=== PATIENT | female | born 1955 | race American Indian/Alaskan Native ===

== ENCOUNTER 2017-11-01 11:23 | Inpatient (IN) | payer MEDICAID ==
[2017-11-01 11:55] VITALS: BMI 22.6
[2017-11-01] MEDS ORDERED: Sodium Chloride 0.9% 1,000 ML IV STA (12:33)
--- NOTE | 2017-11-01 12:46 | ED PDOC ---
Arrival/HPI - General Chief Complaint: Altered Mental Status Time Seen by Provider: 11/01/17 11:35 Historian: Patient - History of Present Illness Narrative History of Present Illness (Text): 11/01/17 12:46 CC: Altered Mental Status HPI: Ms. Santizo is a 62 year old female with a PMHx of HIV on Truvada, emphysema and pulmonary fibrosis who presents with a 2 day history of altered mental status. Patient is accompanied by daughter and granddaughter, and they help fill in history provided by patient. They state that reports that patient has been slurring her words and her sentences have not made sense since yesterday. Daughter reports that patient lives alone and is independent. Reports patient usually responds appropriately and this is new for her. Patient reports subjective fevers, weakness, shortness of breath and productive cough with yellow sputum. Denies chills, chest pain, changes in vision, changes to bowel and bladder habits, rashes. PMHx: HIV on Truvada, emphysema and pulmonary fibrosis, HTN PSHx:denies All: NKDA Social: 1/2 pack a day >30 years, denies ETOH and substance abuse Fam hx: ? thyroid disease Meds: Truvada, Isentress, Clonidine, Advair, Ventolin, Buproprion, Elavil, Ensure, Megace as reported by [facility] PMD: Dr. Cook at [facility] Time/Duration: < week (2 days) Symptom Onset: Gradual Symptom Course: Worsening Activities at Onset: Rest Context: Standing Past Medical History - Provider Review Nursing Documentation Reviewed: Yes - Travel History Have you recently traveled outside [place] w/in the past 3 mons?: No - Infectious Disease Hx of Infectious Diseases: None - Reproductive Menopause: Yes Family/Social History - Physician Review Nursing Documentation Reviewed: Yes Family/Social History: Other (Thyroid) Smoking Status: Light Smoker < 10 Cigarettes Daily Allergies/Home Meds Allergies/Adverse Reactions: Allergies No Known Allergies Allergy (Verified 11/01/17 12:29) Home Medications: Home Meds Medication Instructions Recorded Confirmed Raltegravir Potassium [Isentress] 0 mg PO DAILY 11/01/17 11/01/17 Review of Systems - Review of Systems Constitutional: Fatigue, Weight Change (25 lb loss in 3 months) Eyes: Normal. absent: Vision Changes ENT: Normal. absent: Hearing Changes, Sore Throat Respiratory: SOB, Cough, Sputum, Wheezing Cardiovascular: Normal. absent: Chest Pain, Palpitations Gastrointestinal: Normal. absent: Abdominal Pain Musculoskeletal: Normal. absent: Arthralgias Skin: Normal. absent: Rash, Skin Lesions Neurological: Dizziness. absent: Headache, Speech Changes Endocrine: Normal. absent: Diaphoresis Hemo/Lymphatic: Normal Psychiatric: Normal Physical Exam Vital Signs Reviewed: Yes Vital Signs Temp Pulse Resp BP Pulse Ox 11/01/17 18:30 82 20 130/81 100 11/01/17 17:00 82 18 118/71 99 11/01/17 16:45 88 18 114/73 100 11/01/17 16:23 98 H 18 123/73 100 11/01/17 15:41 84 20 123/77 95 11/01/17 14:20 102 H 19 134/99 H 96 11/01/17 11:53 102.9 F H 110 H 20 147/104 H 100 Temperature: Febrile Blood Pressure: Hypertensive Pulse: Tachycardic Respiratory Rate: Normal Appearance: Positive for: Ill-Appearing, Uncomfortable, Cachectic Pain Distress: Moderate Mental Status: Positive for: Confused (AAOx2) - Systems Exam Head: Present: Atraumatic, Normocephalic Pupils: Present: PERRL Extroacular Muscles: Present: EOMI Conjunctiva: Present: Normal Neck: Present: Normal Range of Motion. No: Meningeal Signs, JVD Respiratory/Chest: Present: Wheezes, Rhonchi (LUQ>RLQ). No: Good Air Exchange Cardiovascular: Present: Regular Rate and Rhythm, Normal S1, S2, Tachycardic. No: Murmurs Abdomen: Present: Normal Bowel Sounds. No: Tenderness, Distention, Peritoneal Signs, Rebound, Guarding Back: Present: Normal Inspection. No: CVA Tenderness Upper Extremity: Present: Normal Inspection. No: Cyanosis, Edema, Swelling Lower Extremity: Present: NORMAL PULSES. No: CALF TENDERNESS, Tenderness Neurological: Present: CN II-XII Intact, Speech Normal (currently not slurred. ) Skin: Present: Warm, Dry, Normal Color. No: Rashes Psychiatric: Present: Alert, Oriented x 3 (x2). No: Normal Insight, Normal Concentration Medical Decision Making ED Course and Treatment: 11/01/17 12:42 Impression: 62 F with past medical history of HIV on Truvada, emphysema, pulmonary fibrosis and hypertension who presents with altered mental status, shortness of breath and SIRS with unknown source of infection. Last T cell count 355 in 06/13, awaiting viral load and further records. Plan: Awaiting [facility] records CBC CMP CXR CT head without contrast UA, urine cx blood cx NS bolus 11/01/17 14:37 CT head: no acute finding CXR: L upper lobe interstitial infiltrate, minimal in RLL. LP consent signed. Risks and benefits discussed with patient and family members , and patient agrees to plan. 11/01/17 15:27 Lumbar puncture performed with appropriate supervision with Dr. Frederick and under sterile conditions. 4 containers of clear cerebrospinal fluid collected, labeled, and sent to lab. Patient tolerated procedure well, sitting on side of bed flexing head and chest forward onto stool. Patient instructed to lie supine for 45 minutes. 11/01/17 18:15 Patient started on Levaquin 750 mg and Acyclovir IV for ? herpes cerebritis. ID consult placed. Unlikely PCP PNA due to lack of bilateral findings. Awaiting csf results as well as CSF count, LDH, herpes, cryptococcus, VDRL, pancultures, and procal. 11/01/17 18:58 Patient will be admitted to hospitalist service- call made to hospitalist Dr. Hewitt and medicine resident. - Lab Interpretations Lab Results: 11/01/17 13:20 11/01/17 12:45 Lab Results 11/01/17 16:54: Fluid Type Spinal fluid, CSF Volume 2 H, CSF Appearance Clear/ colorless, CSF WBC 18.0 H, CSF RBC 10.0 H, CSF Total Cell Counted 100 H, CSF Neutrophils 1 H, CSF Lymphocytes 98.0 H, CSF Monos/Macrophages 1 H, CSF Comment Straw 11/01/17 16:54: CSF Glucose 70, CSF Total Protein 37.0 11/01/17 13:20: pO2 22 L, VBG pH 7.36, VBG pCO2 58.0, VBG HCO3 32.8 H, VBG Total CO2 34.6 H, VBG O2 Sat (Calc) 42.0, VBG Base Excess 5.6 H, VBG Potassium 4.7, Glucose 87, Lactate 1.5, FiO2 21.0, Sodium 134.0, Chloride 98.0, Venous Blood Potassium 4.7 11/01/17 13:20: WBC 7.2, RBC 4.66, Hgb 14.3, Hct 45.3, MCV 97.2, MCH 30.7, MCHC 31.6, RDW 15.8 H, Plt Count 193, MPV 11.5 H, Gran % 86.7 H, Lymph % (Auto) 8.3 L , Johnston % (Auto) 4.8, Eos % (Auto) 0.1 L, Baso % (Auto) 0.1, Gran # 6.27, Lymph # (Auto) 0.6 L, Johnston # (Auto) 0.4, Eos # (Auto) 0.0, Baso # (Auto) 0.01 11/01/17 12:45: Sodium 139, Potassium 4.8, Chloride 98, Carbon Dioxide 32, Anion Gap 13, BUN 12, Creatinine 0.8, Est GFR ( Amer) > 60, Est GFR (Non- Af Amer) > 60, Random Glucose 68 L, Calcium 8.3 L, Total Bilirubin 0.6, AST 51 H , ALT 31, Alkaline Phosphatase 136 H, Total Protein 8.8 H, Albumin 3.4, Globulin 5.4, Albumin/Globulin Ratio 0.6 L 11/01/17 11:55: Urine Color Yellow, Urine Appearance Clear, Urine pH 7.0, Ur Specific [place] 1.025, Urine Protein 30 H, Urine Glucose (UA) Negative, Urine Ketones Negative, Urine Blood Negative, Urine Nitrate Negative, Urine Bilirubin Negative, Urine Urobilinogen >=8.0, Ur Leukocyte Esterase Trace H, Urine RBC 0 - 2, Urine WBC 2 - 5, Ur Epithelial Cells 6 - 8, Amorphous Sediment Few, Urine Bacteria Many, Hyaline Casts 0 - 2, Coarse Granular Casts Trace H, Urine Other Uyeast - RAD Interpretation Radiology Orders: 11/01/17 12:29 CHEST TWO VIEWS (PA/LAT) [RAD] Stat 11/01/17 12:31 HEAD W/O CONTRAST [CT] Stat - Medication Orders Current Medication Orders: Acyclovir 635 mg/ Sodium (Chloride) 100 mls @ 100 mls/hr IV Q8 KARYN PRN Reason: Protocol Discontinued Medications Sodium Chloride (Sodium Chloride 0.9%) 1,000 mls @ 999 mls/hr IV .Q1H1M STA Stop: 11/01/17 13:33 Last Admin: 11/01/17 12:30 Dose: 999 mls/hr eMAR Start Stop Document 11/01/17 12:30 SZA (Rec: 11/01/17 14:24 [facility] [id number]) Intravenous Solution Start Date 11/01/17 Start Time 12:30 End Date 11/01/17 End time 13:30 Total Infusion Time 60 Levofloxacin/Dextrose (Levaquin 750mg) 750 mg IVPB STAT STA PRN Reason: Protocol Stop: 11/01/17 18:24 Last Admin: 11/01/17 19:16 Dose: 750 mg eMAR Start Stop Document 11/01/17 19:16 SHAYLA (Rec: 11/01/17 19:16 [facility] [id number]) Intravenous Solution Start Date 11/01/17 Start Time 19:00 End Date 11/01/17 End time 20:30 Total Infusion Time 90 Disposition/Present on Arrival - Present on Arrival Any Indicators Present on Arrival: No History of DVT/PE: No History of Uncontrolled Diabetes: No Urinary Catheter: No History of Decub. Ulcer: No History Surgical Site Infection Following: None - Disposition Have Diagnosis and Disposition been Completed?: Yes Diagnosis: Pneumonia, Altered mental state Disposition: HOSPITALIZED Disposition Time: 18:00 Patient Plan: Admission Patient Problems: Current Active Problems Problem Status Onset Altered mental state Acute Pneumonia Acute Condition: FAIR
[2017-11-01 13:34] LABS: VENOUS BLOOD GAS BASE EXCESS 5.6 mmol/L (0.0-2.0); VENOUS BLOOD GAS PO2 22 mm/Hg (30-55); VENOUS BLOOD PH 7.36 (7.32-7.43)
[2017-11-01 13:38] LABS: HEMOGLOBIN 14.3 g/dL (12.0-16.0); MEAN CELL VOLUME 97.2 fl (80.0-105.0); MEAN CORPUSCULAR HEMOGLOBIN 30.7 pg (25.0-35.0); MEAN CORPUSCULAR HGB CONC 31.6 g/dl (31.0-37.0); RBC 4.66 10^6/uL (3.5-6.1); RED CELL DISTRIBUTION WIDTH 15.8 % (11.5-14.5); WHITE BLOOD COUNT 7.2 10^3/ul (4.5-11.0)
[2017-11-01 13:38] LABS: URINE BILIRUBIN NEGATIVE (NEGATIVE); URINE BLOOD NEGATIVE (NEGATIVE); URINE GLUCOSE (UA) NEGATIVE (NEGATIVE); URINE LEUKOCYTE ESTERASE TRACE Leu/uL (NEGATIVE); URINE PROTEIN 30 mg/dL (<30 mg/dL); URINE UROBILINOGEN >=8.0 E.U./dL (<1 E.U./dL)
[2017-11-01 13:39] LABS: BASO # 0.01 K/mm3 (0.0-2.0); BASO % 0.1 % (0.0-3.0); EOS % 0.1 % (1.5-5.0); GRAN # 6.27 (1.4-6.5); GRAN % 86.7 % (50.0-68.0); LYMPH # 0.6 (1.2-3.4); LYMPH % 8.3 % (22.0-35.0); MEAN PLATELET VOLUME 11.5 fl (7.0-11.0); MONO # 0.4 (0.1-0.6); MONO % 4.8 % (1.0-6.0)
--- NOTE | 2017-11-01 14:12 | CT ---
Date of service: 11/01/2017 PROCEDURE: CT HEAD WITHOUT CONTRAST. HISTORY: AMS COMPARISON: None available. TECHNIQUE: Axial computed tomography images were obtained through the head/brain without intravenous contrast. Radiation dose: Total exam DLP = 782 mGy-cm. This CT exam was performed using one or more of the following dose reduction techniques: Automated exposure control, adjustment of the mA and/or kV according to patient size, and/or use of iterative reconstruction technique. FINDINGS: HEMORRHAGE: No intracranial hemorrhage. BRAIN: No mass effect or edema. No atrophy or chronic microvascular ischemic changes. VENTRICLES: Unremarkable. No hydrocephalus. CALVARIUM: Unremarkable. PARANASAL SINUSES: Unremarkable as visualized. No significant inflammatory changes. MASTOID AIR CELLS: Unremarkable as visualized. No inflammatory changes. OTHER FINDINGS: None. IMPRESSION: No acute findings
--- NOTE | 2017-11-01 14:14 | RAD ---
Date of service: 11/01/2017 HISTORY: shortness of breath COMPARISON: No prior. TECHNIQUE: Chest PA and lateral FINDINGS: LUNGS: There is a left upper lobe interstitial infiltrate and a minimal interstitial infiltrate in the right lower lobe. PLEURA: No significant pleural effusion identified. No pneumothorax apparent. CARDIOVASCULAR: Normal. OSSEOUS STRUCTURES: No significant abnormalities. VISUALIZED UPPER ABDOMEN: Normal. OTHER FINDINGS: None. IMPRESSION: There is a left upper lobe interstitial infiltrate and a minimal interstitial infiltrate in the right lower lobe.
[2017-11-01 14:41] LABS: URINE APPEARANCE CLEAR (CLEAR); URINE COLOR YELLOW (YELLOW)
[2017-11-01 14:52] LABS: URINE BACTERIA MANY (NEG); URINE HYALINE CAST 0 - 2 /hpf; URINE RBC 0 - 2 /hpf (0-2)
[2017-11-01 14:53] LABS: URINE AMORPHOUS SEDIMENT FEW; URINE COARSE GRANULAR CAST TRACE /hpf (0-2)
--- NOTE | 2017-11-01 15:54 | CARD ---
APPROVED REPORT Date of service: 11/01/2017 EKG Measurement Heart [id number] <Conclusion> Sinus tachycardia Left anterior fascicular block Anteroseptal infarct, age undetermined Abnormal ECG
[2017-11-01] MEDS ORDERED: Lidocaine PF 2% (5 ml) Inj (For Cardiac Arrhy) ONE (16:27)
[2017-11-01 16:55] LABS: FLUID TYPE SPINAL FLUID
[2017-11-01 18:16] LABS: CSF VOLUME 2 mL (0-1)
[2017-11-01 18:17] LABS: CSF APPEARANCE CLEAR/COLORLESS (CLEAR)
[2017-11-01] MEDS ORDERED: levoFLOXacin 750 mg in D5W 150 ML BAG IVPB STA (18:23)
[2017-11-01 18:31] LABS: ALB/GLOB RATIO 0.6 (1.1-1.8); ALBUMIN 3.4 g/dL (3.0-4.8); ALT/SGPT 31 U/L (7-56); AST/SGOT 51 U/L (14-36); BLOOD UREA NITROGEN 12 mg/dL (7-21); CALCIUM 8.3 mg/dL (8.4-10.5); GFR NON-AFRICAN AMERICAN > 60
[2017-11-01 18:59] LABS: CSF MONO/MACROPHAGE 1 % (0-0)
[2017-11-01] MEDS ORDERED: Vancomycin 1gm in NS 250ml 1 GM/250 ML BAG IVPB STA (20:22)
[2017-11-01] MEDS ORDERED: Fluconazole IV 200mg/100 ml NS 100 ML IVPB ONE (20:40)
--- NOTE | 2017-11-01 21:19 | CP.PCM.HP ---
<Levon Chamberlain - Last Filed: 11/01/17 21:07> History of Present Illness - History of Present Illness History of Present Illness: Levon Chamberlain DO PGY-1, [employer] Medicine History and Physical for Dr. Hewitt 62 y o female PMhx HIV on Truvada, emphysema, and pulmonary fibrosis, who presented to the ED with a 2 day hx of AMS. Pt was accompanied at bedside by daughter and her fiance, unable to obtain hx or 12-point ROS from pt due to current mental status. Pt's family at bedside states that pt's reported that pt was confabulating her words, clear speech, but states words out of order that did not make sense; this has been occurring since yesterday. Pt's daughter reported that pt lives alone and is independent with ADLs, but recently over the past several months has been doing activities more slowly and has been more fatigued. Reports pt has had a 15 y hx since being diagnosed with HIV. Last viral load < 20, T-cell count 355 in May 2017. Pt at time of presentation to ED reported subjective fevers, weakness, shortness of breath, and productive cough with yellow sputum. Denied chills, chest pain, vision changes, changes in bowel/bladder habits, or new rashes. Medical records being obtained by ED from [facility]. PMhx: HIV on Truvada, emphysema, pulmonary fibrosis, HTN PSurgHx: denies Allergies: NKDA Social: 1/2 ppd since age 16, denies EtOH and substance abuse Fam hx: ?thyroid disease Home meds: Truvada, Isentress, Clonidine, Advair, Ventolin, Buproprion, Elavil, Ensure, Megace as reported by [facility] PMD: Dr. Cook at [facility]; pt's family unsure if pt follows with ID specialist Present on Admission - Present on Admission Any Indicators Present on Admission: No Review of Systems - Review of Systems Systems not reviewed;Unavailable: Altered Mental Status - Constitutional Constitutional: As Per HPI - Cardiovascular Cardiovascular: As Per HPI - Respiratory Respiratory: As Per HPI Past Patient History - Infectious Disease Hx of Infectious Diseases: None - Past Social History Smoking Status: Light Smoker < 10 Cigarettes Daily - CARDIAC Hx Cardiac Disorders: No - PULMONARY Other/Comment: pulmonary fibrosis - NEUROLOGICAL Hx Neurological Disorder: No - HEMATOLOGICAL/ONCOLOGICAL Hx Human Immunodeficiency Virus (HIV): Yes - PSYCHIATRIC Hx Substance Use: No - SURGICAL HISTORY Hx Surgeries: No - ANESTHESIA Hx Anesthesia: No Meds Allergies/Adverse Reactions: Allergies Allergy/AdvReac Type Severity Reaction Status Date / Time No Known Allergies Allergy Verified 11/01/17 12:29 Physical Exam - Constitutional Appears: No Acute Distress, Chronically Ill Additional comments: Difficult to arouse at bedside - Head Exam Head Exam: ATRAUMATIC, NORMAL INSPECTION - Eye Exam Eye Exam: EOMI, Normal appearance, PERRL - ENT Exam ENT Exam: Mucous Membranes Moist - Respiratory Exam Respiratory Exam: Clear to Auscultation Bilateral, Rales, NORMAL BREATHING PATTERN. absent: Wheezes - Cardiovascular Exam Cardiovascular Exam: REGULAR RHYTHM, +S1, +S2 - GI/Abdominal Exam GI & Abdominal Exam: Normal Bowel Sounds, Soft. absent: Distended, Guarding, Organomegaly, Tenderness - Extremities Exam Extremities exam: Positive for: full ROM, normal capillary refill, pedal pulses present - Neurological Exam Neurological exam: Reflexes Normal Additional comments: AAOx1 - Skin Skin Exam: Dry, Intact, Warm Results - Vital Signs Recent Vital Signs: Last Vital Signs Temp 98.8 F 11/01/17 18:30 Pulse 82 11/01/17 18:30 Resp 20 11/01/17 18:30 BP 130/81 11/01/17 18:30 Pulse Ox 100 11/01/17 18:30 - Labs Result Diagrams: 11/01/17 13:20 11/01/17 12:45 Assessment & Plan - Assessment and Plan (Free Text) Assessment: 62 y o female PMhx HIV on Truvada, emphysema, and pulmonary fibrosis, who presented to the ED with a 2 day hx of AMS. Found on CXR to have L upper lobe interstitial infiltrate and minimal interstitial infiltrate in R lower lobe. Head CT neg for acute changes. Lumbar puncture done in ED, fluid studies pending. Plan: AMS -Head CT neg for acute changes -Likely 2/2 chronic HIV, r/o meningitis, encephalitis -Lumbar puncture done in ED, fluid studies pending -Neuro checks q 4 h Pneumonia -R/o atypical etiologies due to HIV status -CXR findings as described in assessment -Sputum, blood, urine cxs pending -1x vancomycin -2 g rocephin IVPB daily -Zithromax -Bactrim -Pending ESR, CRP, Cryptococcal Ag, HSV -ID consulted, recs appreciated -Keep pt NPO due to aspiration risk Candidiasis -1x diflucan IV, observed on exam Hx HIV -C/w truvada -Verify home meds with records being sent from [facility] DVT/GI ppx: SCDs/Protonix Pt seen, examined with, and plan discussed with Dr. Hewitt, attending. <Rashida Hewitt - Last Filed: 11/02/17 04:59> Results - Vital Signs Recent Vital Signs: Last Vital Signs Temp 98.5 F 11/01/17 22:30 Pulse 107 H 11/01/17 22:30 Resp 18 11/01/17 22:30 BP 112/80 11/01/17 22:30 Pulse Ox 100 11/01/17 20:25 - Labs Result Diagrams: 11/01/17 13:20 11/01/17 12:45 Labs: Laboratory Results - last 24 hr 11/01/17 21:05 Troponin I 0.09 Attending/Attestation - Attestation I have personally seen and examined this patient.: Yes I have fully participated in the care of the patient.: Yes I have reviewed all pertinent clinical information: Yes
[2017-11-01] MEDS: SODIUM CHLORIDE 0.9% IV SCH (22:26)
[2017-11-01] MEDS: ACYCLOVIR IV SCH (22:26)
[2017-11-01] MEDS: SULFAMETHOXAZOLE IVPB SCH (23:29)
[2017-11-01] MEDS: TRIMETHOPRIM IVPB SCH (23:29)
[2017-11-01] MEDS: DEXTROSE 5% IVPB SCH (23:29)
[2017-11-01] MEDS: WATER IVPB SCH (23:29)
[2017-11-02] MEDS: Dextrose 5%/0.9% NS 1,000 ML IV SCH ×2 (05:17→21:25)
[2017-11-02] MEDS: SODIUM CHLORIDE 0.9% IV SCH ×3 (05:53→22:31)
[2017-11-02] MEDS: ACYCLOVIR IV SCH ×3 (05:53→22:31)
[2017-11-02 07:05] LABS: ALB/GLOB RATIO 0.6 (1.1-1.8); ALBUMIN 2.8 g/dL (3.0-4.8); ALT/SGPT 31 U/L (7-56); AST/SGOT 30 U/L (14-36); BLOOD UREA NITROGEN 11 mg/dL (7-21); CALCIUM 7.6 mg/dL (8.4-10.5); GFR NON-AFRICAN AMERICAN > 60
[2017-11-02 07:11] LABS: BASO # 0.01 K/mm3 (0.0-2.0); BASO % 0.1 % (0.0-3.0); EOS % 0.2 % (1.5-5.0); GRAN # 6.77 (1.4-6.5); GRAN % 84.3 % (50.0-68.0); HEMOGLOBIN 12.8 g/dL (12.0-16.0); LYMPH # 0.8 (1.2-3.4); LYMPH % 10.5 % (22.0-35.0); MEAN CELL VOLUME 98.1 fl (80.0-105.0); MEAN CORPUSCULAR HEMOGLOBIN 29.8 pg (25.0-35.0); MEAN CORPUSCULAR HGB CONC 30.3 g/dl (31.0-37.0); MEAN PLATELET VOLUME 10.4 fl (7.0-11.0); MONO # 0.4 (0.1-0.6); MONO % 4.9 % (1.0-6.0); RBC 4.3 10^6/uL (3.5-6.1); RED CELL DISTRIBUTION WIDTH 15.5 % (11.5-14.5)
--- NOTE | 2017-11-02 08:03 | CP.PCM.CON ---
<Trang Stacy - Last Filed: 11/02/17 19:21> History of Present Illness - History of Present Illness History of Present Illness: Pgy3 ID Consult note for Dr. Brumfield Please note patient was a poor historian who could not recall events that brought her to the ER and there was no family at bedside so history as per EMR 62yo female PMHx HIV on HAART, pulmonary fibrosis, and emphysema presents to the ER with 2 days of AMS. As per EMR patient's boyfriend reported she was speaking incoherently; the patient recalled that she was becoming aggravated and her boyfriend called EMS. As per EMR patient at baseline lives alone and completes ADLs independently however over the past several months she has been doing things slowly and has become more fatigued. Patient was diagnosed with HIV 15 years ago and has been compliant with medications. She follows up with Dr. Urbina and her last viral load was <20 and T-cell count was 355 in May 2017. Patient stated she had an appointment on November 10, 2017. This AM patient was ao x 3 and resting comfortably. She denied acute complaints of fever, chills, headache, dizziness, chest pain, palpitations, abdominal pain , nausea, vomiting, bowel/bladder complaints, pain/swelling in her legs bilaterally. She admitted to a cough which was productive with phlegm but no hemoptysis and some dyspnea on exertion which is chronic. PMHx: HIV on Truvada and Isentress, emphysema, pulmonary fibrosis, HTN PSurgHx: denies Meds: pls see chart ALL: NKDA SocHx: 1/2 ppd since age 16, denies EtOH and substance abuse FamHx: ?thyroid disease PMD: Dr. Cook at [facility] HIV specialist: Dr. Urbina Review of Systems - Review of Systems All systems: reviewed and no additional remarkable complaints except Review of Systems: pls see chart Past Patient History - Infectious Disease Hx of Infectious Diseases: None - Past Social History Smoking Status: Light Smoker < 10 Cigarettes Daily - CARDIAC Hx Cardiac Disorders: No - PULMONARY Other/Comment: pulmonary fibrosis - NEUROLOGICAL Hx Neurological Disorder: No - HEMATOLOGICAL/ONCOLOGICAL Hx Human Immunodeficiency Virus (HIV): Yes - MUSCULOSKELETAL/RHEUMATOLOGICAL Hx Falls: Yes - PSYCHIATRIC Hx Substance Use: No - SURGICAL HISTORY Hx Surgeries: No - ANESTHESIA Hx Anesthesia: No Meds Allergies/Adverse Reactions: Allergies Allergy/AdvReac Type Severity Reaction Status Date / Time No Known Allergies Allergy Verified 11/01/17 12:29 - Medications Medications: Current Medications Acyclovir 635 mg/ Sodium (Chloride) 100 mls @ 100 mls/hr IV Q8 [facility] PRN Reason: Protocol Last Admin: 11/02/17 05:53 Dose: 100 mls/hr Ceftriaxone Sodium (Rocephin 2 Gm Ivpb) 2 gm in 100 mls @ 100 mls/hr IVPB DAILY [facility] PRN Reason: Protocol Azithromycin (Zithromax 500mg In Ns) 500 mg in 250 mls @ 167 mls/hr IVPB DAILY [facility] PRN Reason: Protocol Trimethoprim/Sulfamethoxazole (254 mg/ Dextrose) 500 mls @ 250 mls/hr IVPB Q12 [facility] Last Admin: 11/01/17 23:29 Dose: 250 mls/hr Dextrose/Sodium Chloride (Dextrose 5%/0.9% Ns 1000 Ml) 1,000 mls @ 70 mls/hr IV .[id number] [facility] Last Admin: 11/02/17 05:17 Dose: 70 mls/hr Pantoprazole Sodium (Protonix Inj) 40 mg IVP DAILY [facility] Physical Exam - Constitutional Appears: No Acute Distress - Head Exam Head Exam: ATRAUMATIC, NORMAL INSPECTION, NORMOCEPHALIC - Eye Exam Eye Exam: EOMI, Normal appearance, PERRL. absent: Conjunctival injection, Scleral icterus - ENT Exam ENT Exam: Mucous Membranes Dry - Respiratory Exam Respiratory Exam: Prolonged Expiratory Phase, Rhonchi, Wheezes. absent: Accessory Muscle Use, Clear to Auscultation Bilateral, NORMAL BREATHING PATTERN - Cardiovascular Exam Cardiovascular Exam: Tachycardia, +S1, +S2 - GI/Abdominal Exam GI & Abdominal Exam: Normal Bowel Sounds, Soft. absent: Tenderness - Rectal Exam Rectal Exam: Deferred - Extremities Exam Extremities exam: Positive for: normal capillary refill, normal inspection, pedal pulses present. Negative for: pedal edema - Neurological Exam Neurological exam: Alert, CN II-XII Intact, Oriented x3 - Psychiatric Exam Psychiatric exam: Normal Affect, Normal Mood - Skin Skin Exam: Dry, Intact, Normal Color, Warm Results - Vital Signs Recent Vital Signs: Last Vital Signs Temp 98 F 11/02/17 06:00 Pulse 92 H 11/02/17 06:00 Resp 20 11/02/17 06:00 BP 116/77 11/02/17 06:00 Pulse Ox 97 11/02/17 06:00 - Labs Result Diagrams: 11/02/17 06:18 11/02/17 06:18 Labs: Laboratory Results - last 24 hr 11/01/17 11/02/17 11/02/17 21:05 06:18 06:18 WBC 8.0 RBC 4.30 Hgb 12.8 Hct 42.2 MCV 98.1 MCH 29.8 MCHC 30.3 L RDW 15.5 H Plt Count 188 MPV 10.4 Gran % 84.3 H Lymph % (Auto) 10.5 L [place] % (Auto) 4.9 Eos % (Auto) 0.2 L Baso % (Auto) 0.1 Gran # 6.77 H Lymph # (Auto) 0.8 L [place] # (Auto) 0.4 Eos # (Auto) 0.0 Baso # (Auto) 0.01 Sodium 135 Potassium 4.5 Chloride 99 Carbon Dioxide 31 Anion Gap 9 L BUN 11 Creatinine 0.7 Est GFR ( Amer) > 60 Est GFR (Non-Af Amer) > 60 POC Glucose (mg/dL) Random Glucose 87 Calcium 7.6 L Total Bilirubin 0.5 AST 30 ALT 31 Alkaline Phosphatase 110 Troponin I 0.09 Total Protein 7.5 Albumin 2.8 L Globulin 4.7 Albumin/Globulin Ratio 0.6 L 11/02/17 06:43 WBC RBC Hgb Hct MCV MCH MCHC RDW Plt Count MPV Gran % Lymph % (Auto) [place] % (Auto) Eos % (Auto) Baso % (Auto) Gran # Lymph # (Auto) [place] # (Auto) Eos # (Auto) Baso # (Auto) Sodium Potassium Chloride Carbon Dioxide Anion Gap BUN Creatinine Est GFR ( Amer) Est GFR (Non-Af Amer) POC Glucose (mg/dL) 80 Random Glucose Calcium Total Bilirubin AST ALT Alkaline Phosphatase Troponin I Total Protein Albumin Globulin Albumin/Globulin Ratio Assessment & Plan - Assessment and Plan (Free Text) Assessment: 62yo female PMHx HIV on HAART, pulmonary fibrosis, and emphysema presents to the ER with 2 days of AMS. ID consulted for questionable PCP pneumonia Plan: -patient placed on droplet isolation in light of suspected meningitis -CT head: unremarkable -Spinal tap: Volume: 2 Appearance: clear/colorless WBC: 18 RBC: 10 Total Cell Count: 100 Neutrophils: 1 Lymphocytes: 98 Monocytes/Macrophages: 1 Glucose: 70 Total Protein: 37 f/u pending studies and CSF cultures -CT Chest: diffuse IS infiltrate/pulmonary fibrosis in the left upper lobe. There is more focal area of consolidation/scarrying and volume loss in the superior segment of the left lower lobe. There are also some bulla contiguous with the consolidation. There is also evidence of emphysema in both upper lobes. -CXR: There is left upper lobe IS infiltrate adn a minimal IS infiltrate in the R lower lobe -blood culture prelim x 1 : no growth -urine culture: consider repeat -f/u Quantiferon, [id number]-G-Nkxzst, CD4/CD8, Viral Load, HSV, LDH, VDRL, Sputum cx , AFB cx -f/u Brain w/o contrast -f/u Echo -continue home HIV meds: Truvada and Isentress -patient on Acyclovir, Azithromycin, Rocpehin, Bactrim, and Vancomycin -continue management as per primary ID will continue to follow Discussed with Dr. Octaviano Stacy Pgy3 <Alireza Brumfield - Last Filed: 11/02/17 19:58> Meds - Medications Medications: Current Medications Albuterol/Ipratropium (Duoneb 3 Mg/0.5 Mg (3 Ml) Ud) 3 ml I[facility] [id number] PRN PRN Reason: Wheezing Amitriptyline HCl (Elavil) 100 mg PO DAILY [facility] Last Admin: 11/02/17 09:33 Dose: Not Given Arformoterol Tartrate (Brovana) 15 mcg IH [id number] [facility] Budesonide (Pulmicort Respules) 0.5 mg IH [id number] [facility] Bupropion HCl (Wellbutrin Sr 150 Mg) 150 mg PO DAILY [facility] Last Admin: 11/02/17 11:31 Dose: 150 mg Clonidine HCl (Catapres) 0.3 mg PO TID [facility] Last Admin: 11/02/17 18:27 Dose: Not Given Emtricitabine/Tenofovir (Truvada 200 Mg-300 Mg) 1 tab PO DAILY [facility] PRN Reason: Protocol Last Admin: 11/02/17 11:32 Dose: 1 tab Heparin Sodium (Porcine) (Heparin) 5,000 units SC Q8 [facility] PRN Reason: Protocol Last Admin: 11/02/17 14:00 Dose: Not Given Acyclovir 635 mg/ Sodium (Chloride) 100 mls @ 100 mls/hr IV Q8 [facility] PRN Reason: Protocol Last Admin: 11/02/17 18:23 Dose: 100 mls/hr Azithromycin (Zithromax 500mg In Ns) 500 mg in 250 mls @ 167 mls/hr IVPB DAILY [facility] PRN Reason: Protocol Last Admin: 11/02/17 09:37 Dose: 167 mls/hr Trimethoprim/Sulfamethoxazole (254 mg/ Dextrose) 500 mls @ 250 mls/hr IVPB Q12 [facility] Last Admin: 11/02/17 09:34 Dose: 250 mls/hr Dextrose/Sodium Chloride (Dextrose 5%/0.9% Ns 1000 Ml) 1,000 mls @ 70 mls/hr IV .[id number] [facility] Last Admin: 11/02/17 05:17 Dose: 70 mls/hr Ceftriaxone Sodium (Rocephin 2 Gm Ivpb) 2 gm in 100 mls @ 100 mls/hr IVPB Q12 [facility] PRN Reason: Protocol Vancomycin HCl (Vancomycin 1gm) 1 gm in 250 mls @ 167 mls/hr IVPB Q12H [facility] PRN Reason: Protocol Last Admin: 11/02/17 14:00 Dose: Not Given Ibuprofen (Motrin Tab) 800 mg PO TID PRN PRN Reason: Pain, moderate (4-7) Megestrol Acetate (Megace) 400 mg PO DAILY [facility] Last Admin: 11/02/17 09:34 Dose: Not Given Methylprednisolone (Solu-Medrol) 40 mg IVP Q8H [facility] Last Admin: 11/02/17 14:00 Dose: Not Given Pantoprazole Sodium (Protonix Inj) 40 mg IVP DAILY [facility] Last Admin: 11/02/17 11:31 Dose: 40 mg Raltegravir (Isentress) 400 mg PO BID [facility] PRN Reason: Protocol Last Admin: 11/02/17 18:27 Dose: 400 mg Results - Vital Signs Recent Vital Signs: Last Vital Signs Temp 98.9 F 11/02/17 14:00 Pulse 20 L 11/02/17 14:00 Resp 96 H 11/02/17 14:00 BP 92/60 L 09/07/18 18:27 Pulse Ox 101 H 11/02/17 14:00 - Labs Result Diagrams: 11/02/17 06:18 11/02/17 06:18 Labs: Laboratory Results - last 24 hr 11/01/17 11/02/17 11/02/17 21:05 06:18 06:18 WBC 8.0 RBC 4.30 Hgb 12.8 Hct 42.2 MCV 98.1 MCH 29.8 MCHC 30.3 L RDW 15.5 H Plt Count 188 MPV 10.4 Gran % 84.3 H Lymph % (Auto) 10.5 L [place] % (Auto) 4.9 Eos % (Auto) 0.2 L Baso % (Auto) 0.1 Gran # 6.77 H Lymph # (Auto) 0.8 L [place] # (Auto) 0.4 Eos # (Auto) 0.0 Baso # (Auto) 0.01 Sodium 135 Potassium 4.5 Chloride 99 Carbon Dioxide 31 Anion Gap 9 L BUN 11 Creatinine 0.7 Est GFR ( Amer) > 60 Est GFR (Non-Af Amer) > 60 POC Glucose (mg/dL) Random Glucose 87 Calcium 7.6 L Total Bilirubin 0.5 AST 30 ALT 31 Alkaline Phosphatase 110 Lactate Dehydrogenase Troponin I 0.09 NT-Pro-B Natriuret Pep Total Protein 7.5 Albumin 2.8 L Globulin 4.7 Albumin/Globulin Ratio 0.6 L 11/02/17 11/02/17 11/02/17 06:43 10:44 12:01 WBC RBC Hgb Hct MCV MCH MCHC RDW Plt Count MPV Gran % Lymph % (Auto) [place] % (Auto) Eos % (Auto) Baso % (Auto) Gran # Lymph # (Auto) [place] # (Auto) Eos # (Auto) Baso # (Auto) Sodium Potassium Chloride Carbon Dioxide Anion Gap BUN Creatinine Est GFR ( Amer) Est GFR (Non-Af Amer) POC Glucose (mg/dL) 80 75 Random Glucose Calcium Total Bilirubin AST ALT Alkaline Phosphatase Lactate Dehydrogenase 799 H Troponin I NT-Pro-B Natriuret Pep Total Protein Albumin Globulin Albumin/Globulin Ratio 11/02/17 11/02/17 12:01 16:05 WBC RBC Hgb Hct MCV MCH MCHC RDW Plt Count MPV Gran % Lymph % (Auto) [place] % (Auto) Eos % (Auto) Baso % (Auto) Gran # Lymph # (Auto) [place] # (Auto) Eos # (Auto) Baso # (Auto) Sodium Potassium Chloride Carbon Dioxide Anion Gap BUN Creatinine Est GFR ( Amer) Est GFR (Non-Af Amer) POC Glucose (mg/dL) 108 Random Glucose Calcium Total Bilirubin AST ALT Alkaline Phosphatase Lactate Dehydrogenase Troponin I NT-Pro-B Natriuret Pep 2150 H Total Protein Albumin Globulin Albumin/Globulin Ratio Assessment & Plan - Assessment and Plan (Free Text) Plan: Infectious Diseases Attending Physician Addendum Patient seen and examined, discussed with medical services assistant. I have reviewed the pertinent clinical information for the patient, including history of present illness, medical, personal and social histories, lab results and imaging findings. I agree with the above findings, assessment and plan. In addition, will continue the patient on Vancomycin, Rocephin for possible sepsis from meningitis. Also will continue patient on IV Acyclovir pending HSV PCR in CSF. Will follow up blood cx and CSF cx, CSF Crypt Ag and CSF VDRL. Will get serum beta glucan and LDH, and continue IV Bactrim, concerned about pneumocystis pneumonia in this patient with chronic HIV infection. Continue ART. Discussed with Dr. Castillo - will get Sputum AFB x 3, put on isolation, will monitor clinically.
[2017-11-02] MEDS ORDERED: Albuterol-Ipratrop 3 mg / 0.5 (3 ml) UD IH PRN (08:21)
[2017-11-02] MEDS ORDERED: Albuterol HFA 90 mcg/actuation (8 g) IH PRN (08:29)
[2017-11-02] MEDS ORDERED: Levalbuterol 1.25 MG/3 ML Inhal Soln UD IH ONE (09:29)
[2017-11-02] MEDS: Megestrol Acetate 40 mg/ml Cup PO SCH (09:34)
[2017-11-02] MEDS: SULFAMETHOXAZOLE IVPB SCH ×2 (09:34→22:32)
[2017-11-02] MEDS: WATER IVPB SCH ×2 (09:34→22:32)
[2017-11-02] MEDS: TRIMETHOPRIM IVPB SCH ×2 (09:34→22:32)
[2017-11-02] MEDS: DEXTROSE 5% IVPB SCH ×2 (09:34→22:32)
[2017-11-02] MEDS: Azithromycin 500MG/NS 250ml 500 MG/250 ML BAG IVPB SCH (09:37)
[2017-11-02] MEDS ORDERED: Fluticasone-Salmeterol 250-50mcg Diskus IH SCH (10:00)
[2017-11-02] MEDS ORDERED: cefTRIAXone 2 GM IN NS 2 GM/100 ML BAG IVPB SCH ×2 (10:00→22:00)
--- NOTE | 2017-11-02 10:03 | CT ---
Date of service: 11/02/2017 PROCEDURE: CT Chest without contrast HISTORY: rule out infiltrates COMPARISON: None available. TECHNIQUE: Contiguous axial images were obtained through the chest without intravenous contrast enhancement. Sagittal and coronal reconstructions were performed. Radiation dose (DLP): 177 mGy-cm. This CT exam was performed using one or more of the following dose reduction techniques: Automated exposure control, adjustment of the mA and/or kV according to patient size, and/or use of iterative reconstruction technique. FINDINGS: LUNGS: There is a diffuse interstitial infiltrate or pulmonary fibrosis in the left upper lobe. There is a more focal area of consolidation or scarring and volume loss in the superior segment of the left lower lobe. There are also some bulla contiguous with the consolidation. There is also evidence of emphysema in both upper lobes MEDIASTINUM: Unremarkable thoracic aorta. No aneurysm. Normal sized heart. Main pulmonary artery unremarkable. No vascular congestion. No lymphadenopathy. Mild coronary artery calcification PLEURA: No pleural fluid. No pneumothorax. BONES: No fracture. No destructive lesion. UPPER ABDOMEN: Grossly unremarkable. OTHER FINDINGS: None. IMPRESSION: There is a diffuse interstitial infiltrate or pulmonary fibrosis in the left upper lobe. There is a more focal area of consolidation or scarring and volume loss in the superior segment of the left lower lobe. There are also some bulla contiguous with the consolidation. There is also evidence of emphysema in both upper lobes
[2017-11-02] MEDS: buPROPion SR 150 MG TABLET PO SCH (11:31)
[2017-11-02] MEDS: Emtricitabine-Tenofovir 200 mg-300 mg Tab PO SCH (11:32)
[2017-11-02] MEDS: Vancomycin 1gm in NS 250ml 1 GM/250 ML BAG IVPB SCH (14:00)
[2017-11-02] MEDS: MethylPREDNISolone 40 mg Vial IVP SCH ×2 (14:00→21:21)
--- NOTE | 2017-11-02 15:16 | CON ---
DATE: 11/02/2017 HISTORY OF PRESENT ILLNESS: This is a 62-year-old lady with history of HIV, emphysema/COPD (CD4 count 355 in 05/2017, last viral load less than 20), on HAART medication, who presented this time with history of altered mental status for 2 days. It was reported that she was confabulating her words, had unclear and gibberish speech. Mental status somewhat improved since her staying in the hospital. She also had one episode of fever and provided combination of elevated temperature and altered mental status, spinal tap was done to rule out bacterial meningitis. It showed normal glucose and fairly normal protein level; however, slightly elevated cell count with a lymphocyte predominance. The patient also complained of some cough with greenish/yellowish sputum production, some shortness of breath, tiredness and fatigue. No nausea, no vomiting, no diarrhea, no constipation. PAST MEDICAL HISTORY: Emphysema; COPD; HIV, on Truvada. PAST SURGICAL HISTORY: None. ALLERGIES: NKDA. SOCIAL HISTORY: The patient is active smoker. She smokes about half pack a day since age 16. No alcohol or illicit drug abuse. FAMILY HISTORY: Noncontributory. HOME MEDICATIONS: Truvada, Isentress, clonidine, Advair, Ventolin, bupropion, Elavil, Ensure, Megace. MEDICATIONS IN THE HOSPITAL: Acyclovir, DuoNeb p.r.n., Elavil, Brovana, Pulmicort, bupropion, clonidine, D5 normal saline at 70 mL/hour, Truvada, heparin 5000 subcu every 8, ibuprofen p.r.n., Megace, Solu-Medrol 40 mg IV every 8 (just has been started by me), Protonix 40 mg IV daily, Isentress, ceftriaxone, Bactrim, azithromycin, vancomycin. REVIEW OF SYSTEMS: Review of 12-organ systems other than mentioned in the history of present illness is negative. PHYSICAL EXAMINATION: VITAL SIGNS: Blood pressure 116/77, heart rate 92, temperature 98, respiratory rate 20, oxygen saturation 97% on 2 L nasal cannula. HEENT: Head and neck atraumatic. LUNGS: There are some squeaks and inspiratory crackles on the left side and some wheezes on the right side of her lungs. HEART: Regular rate and rhythm. S1 and S2 normal. ABDOMEN: Soft, nontender and nondistended. MUSCULOSKELETAL: No C/C/E. NEURO: The patient moves all extremities spontaneously. SKIN: Moist. PSYCH: The patient comfortable and appears to be lucid. LABORATORY DATA: CSF showed clear spinal fluid with lymphocyte predominant slightly elevated cell count, wbc 18, rbc is 10, glucose 17, total protein 37, cryptococcal antigen not detected. Her HSV PCR from the spinal fluid was pending. Sodium 135, potassium 4.5, chloride 99, carbon dioxide 31, BUN 11, creatinine 0.7, glucose 75, AST 30, ALT 31, total bilirubin 0.5, LDH 799. Troponin 0.09. Procalcitonin less than 0.05. WBC 8, hemoglobin 12.8, platelet count 188, eosinophil count 0.2, lymphocyte 10.5, granulocyte percentage 84.3. CT chest revealed diffuse interstitial infiltrate with some emphysema in the both lobes; however, left more than right. Some questionable honeycombing or increased emphysema in the left lower lobe with some consolidative changes in the left lower lobe with some air bronchograms. Head CT: No active intracranial pathology. EKG showed sinus tachycardia without signs of ischemic changes. ASSESSMENT AND PLAN: This is a 62-year-old lady who presented with what appears to be community-acquired pneumonia in the setting of chronic obstructive pulmonary disease exacerbation with underline human immunodeficiency virus diagnosis. As she had altered mental status and fever, spinal tap was done, which however did not reveal any signs suggestive of bacterial central nervous system infection. Due to substantial architectural distortion in the both lungs (left more than right) and substantial emphysema, detailed assessment of radiographic findings on the CAT scan of the chest may not be accurate, nevertheless there are some interstitial infiltrates and some consolidative changes, left more than right on the CAT scan superimposed on underlying bilateral emphysema and questionable honeycombing appearance in the left lower lobe. Possibility of noninfectious etiology of her clinical presentation and radiologic findings cannot be discarded as well as the patient's procalcitonin is less than 0.05. I will proceed with rheumatologic screen and low-dose steroids at present time as well as echo. CRP is pending. I have low suspicion for pulmonary tuberculosis as procalcitonin is low and there is no lymphadenopathy reported on the CAT scan even though it was done without IV contrast and may not be very sensitive; however, we will put the patient on airborne isolation and obtain AFB x 3 smear of her sputum. That was discussed with Dr. Berman. I will proceed with bronchodilators/steroid taper/abx for her COPD flare/CAP. She does have some signs of bronchospasm. She will be on vanco/ceftriaxone/zithro. Based on presentation, PCP or pulmonary invasive aspergillosis is unlikely (no hypoxemia , no GGO, no severe respiratory insufficiency). Cryptococcal antigen in the cerebrospinal fluid is negative. Herpes simplex virus PCR is pending. The patient was started on empiric acyclovir by primary team. We will send sputum for culture as well. I will also order echocardiogram. We will continue with conservative fluid and oxygen management. The patient will be on low-dose steroids. That was discussed with Dr. Brumfield as well who agreed. Echocardiogram will be ordered. ccm time 40 min Rip Castillo MD [facility]
[2017-11-02] MEDS: Arformoterol 15 mcg/2 ml Inh Sol IH SCH (19:58)
[2017-11-02] MEDS: Budesonide 0.5 mg/2 ml Inhal Susp UD IH SCH (19:59)
--- NOTE | 2017-11-02 20:01 | CP.PCM.PN ---
<Levon Chamberlain - Last Filed: 11/02/17 19:55> Subjective - Date & Time of Evaluation Date of Evaluation: 11/02/17 Time of Evaluation: 10:15 - Subjective Subjective: Levon Chamberlain DO PGY-1, General Manager [employer] [facility] Progress Note Pt seen and examined at bedside this am. AAOx3, aware of what had brought her to the ED yesterday, mental status improving. Pt c/o cough w/ greenish/ yellowish sputum, some shortness of breath, and feeling tired/fatigued. 12- point ROS obtained, otherwise neg as per pt. Objective - Vital Signs/Intake and Output Vital Signs (last 24 hours): Temp Pulse Resp BP Pulse Ox 98.9 F 20 L 96 H 92/60 L 101 H 11/02/17 14:00 11/02/17 14:00 11/02/17 14:00 11/02/17 18:27 11/02/17 14:00 - Medications Medications: Current Medications Albuterol/Ipratropium (Duoneb 3 Mg/0.5 Mg (3 Ml) Ud) 3 ml IH [id number] PRN PRN Reason: Wheezing Amitriptyline HCl (Elavil) 100 mg PO DAILY [facility] Last Admin: 11/02/17 09:33 Dose: Not Given Arformoterol Tartrate (Brovana) 15 mcg IH [id number] KARYN Budesonide (Pulmicort Respules) 0.5 mg IH [id number] KARYN Bupropion HCl (Wellbutrin Sr 150 Mg) 150 mg PO DAILY KARYN Last Admin: 11/02/17 11:31 Dose: 150 mg Clonidine HCl (Catapres) 0.3 mg PO TID KARYN Last Admin: 11/02/17 18:27 Dose: Not Given Emtricitabine/Tenofovir (Truvada 200 Mg-300 Mg) 1 tab PO DAILY KARYN PRN Reason: Protocol Last Admin: 11/02/17 11:32 Dose: 1 tab Heparin Sodium (Porcine) (Heparin) 5,000 units SC Q8 KARYN PRN Reason: Protocol Last Admin: 11/02/17 14:00 Dose: Not Given Acyclovir 635 mg/ Sodium (Chloride) 100 mls @ 100 mls/hr IV Q8 KARYN PRN Reason: Protocol Last Admin: 11/02/17 18:23 Dose: 100 mls/hr Azithromycin (Zithromax 500mg In Ns) 500 mg in 250 mls @ 167 mls/hr IVPB DAILY [facility] PRN Reason: Protocol Last Admin: 11/02/17 09:37 Dose: 167 mls/hr Trimethoprim/Sulfamethoxazole (254 mg/ Dextrose) 500 mls @ 250 mls/hr IVPB Q12 [facility] Last Admin: 11/02/17 09:34 Dose: 250 mls/hr Dextrose/Sodium Chloride (Dextrose 5%/0.9% Ns 1000 Ml) 1,000 mls @ 70 mls/hr IV .[id number] [facility] Last Admin: 11/02/17 05:17 Dose: 70 mls/hr Ceftriaxone Sodium (Rocephin 2 Gm Ivpb) 2 gm in 100 mls @ 100 mls/hr IVPB Q12 [facility] PRN Reason: Protocol Vancomycin HCl (Vancomycin 1gm) 1 gm in 250 mls @ 167 mls/hr IVPB Q12H [facility] PRN Reason: Protocol Last Admin: 11/02/17 14:00 Dose: Not Given Ibuprofen (Motrin Tab) 800 mg PO TID PRN PRN Reason: Pain, moderate (4-7) Megestrol Acetate (Megace) 400 mg PO DAILY [facility] Last Admin: 11/02/17 09:34 Dose: Not Given Methylprednisolone (Solu-Medrol) 40 mg IVP Q8H [facility] Last Admin: 11/02/17 14:00 Dose: Not Given Pantoprazole Sodium (Protonix Inj) 40 mg IVP DAILY [facility] Last Admin: 11/02/17 11:31 Dose: 40 mg Raltegravir (Isentress) 400 mg PO BID [facility] PRN Reason: Protocol Last Admin: 11/02/17 18:27 Dose: 400 mg - Labs Labs: 11/02/17 06:18 11/02/17 06:18 - Constitutional Appears: Non-toxic, No Acute Distress, Chronically Ill - Head Exam Head Exam: ATRAUMATIC, NORMAL INSPECTION - Eye Exam Eye Exam: EOMI, Normal appearance, PERRL - ENT Exam ENT Exam: Mucous Membranes Moist - Respiratory Exam Additional comments: Crackles in L upper lobe, Wheezes auscultated b/l in all lung acevedo - Cardiovascular Exam Cardiovascular Exam: REGULAR RHYTHM, +S1, +S2 - GI/Abdominal Exam GI & Abdominal Exam: Soft, Normal Bowel Sounds. absent: Tenderness - Extremities Exam Extremities Exam: Full ROM, Normal Capillary Refill, Normal Inspection - Neurological Exam Neurological Exam: Alert, Awake, CN II-XII Intact, Oriented x3 - Skin Skin Exam: Dry, Intact, Warm Assessment and Plan - Assessment and Plan (Free Text) Assessment: 62 y o female PMhx HIV on Truvada, emphysema, and pulmonary fibrosis, who presented to the ED with a 2 day hx of AMS. Found on CXR to have L upper lobe interstitial infiltrate and minimal interstitial infiltrate in R lower lobe. Head CT neg for acute changes. Lumbar puncture done in ED, fluid studies pending. ID (Octaviano), Pulm (Jonathan) consulted. Plan: AMS -Head CT neg for acute changes -Likely 2/2 chronic HIV, r/o meningitis, encephalitis -Lumbar puncture done in ED, fluid studies pending -Neuro checks q 4 h -Pending MRI w/o contrast Pneumonia -R/o atypical etiologies due to HIV status -CXR findings as described in assessment -CT chest: diffuse IS infiltrate/pulmonary fibrosis in the left upper lobe. There is more focal area of consolidation/scarrying and volume loss in the superior segment of the left lower lobe. There are also some bulla contiguous with the consolidation. There is also evidence of emphysema in both upper lobes. -Sputum, blood, urine cxs pending -S/p 1x vancomycin -2 g rocephin IVPB bid -Zithromax -Bactrim -Pending ESR, CRP, Cryptococcal Ag neg, HSV -ID consulted, recs appreciated -Passed swallow eval, resumed diet -f/u Quantiferon, Trol-H-Vuxlol, CD4/CD8, Viral Load, LDH, VDRL, AFB cx -F/u echo -Pt placed on medical isolation Hx pulm fibrosis/emphysema -Pulm consulted, recs appreciated -Bronchodilators as per pulm, low-dose steroids Hx HIV -C/w truvada, isentress DVT/GI ppx: SCDs/Protonix Pt seen, examined with, and plan d/w Dr. Sawyer, attending. <Giorgi Sawyer - Last Filed: 11/04/17 15:29> Objective - Vital Signs/Intake and Output Vital Signs (last 24 hours): Temp Pulse Resp BP Pulse Ox 98.1 F 93 H 16 123/70 94 L 11/04/17 06:00 11/04/17 09:27 11/04/17 06:00 11/04/17 09:27 11/04/17 06:00 Intake and Output: 11/04/17 11/04/17 06:59 18:59 Output Total 1000 Balance -1000 - Medications Medications: Current Medications Albuterol/Ipratropium (Duoneb 3 Mg/0.5 Mg (3 Ml) Ud) 3 ml IH [id number] PRN PRN Reason: Wheezing Amitriptyline HCl (Elavil) 100 mg PO DAILY [facility] Last Admin: 11/04/17 09:30 Dose: 100 mg Arformoterol Tartrate (Brovana) 15 mcg IH [id number] [facility] Last Admin: 11/04/17 07:35 Dose: 15 mcg Aspirin (Aspirin Chewable) 81 mg PO DAILY [facility] Atorvastatin Calcium (Lipitor) 40 mg PO DIN [facility] Budesonide (Pulmicort Respules) 0.5 mg IH [id number] [facility] Last Admin: 11/04/17 07:35 Dose: 0.5 mg Bupropion HCl (Wellbutrin Sr 150 Mg) 150 mg PO DAILY [facility] Last Admin: 11/04/17 09:33 Dose: 150 mg Clonidine HCl (Catapres) 0.3 mg PO TID [facility] Last Admin: 11/04/17 09:27 Dose: 0.3 mg Emtricitabine/Tenofovir (Truvada 200 Mg-300 Mg) 1 tab PO DAILY KARYN PRN Reason: Protocol Last Admin: 11/04/17 09:29 Dose: 1 tab Heparin Sodium (Porcine) (Heparin) 5,000 units SC Q8 KARYN PRN Reason: Protocol Last Admin: 11/04/17 13:40 Dose: 5,000 units Acyclovir 635 mg/ Sodium (Chloride) 100 mls @ 100 mls/hr IV Q8 KARYN PRN Reason: Protocol Last Admin: 11/04/17 14:00 Dose: 100 mls/hr Ceftriaxone Sodium (Rocephin 2 Gm Ivpb) 2 gm in 100 mls @ 100 mls/hr IVPB 0000, 1200 KARYN PRN Reason: Protocol Last Admin: 11/04/17 11:35 Dose: 100 mls/hr Azithromycin (Zithromax 500mg In Ns) 500 mg in 250 mls @ 167 mls/hr IVPB DAILY KARYN PRN Reason: Protocol Last Admin: 11/04/17 09:32 Dose: 167 mls/hr Trimethoprim/Sulfamethoxazole (300 mg/ Dextrose) 500 mls @ 250 mls/hr IVPB Q8 KARYN PRN Reason: Protocol Ibuprofen (Motrin Tab) 800 mg PO TID PRN PRN Reason: Pain, moderate (4-7) Megestrol Acetate (Megace) 400 mg PO DAILY [facility]ARYN Last Admin: 11/04/17 09:30 Dose: 400 mg Methylprednisolone (Solu-Medrol) 40 mg IVP Q8H [facility]ARYN Last Admin: 11/04/17 13:40 Dose: 40 mg Pantoprazole Sodium (Protonix Inj) 40 mg IVP DAILY [facility]ARYN Last Admin: 11/04/17 09:30 Dose: 40 mg Raltegravir (Isentress) 400 mg PO BID KARYN PRN Reason: Protocol Last Admin: 11/04/17 09:30 Dose: 400 mg - Labs Labs: 11/04/17 07:00 11/04/17 07:00 Attending/Attestation - Attestation I have personally seen and examined this patient.: Yes I have fully participated in the care of the patient.: Yes I have reviewed all pertinent clinical information, including history, physical exam and plan: Yes Notes (Text): 11/04/17 15:29 Medical record note made by the resident after discussion with my direction and input after the patient was personally seen and examined by me. I have reviewed the chart and agree that the record accurately reflects by personal performance of the history, physical exam, data review, and medical decision-making, in the course for the patient. I have also personally directed the plan of care.
[2017-11-03] MEDS: Vancomycin 1gm in NS 250ml 1 GM/250 ML BAG IVPB SCH ×2 (02:59→15:05)
[2017-11-03] MEDS: ACYCLOVIR IV SCH ×3 (05:55→21:17)
[2017-11-03] MEDS: SODIUM CHLORIDE 0.9% IV SCH ×3 (05:55→21:17)
[2017-11-03] MEDS: MethylPREDNISolone 40 mg Vial IVP SCH ×3 (05:55→21:18)
[2017-11-03] MEDS: Arformoterol 15 mcg/2 ml Inh Sol IH SCH ×2 (07:52→20:07)
[2017-11-03] MEDS: Budesonide 0.5 mg/2 ml Inhal Susp UD IH SCH ×2 (07:53→20:07)
[2017-11-03 08:33] LABS: GRAN # 5.66 (1.4-6.5); GRAN % 90.6 % (50.0-68.0); HEMOGLOBIN 12.8 g/dL (12.0-16.0); LYMPH # 0.5 (1.2-3.4); LYMPH % 7.5 % (22.0-35.0); MEAN CELL VOLUME 95.5 fl (80.0-105.0); MEAN CORPUSCULAR HEMOGLOBIN 30.3 pg (25.0-35.0); MEAN CORPUSCULAR HGB CONC 31.8 g/dl (31.0-37.0); MEAN PLATELET VOLUME 9.5 fl (7.0-11.0); MONO # 0.1 (0.1-0.6); MONO % 1.9 % (1.0-6.0); PLATELET COUNT 162 10^3/uL (120.0-450.0); RBC 4.22 10^6/uL (3.5-6.1); RED CELL DISTRIBUTION WIDTH 14.9 % (11.5-14.5); WHITE BLOOD COUNT 6.3 10^3/ul (4.5-11.0)
[2017-11-03 08:38] LABS: ALB/GLOB RATIO 0.6 (1.1-1.8); ALBUMIN 2.7 g/dL (3.0-4.8); ALT/SGPT 25 U/L (7-56); AST/SGOT 26 U/L (14-36); BLOOD UREA NITROGEN 10 mg/dL (7-21); CALCIUM 7.7 mg/dL (8.4-10.5); GFR NON-AFRICAN AMERICAN > 60
[2017-11-03 09:02] LABS: ANISOCYTOSIS SLIGHT; LYMPHOCYTE 4 % (22.0-35.0); MONOCYTE 1 % (1.0-6.0); NEUTROPHIL 95 % (50.0-70.0)
[2017-11-03] MEDS: Megestrol Acetate 40 mg/ml Cup PO SCH (10:19)
[2017-11-03] MEDS: Emtricitabine-Tenofovir 200 mg-300 mg Tab PO SCH (10:21)
[2017-11-03] MEDS: buPROPion SR 150 MG TABLET PO SCH (10:22)
[2017-11-03] MEDS: SULFAMETHOXAZOLE IVPB SCH (10:56)
[2017-11-03] MEDS: WATER IVPB SCH (10:56)
[2017-11-03] MEDS: DEXTROSE 5% IVPB SCH (10:56)
[2017-11-03] MEDS: TRIMETHOPRIM IVPB SCH (10:56)
--- NOTE | 2017-11-03 12:50 | CARD ---
APPROVED REPORT Date of service: 11/03/2017 EXAM: Two-dimensional and M-mode echocardiogram with Doppler and color Doppler. INDICATION CHF 2D DIMENSIONS Left Atrium (2D)3.3 (1.6-4.0cm)IVSd0.9 (0.7-1.1cm) LVDd4.8 (3.9-5.9cm)PWd1.0 (0.7-1.1cm) LVDs3.1 (2.5-4.0cm)FS (%) 35.8 % LVEF (%)65.4 (>50%) M-Mode DIMENSIONS Aortic Root2.60 (2.2-3.7cm)Aortic Cusp Exc.2.00 (1.5-2.0cm) Aortic Valve AoV Peak Ptgergfv437.0cm/Curly Peak GR.12mmHg Mitral Valve MV E Onhgfosj99.6cm/sMV A Kvlclhzp35.7cm/sE/A ratio0.7 TDI Lateral E' Peak V14.80cm/sMedial E' Peak V7.99cm/sE/Lateral E'4.4 E/Medial E'8.2 Tricuspid Valve TR Peak [id number]/sRAP [id number] Peak Gr.66mmHg [id number] LEFT VENTRICLE The left ventricle is normal size. There is normal left ventricular wall thickness. The left ventricular function is normal. The left ventricular ejection fraction is within the normal range. There is normal LV segmental wall motion. Transmitral Doppler flow pattern is Grade I-abnormal relaxation pattern. RIGHT VENTRICLE The right ventricle is mildly dilated. There is normal right ventricular wall thickness. RV Systolic function is moderately reduced. ATRIA The left atrium size is normal. The right atrium is moderately dilated. AORTIC VALVE The aortic valve is normal in structure. No aortic regurgitation is present. There is no aortic valvular stenosis. MITRAL VALVE The mitral valve is normal in structure. Mitral regurgitation is trace to mild. There is no mitral valve stenosis. TRICUSPID VALVE The tricuspid valve is normal in structure. There is severe tricuspid regurgitation. There is severe pulmonary hypertension. GREAT VESSELS The aortic root is normal in size. The IVC is normal in size and collapses >50% with inspiration. PERICARDIAL EFFUSION There is a trace circumferential pericardial effusion. <Conclusion> The left ventricle is normal size. There is normal left ventricular wall thickness. The left ventricular function is normal. The left ventricular ejection fraction is within the normal range. There is normal LV segmental wall motion. Transmitral Doppler flow pattern is Grade I-abnormal relaxation pattern. The right ventricle is mildly dilated. RV Systolic function is moderately reduced. Mitral regurgitation is trace to mild. There is severe tricuspid regurgitation. There is severe pulmonary hypertension. There is a trace circumferential pericardial effusion.
[2017-11-03] MEDS: cefTRIAXone 2 GM IN NS 2 GM/100 ML BAG IVPB SCH ×2 (13:08→23:55)
--- NOTE | 2017-11-03 13:36 | PN ---
DATE: 11/03/2017 PULMONARY NOTE SUBJECTIVE: The patient is resting in bed on room air with occasional cough and phlegm. She states that she feels a little better when she had the oxygen on, but right now she is comfortable without it. She states that the bronchodilator nebulizer treatment does not help that much. No nauseousness or vomiting, and no chest pain at this time. She does say when she gets up and moves around, she does get significantly short of breath. PHYSICAL EXAMINATION: VITAL SIGNS: Her temperature is 98.1, her pulse is 100, respirations of 16, and BP is 106/71. SKIN: Warm and dry. HEENT: Head atraumatic, normocephalic. Eyes reactive to light. Ears, nose, and throat seem to be within normal limits. NECK: Supple. No JVD. No thyroid enlargement or lymph nodes. HEART: Regular rate and rhythm. Normal S1, S2 with tachycardic. LUNGS: Reveal bilateral rhonchi. ABDOMEN: Soft, nontender. Normal bowel sounds. GENITALIA: Deferred. RECTAL: Deferred. MUSCULOSKELETAL: No joint deformities. EXTREMITIES: Reveal no significant edema. NEUROLOGIC: She seems to be grossly intact. LABORATORY DATA: As far as her laboratories are concerned, her white count is 6.3, hemoglobin is 12.8, hematocrit 40.3 with platelets of 162,000. Her sodium is 135, potassium 4.9, chloride 102, CO2 of 31. BUN of 10, creatinine of 0.7. Glucose of 123. IMPRESSION: This patient has community-acquired pneumonia, but at this point, she is in isolation to rule out tuberculosis. The patient has chronic obstructive pulmonary disease as well as history of human immunodeficiency virus. PLAN: We will continue with the Aaron for bronchodilator. The patient is getting Protonix as well as Pulmicort, Rocephin, Solu-Medrol, vancomycin, and acyclovir. We will continue to treat aggressively along with the other consultants and the primary care doctor. Raman Gonzales MD
[2017-11-03] MEDS ORDERED: Azithromycin 500MG/NS 250ml 500 MG/250 ML BAG IVPB SCH (14:00)
[2017-11-03] MEDS: Azithromycin 500MG/NS 250ml 500 MG/250 ML BAG IVPB SCH ×2 (14:14→18:09)
--- NOTE | 2017-11-03 15:28 | CP.PCM.PN ---
Subjective - Date & Time of Evaluation Date of Evaluation: 11/03/17 Time of Evaluation: 14:40 - Subjective Subjective: Comfortable in bed, no fevers, no cough currently. Objective - Vital Signs/Intake and Output Vital Signs (last 24 hours): Temp Pulse Resp BP Pulse Ox 98.1 F 93 H 16 127/81 94 L 11/03/17 08:09 11/03/17 08:09 11/03/17 08:09 11/03/17 08:09 11/03/17 08:09 Intake and Output: 11/03/17 11/03/17 06:59 18:59 Intake Total 1790 Balance 1790 - Medications Medications: Current Medications Albuterol/Ipratropium (Duoneb 3 Mg/0.5 Mg (3 Ml) Ud) 3 ml IH [id number] PRN PRN Reason: Wheezing Amitriptyline HCl (Elavil) 100 mg PO DAILY [facility] Last Admin: 11/02/17 09:33 Dose: Not Given Arformoterol Tartrate (Brovana) 15 mcg IH [id number] [facility] Last Admin: 11/03/17 07:52 Dose: 15 mcg Budesonide (Pulmicort Respules) 0.5 mg IH [id number] [facility] Last Admin: 11/03/17 07:53 Dose: 0.5 mg Bupropion HCl (Wellbutrin Sr 150 Mg) 150 mg PO DAILY KARYN Last Admin: 11/02/17 11:31 Dose: 150 mg Clonidine HCl (Catapres) 0.3 mg PO TID KARYN Last Admin: 11/02/17 18:27 Dose: Not Given Emtricitabine/Tenofovir (Truvada 200 Mg-300 Mg) 1 tab PO DAILY [facility]ARYN PRN Reason: Protocol Last Admin: 11/02/17 11:32 Dose: 1 tab Heparin Sodium (Porcine) (Heparin) 5,000 units SC Q8 KARYN PRN Reason: Protocol Last Admin: 11/02/17 21:33 Dose: Not Given Acyclovir 635 mg/ Sodium (Chloride) 100 mls @ 100 mls/hr IV Q8 AKRYN PRN Reason: Protocol Last Admin: 11/03/17 05:55 Dose: 100 mls/hr Azithromycin (Zithromax 500mg In Ns) 500 mg in 250 mls @ 167 mls/hr IVPB DAILY KARYN PRN Reason: Protocol Last Admin: 11/02/17 09:37 Dose: 167 mls/hr Trimethoprim/Sulfamethoxazole (254 mg/ Dextrose) 500 mls @ 250 mls/hr IVPB Q12 [facility] Last Admin: 11/02/17 22:32 Dose: 250 mls/hr Dextrose/Sodium Chloride (Dextrose 5%/0.9% Ns 1000 Ml) 1,000 mls @ 70 mls/hr IV [id number] [facility] Last Admin: 11/02/17 21:25 Dose: 70 mls/hr Vancomycin HCl (Vancomycin 1gm) 1 gm in 250 mls @ 167 mls/hr IVPB Q12H KARYN PRN Reason: Protocol Last Admin: 11/03/17 02:59 Dose: 167 mls/hr Ceftriaxone Sodium (Rocephin 2 Gm Ivpb) 2 gm in 100 mls @ 100 mls/hr IVPB 0000, 1200 KARYN PRN Reason: Protocol Ibuprofen (Motrin Tab) 800 mg PO TID PRN PRN Reason: Pain, moderate (4-7) Megestrol Acetate (Megace) 400 mg PO DAILY [facility] Last Admin: 11/02/17 09:34 Dose: Not Given Methylprednisolone (Solu-Medrol) 40 mg IVP Q8H [facility] Last Admin: 11/03/17 05:55 Dose: 40 mg Pantoprazole Sodium (Protonix Inj) 40 mg IVP DAILY [facility] Last Admin: 11/02/17 11:31 Dose: 40 mg Raltegravir (Isentress) 400 mg PO BID [facility] PRN Reason: Protocol Last Admin: 11/02/17 18:27 Dose: 400 mg - Labs Labs: 11/02/17 06:18 11/02/17 06:18 - Constitutional Appears: Chronically Ill - Head Exam Head Exam: NORMAL INSPECTION - Neck Exam Neck Exam: absent: Meningismus - Respiratory Exam Respiratory Exam: Decreased Breath Sounds - Cardiovascular Exam Cardiovascular Exam: +S1, +S2 - GI/Abdominal Exam GI & Abdominal Exam: Soft. absent: Tenderness Assessment and Plan - Assessment and Plan (Free Text) Plan: Assessment sepsis from acute bacterial pneumonia, R/O PJP in this patient with chronic HIV infection, R/O TB acute meningitis R/O viral emphysema and pulmonary fibrosis Plan follow up final culture results follow up sputum AFB x 3 and Quantiferon TB test continue Rocephin, Zithromax and IV Bactrim will monitor clinically continue ART follow up final CSF work up results
--- NOTE | 2017-11-03 18:24 | CP.PCM.PN ---
<Carrington Churchill - Last Filed: 11/03/17 21:35> Subjective - Date & Time of Evaluation Date of Evaluation: 11/03/17 Time of Evaluation: 08:00 - Subjective Subjective: Pt seen and examined this morning. No new complaints at this time. Pt currently on TB contact precautions. Objective - Vital Signs/Intake and Output Vital Signs (last 24 hours): Temp Pulse Resp BP Pulse Ox 98.1 F 100 H 16 106/71 94 L 11/03/17 08:09 11/03/17 10:19 11/03/17 08:09 11/03/17 10:19 11/03/17 08:09 Intake and Output: 11/03/17 11/03/17 06:59 18:59 Intake Total 1790 Balance 1790 - Medications Medications: Current Medications Albuterol/Ipratropium (Duoneb 3 Mg/0.5 Mg (3 Ml) Ud) 3 ml IH [id number] PRN PRN Reason: Wheezing Amitriptyline HCl (Elavil) 100 mg PO DAILY [facility] Last Admin: 11/03/17 10:21 Dose: 100 mg Arformoterol Tartrate (Brovana) 15 mcg IH [id number] [facility] Last Admin: 11/03/17 07:52 Dose: 15 mcg Budesonide (Pulmicort Respules) 0.5 mg IH [id number] [facility] Last Admin: 11/03/17 07:53 Dose: 0.5 mg Bupropion HCl (Wellbutrin Sr 150 Mg) 150 mg PO DAILY [facility] Last Admin: 11/03/17 10:22 Dose: 150 mg Clonidine HCl (Catapres) 0.3 mg PO TID [facility] Last Admin: 11/03/17 18:17 Dose: Not Given Emtricitabine/Tenofovir (Truvada 200 Mg-300 Mg) 1 tab PO DAILY [facility] PRN Reason: Protocol Last Admin: 11/03/17 10:21 Dose: 1 tab Heparin Sodium (Porcine) (Heparin) 5,000 units SC Q8 [facility] PRN Reason: Protocol Last Admin: 11/03/17 13:09 Dose: Not Given Acyclovir 635 mg/ Sodium (Chloride) 100 mls @ 100 mls/hr IV Q8 [facility] PRN Reason: Protocol Last Admin: 11/03/17 14:11 Dose: 100 mls/hr Ceftriaxone Sodium (Rocephin 2 Gm Ivpb) 2 gm in 100 mls @ 100 mls/hr IVPB 0000, 1200 [facility] PRN Reason: Protocol Last Admin: 11/03/17 13:08 Dose: 100 mls/hr Azithromycin (Zithromax 500mg In Ns) 500 mg in 250 mls @ 167 mls/hr IVPB DAILY [facility] PRN Reason: Protocol Last Admin: 11/03/17 18:09 Dose: 167 mls/hr Trimethoprim/Sulfamethoxazole (254 mg/ Dextrose) 500 mls @ 250 mls/hr IVPB Q12 [facility] Ibuprofen (Motrin Tab) 800 mg PO TID PRN PRN Reason: Pain, moderate (4-7) Megestrol Acetate (Megace) 400 mg PO DAILY [facility] Last Admin: 11/03/17 10:19 Dose: 400 mg Methylprednisolone (Solu-Medrol) 40 mg IVP Q8H [facility] Last Admin: 11/03/17 13:08 Dose: 40 mg Pantoprazole Sodium (Protonix Inj) 40 mg IVP DAILY [facility] Last Admin: 11/03/17 10:15 Dose: 40 mg Raltegravir (Isentress) 400 mg PO BID [facility] PRN Reason: Protocol Last Admin: 11/03/17 18:10 Dose: 400 mg - Labs Labs: 11/03/17 08:00 11/03/17 08:00 - Constitutional Appears: No Acute Distress - Head Exam Head Exam: ATRAUMATIC - Eye Exam Eye Exam: EOMI - ENT Exam ENT Exam: Mucous Membranes Moist - Neck Exam Neck Exam: Full ROM - Respiratory Exam Respiratory Exam: Wheezes, NORMAL BREATHING PATTERN - Cardiovascular Exam Cardiovascular Exam: RRR, +S1, +S2 - GI/Abdominal Exam GI & Abdominal Exam: Soft - Extremities Exam Extremities Exam: Full ROM - Neurological Exam Neurological Exam: Alert, Awake - Skin Skin Exam: Dry, Normal Color, Warm Assessment and Plan - Assessment and Plan (Free Text) Assessment: Pt is a 62 yo female with a PMH of HIV, emphysema, and pulmonary fibrosis, who presented to the ED with 2 days of AMS Plan: Pneumonia - ID: AFB x 3 and quantiferon TB test; continue Rocephin, Zithromax, and IV Bactrim - Cryptococcal Ag neg - CSF Cultures: no growth 24 hours - Blood cultures: no growth 48 hours - ECHO: 65% EF, Severe Tricuspid regurgitation, Severe Pulmonary Hypertension - HSV pending, if negative will discontinue Acyclovir - urine cultures: multiple species, needs repeat specimen - ESR, CRP, [id number], sputum cultures, CD4/CD8, Viral Load ordered - LDH pending - VDRL pending AMS - Head CT negative for acute changes - LP: shows no evidence of meningitis - MRI: waiting for official read - continue Neuro checks Pulm fibrosis -Pulm: continue Brovana and steroids HIV - continue truvada - continue isentress Pt seen, examined, assessment and plan discussed with Dr. Silverio Churchill PGY1, Internal Medicine Resident <Giorgi Sawyer - Last Filed: 11/04/17 14:16> Objective - Vital Signs/Intake and Output Vital Signs (last 24 hours): Temp Pulse Resp BP Pulse Ox 98.1 F 93 H 16 123/70 94 L 11/04/17 06:00 11/04/17 09:27 11/04/17 06:00 11/04/17 09:27 11/04/17 06:00 Intake and Output: 11/04/17 11/04/17 06:59 18:59 Output Total 1000 Balance -1000 - Medications Medications: Current Medications Albuterol/Ipratropium (Duoneb 3 Mg/0.5 Mg (3 Ml) Ud) 3 ml IH [id number] PRN PRN Reason: Wheezing Amitriptyline HCl (Elavil) 100 mg PO DAILY [facility] Last Admin: 11/04/17 09:30 Dose: 100 mg Arformoterol Tartrate (Brovana) 15 mcg IH [id number] [facility] Last Admin: 11/04/17 07:35 Dose: 15 mcg Aspirin (Aspirin Chewable) 81 mg PO DAILY [facility] Atorvastatin Calcium (Lipitor) 40 mg PO DIN [facility] Budesonide (Pulmicort Respules) 0.5 mg IH [id number] [facility] Last Admin: 11/04/17 07:35 Dose: 0.5 mg Bupropion HCl (Wellbutrin Sr 150 Mg) 150 mg PO DAILY [facility] Last Admin: 11/04/17 09:33 Dose: 150 mg Clonidine HCl (Catapres) 0.3 mg PO TID [facility] Last Admin: 11/04/17 09:27 Dose: 0.3 mg Emtricitabine/Tenofovir (Truvada 200 Mg-300 Mg) 1 tab PO DAILY [facility] PRN Reason: Protocol Last Admin: 11/04/17 09:29 Dose: 1 tab Heparin Sodium (Porcine) (Heparin) 5,000 units SC Q8 [facility] PRN Reason: Protocol Last Admin: 11/04/17 13:40 Dose: 5,000 units Acyclovir 635 mg/ Sodium (Chloride) 100 mls @ 100 mls/hr IV Q8 [facility] PRN Reason: Protocol Last Admin: 11/04/17 05:02 Dose: 100 mls/hr Ceftriaxone Sodium (Rocephin 2 Gm Ivpb) 2 gm in 100 mls @ 100 mls/hr IVPB 0000, 1200 [facility] PRN Reason: Protocol Last Admin: 11/04/17 11:35 Dose: 100 mls/hr Azithromycin (Zithromax 500mg In Ns) 500 mg in 250 mls @ 167 mls/hr IVPB DAILY [facility] PRN Reason: Protocol Last Admin: 11/04/17 09:32 Dose: 167 mls/hr Trimethoprim/Sulfamethoxazole (300 mg/ Dextrose) 500 mls @ 250 mls/hr IVPB Q8 [facility] PRN Reason: Protocol Ibuprofen (Motrin Tab) 800 mg PO TID PRN PRN Reason: Pain, moderate (4-7) Megestrol Acetate (Megace) 400 mg PO DAILY [facility] Last Admin: 11/04/17 09:30 Dose: 400 mg Methylprednisolone (Solu-Medrol) 40 mg IVP Q8H [facility] Last Admin: 11/04/17 13:40 Dose: 40 mg Pantoprazole Sodium (Protonix Inj) 40 mg IVP DAILY [facility] Last Admin: 11/04/17 09:30 Dose: 40 mg Raltegravir (Isentress) 400 mg PO BID [facility] PRN Reason: Protocol Last Admin: 11/04/17 09:30 Dose: 400 mg - Labs Labs: 11/04/17 07:00 11/04/17 07:00 Attending/Attestation - Attestation I have personally seen and examined this patient.: Yes I have fully participated in the care of the patient.: Yes I have reviewed all pertinent clinical information, including history, physical exam and plan: Yes Notes (Text): 11/04/17 14:10 Medical record note made by the resident after discussion with my direction and input after the patient was personally seen and examined by me. I have reviewed the chart and agree that the record accurately reflects by personal performance of the history, physical exam, data review, and medical decision-making, in the course for the patient. I have also personally directed the plan of care. 62 yrs old female with PMH of HIV on Truvada, emphysema, and pulmonary fibrosis , who presented to the ED with H/O change of mental status,CT heas was negative.She is . found on CXR to have L upper lobe interstitial infiltrate and minimal interstitial infiltrate in R lower lobe. Lumbar puncture done in ED, fluid studies Meningitis,CSF HSV results are pending.Patient is on Resp Isolation to rule out TB, currently on treatment for CAP and possible pending. She is also on IV steroid for PF and possible PJP. Patient mental status is back to normal. We will follow up MRI of Brain and Echo. Management plan was discussed in detail with patient. Education was provided.
[2017-11-03] MEDS ORDERED: WATER IVPB SCH (22:00)
[2017-11-03] MEDS ORDERED: TRIMETHOPRIM IVPB SCH (22:00)
[2017-11-03] MEDS ORDERED: DEXTROSE 5% IVPB SCH (22:00)
[2017-11-03] MEDS ORDERED: SULFAMETHOXAZOLE IVPB SCH (22:00)
[2017-11-04] MEDS: SODIUM CHLORIDE 0.9% IV SCH ×3 (05:02→21:04)
[2017-11-04] MEDS: ACYCLOVIR IV SCH ×3 (05:02→21:04)
[2017-11-04] MEDS: MethylPREDNISolone 40 mg Vial IVP SCH ×3 (05:02→21:05)
[2017-11-04] MEDS: Budesonide 0.5 mg/2 ml Inhal Susp UD IH SCH ×2 (07:35→19:42)
[2017-11-04] MEDS: Arformoterol 15 mcg/2 ml Inh Sol IH SCH ×2 (07:35→19:43)
[2017-11-04 07:53] LABS: BASO # 0.01 K/mm3 (0.0-2.0); BASO % 0.1 % (0.0-3.0); GRAN # 7.36 (1.4-6.5); GRAN % 88.4 % (50.0-68.0); LYMPH # 0.7 (1.2-3.4); LYMPH % 8.7 % (22.0-35.0); MEAN CELL VOLUME 94.7 fl (80.0-105.0); MEAN CORPUSCULAR HGB CONC 31.7 g/dl (31.0-37.0); MEAN PLATELET VOLUME 9.9 fl (7.0-11.0); MONO # 0.2 (0.1-0.6); MONO % 2.8 % (1.0-6.0); RBC 4.33 10^6/uL (3.5-6.1); WHITE BLOOD COUNT 8.3 10^3/ul (4.5-11.0)
[2017-11-04 08:10] LABS: ALB/GLOB RATIO 0.6 (1.1-1.8); ALBUMIN 2.6 g/dL (3.0-4.8); ALT/SGPT 23 U/L (7-56); AST/SGOT 21 U/L (14-36); BLOOD UREA NITROGEN 14 mg/dL (7-21); CALCIUM 7.8 mg/dL (8.4-10.5); GFR NON-AFRICAN AMERICAN > 60
[2017-11-04] MEDS: Emtricitabine-Tenofovir 200 mg-300 mg Tab PO SCH (09:29)
[2017-11-04] MEDS: Megestrol Acetate 40 mg/ml Cup PO SCH (09:30)
[2017-11-04] MEDS: Azithromycin 500MG/NS 250ml 500 MG/250 ML BAG IVPB SCH (09:32)
[2017-11-04] MEDS: buPROPion SR 150 MG TABLET PO SCH (09:33)
--- NOTE | 2017-11-04 09:35 | MRI ---
Date of service: 11/03/2017 PROCEDURE: MRI BRAIN WITHOUT CONTRAST HISTORY: AMS, hx HIV COMPARISON: None available. TECHNIQUE: Multiplanar, multisequence MR images of the brain were obtained without intravenous contrast enhancement. FINDINGS: HEMORRHAGE: None DWI: There is a tiny acute subacute infarct at the right occipital lobe bilaterally. No lobar brain infarction appreciated throughout. BRAIN PARENCHYMA: Good corticomedullary differentiation is seen. Proportional, diffuse expansion of the ventriculosulcal and cisternal spaces is appreciated with white matter lucency compatible with diffuse cerebral atrophy and chronic microangiopathy. No suspicious extra-axial fluid collection is identified and the midline brain anatomy appears grossly nonfocal as imaged. There is no mass effect throughout. VENTRICLES: Unremarkable. No hydrocephalus. CRANIUM: Unremarkable. ORBITS: Grossly unremarkable. PARANASAL SINUSES/MASTOIDS: Clear VASCULAR SYSTEM: Skull base flow voids intact. OTHER FINDINGS: None. IMPRESSION: Punctate infarct right temporal lobe on the order of 3 mm size based on diffusion-weighted imaging. No lobar brain infarction identified. Exam otherwise reflects age-appropriate age related neuro degenerative changes.
[2017-11-04] MEDS: cefTRIAXone 2 GM IN NS 2 GM/100 ML BAG IVPB SCH ×2 (11:35→23:07)
[2017-11-04 12:00] LABS: % CD4 (T HELPER CELL) 20 Percent (30-61); % CD8 (SUPPRESSOR T CELL) 55 Percent (12-42); ABSOLUTE CD4 CELLS 164 Cells/mcL (490-1740); ABSOLUTE CD8 CELLS 441 Cells/mcL (180-1170); ABSOLUTE LYMPHOCYTES 803 Cells/mcL (850-3900); HELPER/SUPPRESSOR RATIO 0.37 Ratio (0.86-5.00)
--- NOTE | 2017-11-04 12:12 | CP.PCM.PN ---
Subjective - Date & Time of Evaluation Date of Evaluation: 11/04/17 Time of Evaluation: 11:30 - Subjective Subjective: No fevers, with cough but having difficulty expectorating, no nausea, no headache, no dizziness. Objective - Vital Signs/Intake and Output Vital Signs (last 24 hours): Temp Pulse Resp BP Pulse Ox 98.1 F 100 H 16 106/71 94 L 11/03/17 08:09 11/03/17 10:19 11/03/17 08:09 11/03/17 10:19 11/03/17 08:09 Intake and Output: 11/03/17 11/03/17 06:59 18:59 Intake Total 1790 Balance 1790 - Medications Medications: Current Medications Albuterol/Ipratropium (Duoneb 3 Mg/0.5 Mg (3 Ml) Ud) 3 ml IH [id number] PRN PRN Reason: Wheezing Amitriptyline HCl (Elavil) 100 mg PO DAILY [facility] Last Admin: 11/03/17 10:21 Dose: 100 mg Arformoterol Tartrate (Brovana) 15 mcg IH [id number] [facility] Last Admin: 11/03/17 07:52 Dose: 15 mcg Budesonide (Pulmicort Respules) 0.5 mg IH [id number] [facility] Last Admin: 11/03/17 07:53 Dose: 0.5 mg Bupropion HCl (Wellbutrin Sr 150 Mg) 150 mg PO DAILY [facility] Last Admin: 11/03/17 10:22 Dose: 150 mg Clonidine HCl (Catapres) 0.3 mg PO TID [facility] Last Admin: 11/03/17 13:09 Dose: Not Given Emtricitabine/Tenofovir (Truvada 200 Mg-300 Mg) 1 tab PO DAILY [facility] PRN Reason: Protocol Last Admin: 11/03/17 10:21 Dose: 1 tab Heparin Sodium (Porcine) (Heparin) 5,000 units SC Q8 [facility] PRN Reason: Protocol Last Admin: 11/03/17 13:09 Dose: Not Given Acyclovir 635 mg/ Sodium (Chloride) 100 mls @ 100 mls/hr IV Q8 [facility] PRN Reason: Protocol Last Admin: 11/03/17 14:11 Dose: 100 mls/hr Ceftriaxone Sodium (Rocephin 2 Gm Ivpb) 2 gm in 100 mls @ 100 mls/hr IVPB 0000, 1200 [facility] PRN Reason: Protocol Last Admin: 11/03/17 13:08 Dose: 100 mls/hr Azithromycin (Zithromax 500mg In Ns) 500 mg in 250 mls @ 167 mls/hr IVPB DAILY [facility] PRN Reason: Protocol Ibuprofen (Motrin Tab) 800 mg PO TID PRN PRN Reason: Pain, moderate (4-7) Megestrol Acetate (Megace) 400 mg PO DAILY [facility] Last Admin: 11/03/17 10:19 Dose: 400 mg Methylprednisolone (Solu-Medrol) 40 mg IVP Q8H [facility] Last Admin: 11/03/17 13:08 Dose: 40 mg Pantoprazole Sodium (Protonix Inj) 40 mg IVP DAILY [facility] Last Admin: 11/03/17 10:15 Dose: 40 mg Raltegravir (Isentress) 400 mg PO BID [facility] PRN Reason: Protocol Last Admin: 11/03/17 10:21 Dose: 400 mg - Labs Labs: 11/03/17 08:00 11/03/17 08:00 - Constitutional Appears: Chronically Ill - Head Exam Head Exam: NORMAL INSPECTION - ENT Exam ENT Exam: Mucous Membranes Moist - Neck Exam Neck Exam: absent: Meningismus - Respiratory Exam Respiratory Exam: Decreased Breath Sounds - Cardiovascular Exam Cardiovascular Exam: +S1, +S2 - GI/Abdominal Exam GI & Abdominal Exam: Soft. absent: Tenderness Assessment and Plan - Assessment and Plan (Free Text) Plan: Assessment sepsis from acute bacterial pneumonia, R/O PJP in this patient with chronic HIV infection, R/O TB acute meningitis R/O viral emphysema and pulmonary fibrosis Plan follow up final culture results follow up sputum AFB x 3 and Quantiferon TB test continue Rocephin, Zithromax and IV Bactrim day 3 will continue to monitor clinically continue ART follow up final CSF work up results including HSV PCR; CSF crypt Ag is negative , pending CSF VDRL
[2017-11-04 12:25] LABS: HDL CHOLESTEROL 21 mg/dL (29-60)
[2017-11-04 12:35] LABS: LDL CHOLESTEROL 50 mg/dL (0-129)
[2017-11-04] MEDS: Sulfamethoxazole/Trimethoprim 300 MG in Dextrose 5% In Water 500 ML IVPB SCH ×2 (15:20→21:04)
--- NOTE | 2017-11-04 18:28 | CP.PCM.PN ---
<ZhaoCarringtoncourtney Calvo - Last Filed: 11/04/17 18:29> Subjective - Date & Time of Evaluation Date of Evaluation: 11/04/17 Time of Evaluation: 09:00 - Subjective Subjective: Pt seen and examined this morning. Pt reports having trouble producing a sputum sample. She continues to report cough. Objective - Vital Signs/Intake and Output Vital Signs (last 24 hours): Temp Pulse Resp BP Pulse Ox 98 F 90 16 113/76 94 L 11/04/17 16:26 11/04/17 16:26 11/04/17 16:26 11/04/17 16:26 11/04/17 16:26 Intake and Output: 11/04/17 11/04/17 06:59 18:59 Output Total 1000 Balance -1000 - Medications Medications: Current Medications Albuterol/Ipratropium (Duoneb 3 Mg/0.5 Mg (3 Ml) Ud) 3 ml IH [id number] PRN PRN Reason: Wheezing Amitriptyline HCl (Elavil) 100 mg PO DAILY [facility] Last Admin: 11/04/17 09:30 Dose: 100 mg Arformoterol Tartrate (Brovana) 15 mcg IH [id number] [facility] Last Admin: 11/04/17 07:35 Dose: 15 mcg Aspirin (Aspirin Chewable) 81 mg PO DAILY [facility] Atorvastatin Calcium (Lipitor) 40 mg PO DIN [facility] Last Admin: 11/04/17 18:05 Dose: 40 mg Budesonide (Pulmicort Respules) 0.5 mg IH [id number] [facility] Last Admin: 11/04/17 07:35 Dose: 0.5 mg Bupropion HCl (Wellbutrin Sr 150 Mg) 150 mg PO DAILY [facility] Last Admin: 11/04/17 09:33 Dose: 150 mg Clonidine HCl (Catapres) 0.3 mg PO TID [facility] Last Admin: 11/04/17 15:24 Dose: 0.3 mg Emtricitabine/Tenofovir (Truvada 200 Mg-300 Mg) 1 tab PO DAILY [facility] PRN Reason: Protocol Last Admin: 11/04/17 09:29 Dose: 1 tab Heparin Sodium (Porcine) (Heparin) 5,000 units SC Q8 [facility] PRN Reason: Protocol Last Admin: 11/04/17 13:40 Dose: 5,000 units Acyclovir 635 mg/ Sodium (Chloride) 100 mls @ 100 mls/hr IV Q8 [facility] PRN Reason: Protocol Last Admin: 11/04/17 14:00 Dose: 100 mls/hr Ceftriaxone Sodium (Rocephin 2 Gm Ivpb) 2 gm in 100 mls @ 100 mls/hr IVPB 0000, 1200 [facility] PRN Reason: Protocol Last Admin: 11/04/17 11:35 Dose: 100 mls/hr Azithromycin (Zithromax 500mg In Ns) 500 mg in 250 mls @ 167 mls/hr IVPB DAILY [facility] PRN Reason: Protocol Last Admin: 11/04/17 09:32 Dose: 167 mls/hr Trimethoprim/Sulfamethoxazole (300 mg/ Dextrose) 500 mls @ 250 mls/hr IVPB Q8 [facility] PRN Reason: Protocol Last Admin: 11/04/17 15:20 Dose: 250 mls/hr Ibuprofen (Motrin Tab) 800 mg PO TID PRN PRN Reason: Pain, moderate (4-7) Megestrol Acetate (Megace) 400 mg PO DAILY [facility] Last Admin: 11/04/17 09:30 Dose: 400 mg Methylprednisolone (Solu-Medrol) 40 mg IVP Q8H [facility] Last Admin: 11/04/17 13:40 Dose: 40 mg Pantoprazole Sodium (Protonix Inj) 40 mg IVP DAILY [facility] Last Admin: 11/04/17 09:30 Dose: 40 mg Raltegravir (Isentress) 400 mg PO BID [facility] PRN Reason: Protocol Last Admin: 11/04/17 18:05 Dose: 400 mg - Labs Labs: 11/04/17 07:00 11/04/17 07:00 - Constitutional Appears: No Acute Distress - Head Exam Head Exam: ATRAUMATIC, NORMOCEPHALIC - Respiratory Exam Respiratory Exam: Wheezes. absent: Accessory Muscle Use, Respiratory Distress, Stridor - Cardiovascular Exam Cardiovascular Exam: RRR, +S1, +S2 - GI/Abdominal Exam GI & Abdominal Exam: Soft, Normal Bowel Sounds. absent: Tenderness - Extremities Exam Extremities Exam: absent: Calf Tenderness, Pedal Edema - Neurological Exam Neurological Exam: Awake - Psychiatric Exam Psychiatric exam: Normal Affect, Normal Mood - Skin Skin Exam: Dry, Normal Color, Warm Assessment and Plan - Assessment and Plan (Free Text) Assessment: Pt is a 62 yo female with a PMH of HIV, emphysema, and pulmonary fibrosis, who presented to the ED with 2 days of AMS Plan: Pneumonia - Blood cultures: no growth 3 days - ID: continue Rocephin, Zithromax, and IV Bactrim day 3 - Pulm: pt has CAP, TB isolation due to HIV and COPD. - Cryptococcal Ag not detected - LDH, VDRL pending - AFB x 3 and quantiferon TB test pending - ESR, CRP, [id number], sputum cultures pending - CD4: 164 - CD8: 441 - Viral Load ordered AMS - MRI: punctate infarct right temporal lobe, 3mm in size - start pt on ASA, statin - Head CT negative for acute changes. LP: shows no evidence of meningitis - continue Neuro checks - ECHO: 65% EF, Severe Tricuspid regurgitation, Severe Pulmonary Hypertension - HSV pending, if negative will discontinue Acyclovir - urine cultures: multiple species, needs repeat specimen - CSF Cultures: no growth 2 days Pulm fibrosis -Pulm: Brovana and steroids HIV - continue truvada - continue reltegravir Pt seen, examined, assessment, plan discussed with Dr. Silverio Churchill PGY1 <Giorgi Sawyer - Last Filed: 11/12/17 16:58> Objective - Vital Signs/Intake and Output Vital Signs (last 24 hours): Temp Pulse Resp BP Pulse Ox 98.5 F 108 H 20 125/69 97 11/10/17 06:00 11/10/17 14:40 11/10/17 06:00 11/10/17 14:40 11/10/17 06:00 - Labs Labs: 11/10/17 07:00 11/10/17 07:00 Attending/Attestation - Attestation I have personally seen and examined this patient.: Yes I have fully participated in the care of the patient.: Yes I have reviewed all pertinent clinical information, including history, physical exam and plan: Yes Notes (Text): 11/12/17 16:56 62 y o female PMhx HIV on Truvada, emphysema, and pulmonary fibrosis, who presented to the ED with a 2 day hx of AMS. Found on CXR to have L upper lobe interstitial infiltrate and minimal interstitial infiltrate in R lower lobe. Head CT neg for acute changes. Lumbar puncture done in ED, fluid studies are negative for Meningitis, CSF HSV is pending,Patient is on Resp Isolation to rule out TB, currently on treatment for CAP and possible PJP. Brain MRI showed small infarct. Mental status is back to normal.
[2017-11-05] MEDS: Sulfamethoxazole/Trimethoprim 300 MG in Dextrose 5% In Water 500 ML IVPB SCH ×3 (05:21→21:48)
[2017-11-05] MEDS: Pantoprazole 40 mg EC Tab PO SCH (05:22)
[2017-11-05] MEDS: MethylPREDNISolone 40 mg Vial IVP SCH ×3 (05:22→22:01)
[2017-11-05 07:12] LABS: BASO # 0.01 K/mm3 (0.0-2.0); BASO % 0.1 % (0.0-3.0); GRAN # 6.91 (1.4-6.5); GRAN % 80.3 % (50.0-68.0); HEMOGLOBIN 13.9 g/dL (12.0-16.0); LYMPH # 1.3 (1.2-3.4); LYMPH % 14.8 % (22.0-35.0); MEAN CELL VOLUME 93.2 fl (80.0-105.0); MEAN CORPUSCULAR HEMOGLOBIN 30.3 pg (25.0-35.0); MEAN CORPUSCULAR HGB CONC 32.6 g/dl (31.0-37.0); MONO # 0.4 (0.1-0.6); MONO % 4.8 % (1.0-6.0); RBC 4.58 10^6/uL (3.5-6.1); RED CELL DISTRIBUTION WIDTH 14.8 % (11.5-14.5); WHITE BLOOD COUNT 8.6 10^3/ul (4.5-11.0)
[2017-11-05 07:36] LABS: ALB/GLOB RATIO 0.6 (1.1-1.8); ALBUMIN 2.7 g/dL (3.0-4.8); ALT/SGPT 19 U/L (7-56); AST/SGOT 18 U/L (14-36); BLOOD UREA NITROGEN 19 mg/dL (7-21); CALCIUM 8.2 mg/dL (8.4-10.5); GFR NON-AFRICAN AMERICAN > 60
[2017-11-05] MEDS: Arformoterol 15 mcg/2 ml Inh Sol IH SCH ×2 (07:41→20:35)
[2017-11-05] MEDS: Budesonide 0.5 mg/2 ml Inhal Susp UD IH SCH ×2 (07:42→20:35)
--- NOTE | 2017-11-05 07:42 | CP.PCM.PN ---
<Terry Stacyima - Last Filed: 11/05/17 12:34> Subjective - Date & Time of Evaluation Date of Evaluation: 11/05/17 Time of Evaluation: 07:42 - Subjective Subjective: [id number] ID Progress note for Dr. Brumfield Patient seen and examined at bedside. Nursing reported no acute events overnight. Patient was afebrile and in NAD this AM. Patient denied acute complaints of headache, dizziness, fever, chills, chest pain, palpitations, SOB , abd pain, nausea, vomiting, bowel/bladder complaints, pain/swelling in her legs b/l. Patient does admit to a nonproductive cough that she states is chronic. She is eager to go home and asking about discharge plan. Objective - Vital Signs/Intake and Output Vital Signs (last 24 hours): Temp Pulse Resp BP Pulse Ox 98.7 F 82 18 117/70 95 11/04/17 22:09 11/04/17 22:09 11/04/17 22:09 11/04/17 22:09 11/04/17 22:09 Intake and Output: 11/05/17 11/05/17 06:59 18:59 Output Total 480 Balance -480 - Medications Medications: Current Medications Albuterol/Ipratropium (Duoneb 3 Mg/0.5 Mg (3 Ml) Ud) 3 ml IH [id number] PRN PRN Reason: Wheezing Amitriptyline HCl (Elavil) 100 mg PO DAILY [facility] Last Admin: 11/04/17 09:30 Dose: 100 mg Arformoterol Tartrate (Brovana) 15 mcg IH [id number] [facility] Last Admin: 11/04/17 19:43 Dose: Not Given Aspirin (Aspirin Chewable) 81 mg PO DAILY [facility] Atorvastatin Calcium (Lipitor) 40 mg PO DIN [facility] Last Admin: 11/04/17 18:05 Dose: 40 mg Budesonide (Pulmicort Respules) 0.5 mg IH [id number] [facility] Last Admin: 11/04/17 19:42 Dose: Not Given Bupropion HCl (Wellbutrin Sr 150 Mg) 150 mg PO DAILY [facility] Last Admin: 11/04/17 09:33 Dose: 150 mg Clonidine HCl (Catapres) 0.3 mg PO TID [facility] Last Admin: 11/04/17 18:24 Dose: Not Given Emtricitabine/Tenofovir (Truvada 200 Mg-300 Mg) 1 tab PO DAILY [facility] PRN Reason: Protocol Last Admin: 11/04/17 09:29 Dose: 1 tab Heparin Sodium (Porcine) (Heparin) 5,000 units SC Q8 [facility] PRN Reason: Protocol Last Admin: 11/05/17 05:46 Dose: Not Given Ceftriaxone Sodium (Rocephin 2 Gm Ivpb) 2 gm in 100 mls @ 100 mls/hr IVPB 0000, 1200 [facility] PRN Reason: Protocol Last Admin: 11/04/17 23:07 Dose: 100 mls/hr Azithromycin (Zithromax 500mg In Ns) 500 mg in 250 mls @ 167 mls/hr IVPB DAILY [facility] PRN Reason: Protocol Last Admin: 11/04/17 09:32 Dose: 167 mls/hr Trimethoprim/Sulfamethoxazole (300 mg/ Dextrose) 500 mls @ 250 mls/hr IVPB Q8 [facility] PRN Reason: Protocol Last Admin: 11/05/17 05:21 Dose: 250 mls/hr Acyclovir 635 mg/ Sodium (Chloride) 100 mls @ 100 mls/hr IV Q8 [facility] PRN Reason: Protocol Ibuprofen (Motrin Tab) 800 mg PO TID PRN PRN Reason: Pain, moderate (4-7) Megestrol Acetate (Megace) 400 mg PO DAILY [facility] Last Admin: 11/04/17 09:30 Dose: 400 mg Methylprednisolone (Solu-Medrol) 40 mg IVP Q8H [facility] Last Admin: 11/05/17 05:22 Dose: 40 mg Pantoprazole Sodium (Protonix Ec Tab) 40 mg PO 0600 [facility] Last Admin: 11/05/17 05:22 Dose: 40 mg Raltegravir (Isentress) 400 mg PO BID [facility] PRN Reason: Protocol Last Admin: 11/04/17 18:05 Dose: 400 mg - Labs Labs: 11/05/17 06:30 11/05/17 06:30 - Constitutional Appears: No Acute Distress, Chronically Ill - Head Exam Head Exam: ATRAUMATIC, NORMAL INSPECTION, NORMOCEPHALIC - Eye Exam Eye Exam: EOMI, Normal appearance, PERRL. absent: Conjunctival injection, Scleral icterus Pupil Exam: NORMAL ACCOMODATION, PERRL - ENT Exam ENT Exam: Mucous Membranes Dry - Neck Exam Neck Exam: Full ROM - Respiratory Exam Respiratory Exam: Decreased Breath Sounds (b/l), Rhonchi (L side), NORMAL BREATHING PATTERN. absent: Accessory Muscle Use, Clear to Ausculation Bilateral , Rales, Wheezes, Respiratory Distress Additional comments: coarse breath sounds L > R - Cardiovascular Exam Cardiovascular Exam: Tachycardia, +S1, +S2 - GI/Abdominal Exam GI & Abdominal Exam: Soft, Normal Bowel Sounds. absent: Distended, Firm, Guarding, Rigid, Tenderness - Rectal Exam Rectal Exam: Deferred - Extremities Exam Extremities Exam: Normal Capillary Refill, Normal Inspection. absent: Pedal Edema - Neurological Exam Neurological Exam: Alert, Awake, CN II-XII Intact, Oriented x3 - Psychiatric Exam Psychiatric exam: Anxious Assessment and Plan - Assessment and Plan (Free Text) Assessment: 62yo female PMHx HIV on HAART, pulmonary fibrosis, and emphysema presents to the ER with 2 days of AMS. ID consulted for questionable PCP pneumonia Plan: -sepsis likely secondary to pna - r/o bacterial, PJP, TB and acute viral meningitis -patient placed on droplet isolation in light of suspected meningitis -CT head: unremarkable -Spinal tap: Volume: 2 Appearance: clear/colorless WBC: 18 RBC: 10 Total Cell Count: 100 Neutrophils: 1 Lymphocytes: 98 Monocytes/Macrophages: 1 Glucose: 70 Total Protein: 37 LDH: pending VDRL: pending HSV I and HSV II: pending -CSF culture 11/01: negative final -Cryptococcus: negative -Procalcitonin: <0.05 -Patient has known hx of HIV on home meds Truvada and Isentress %CD4: 20 Absolute CD4: 164 T Help/Suppress: 0.37 Absolute CD8: 441 %CD8: 55 -blood culture prelim x 1 : no growth -urine culture: consider repeat -Brain MRI: punctate infarct R temporal lobe on the order of 3mm size based on diffusion weighted imaging. no lobar brain infarction identified. Exam otherwise reflects age-appropriate related neuro degenerative changes -CT Chest: diffuse IS infiltrate/pulmonary fibrosis in the left upper lobe. There is more focal area of consolidation/scarrying and volume loss in the superior segment of the left lower lobe. There are also some bulla contiguous with the consolidation. There is also evidence of emphysema in both upper lobes. -CXR: There is left upper lobe IS infiltrate adn a minimal IS infiltrate in the R lower lobe -Echo reviewed- unremarkable -f/u Quantiferon, [id number], Viral Load, AFB cx -patient on Acyclovir, Azithromycin, Rocephin, and Bactrim -continue management as per primary Discussed with Dr. Octaviano Stacy Pgy3 <Alireza Brumfield Sigrid - Last Filed: 11/05/17 18:51> Subjective - Subjective Subjective: Infectious Diseases Attending Physician Addendum Patient seen and examined, discussed with infertility medical assistant. I have reviewed the pertinent clinical information for the patient, including history of present illness, medical, personal and social histories, lab results and imaging findings. I agree with the above findings, assessment and plan. In addition, will continue the patient on Vancomycin, Rocephin for possible sepsis from meningitis. Also will continue patient on IV Acyclovir pending HSV PCR in CSF. Will follow up blood cx and CSF cx, CSF Crypt Ag and CSF VDRL. Will get serum beta glucan and LDH, and continue IV Bactrim, concerned about pneumocystis pneumonia in this patient with chronic HIV infection. Continue ART. Discussed with Dr. Castillo - will get Sputum AFB x 3, put on isolation, will monitor clinically. Objective - Vital Signs/Intake and Output Vital Signs (last 24 hours): Temp Pulse Resp BP Pulse Ox 98.6 F 78 16 113/69 94 L 11/05/17 14:00 11/05/17 14:00 11/05/17 14:00 11/05/17 14:00 11/05/17 14:00 Intake and Output: 11/05/17 11/05/17 06:59 18:59 Output Total 480 Balance -480 - Medications Medications: Current Medications Albuterol/Ipratropium (Duoneb 3 Mg/0.5 Mg (3 Ml) Ud) 3 ml IH [id number] PRN PRN Reason: Wheezing Amitriptyline HCl (Elavil) 100 mg PO DAILY [facility] Last Admin: 11/05/17 10:27 Dose: 100 mg Arformoterol Tartrate (Brovana) 15 mcg IH [id number] [facility] Last Admin: 11/05/17 07:41 Dose: 15 mcg Aspirin (Aspirin Chewable) 81 mg PO DAILY [facility] Last Admin: 11/05/17 10:28 Dose: 81 mg Atorvastatin Calcium (Lipitor) 40 mg PO DIN [facility] Last Admin: 11/05/17 17:35 Dose: 40 mg Budesonide (Pulmicort Respules) 0.5 mg IH [id number] [facility] Last Admin: 11/05/17 07:42 Dose: 0.5 mg Bupropion HCl (Wellbutrin Sr 150 Mg) 150 mg PO DAILY [facility] Last Admin: 11/05/17 10:28 Dose: 150 mg Clonidine HCl (Catapres) 0.3 mg PO TID [facility] Last Admin: 11/05/17 17:35 Dose: 0.3 mg Emtricitabine/Tenofovir (Truvada 200 Mg-300 Mg) 1 tab PO DAILY [facility] PRN Reason: Protocol Last Admin: 11/05/17 10:26 Dose: 1 tab Heparin Sodium (Porcine) (Heparin) 5,000 units SC Q8 [facility] PRN Reason: Protocol Last Admin: 11/05/17 14:31 Dose: Not Given Ceftriaxone Sodium (Rocephin 2 Gm Ivpb) 2 gm in 100 mls @ 100 mls/hr IVPB 0000, 1200 [facility] PRN Reason: Protocol Last Admin: 11/05/17 14:30 Dose: 100 mls/hr Azithromycin (Zithromax 500mg In Ns) 500 mg in 250 mls @ 167 mls/hr IVPB DAILY [facility] PRN Reason: Protocol Last Admin: 11/05/17 10:26 Dose: 167 mls/hr Trimethoprim/Sulfamethoxazole (300 mg/ Dextrose) 500 mls @ 250 mls/hr IVPB Q8 [facility] PRN Reason: Protocol Last Admin: 11/05/17 17:34 Dose: 250 mls/hr Acyclovir 635 mg/ Sodium (Chloride) 100 mls @ 100 mls/hr IV Q8 [facility] PRN Reason: Protocol Last Admin: 11/05/17 14:29 Dose: 100 mls/hr Ibuprofen (Motrin Tab) 800 mg PO TID PRN PRN Reason: Pain, moderate (4-7) Megestrol Acetate (Megace) 400 mg PO DAILY [facility] Last Admin: 11/05/17 10:26 Dose: 400 mg Methylprednisolone (Solu-Medrol) 40 mg IVP Q8H [facility] Last Admin: 11/05/17 14:30 Dose: 40 mg Pantoprazole Sodium (Protonix Ec Tab) 40 mg PO 0600 [facility] Last Admin: 11/05/17 05:22 Dose: 40 mg Raltegravir (Isentress) 400 mg PO BID [facility] PRN Reason: Protocol Last Admin: 11/05/17 17:34 Dose: 400 mg - Labs Labs: 11/05/17 06:30 11/05/17 06:30 Assessment and Plan - Assessment and Plan (Free Text) Plan: Infectious Diseases Attending Physician Addendum Patient seen and examined, discussed with infertility medical assistant. I have reviewed the pertinent clinical information for the patient, including history of present illness, medical, personal and social histories, lab results and imaging findings. I agree with the above findings, assessment and plan. In addition: Assessment sepsis from acute bacterial pneumonia, R/O PJP in this patient with chronic HIV infection, R/O TB acute meningitis R/O viral emphysema and pulmonary fibrosis Plan follow up final culture results follow up sputum AFB x 3 and Quantiferon TB test continue Rocephin, Zithromax and IV Bactrim day 4 - follow up Fungitell will continue to monitor clinically continue ART follow up final CSF work up results including HSV PCR; CSF crypt Ag is negative , pending CSF VDRL - continue Acyclovir for now
[2017-11-05] MEDS: Megestrol Acetate 40 mg/ml Cup PO SCH (10:26)
[2017-11-05] MEDS: Emtricitabine-Tenofovir 200 mg-300 mg Tab PO SCH (10:26)
[2017-11-05] MEDS: Azithromycin 500MG/NS 250ml 500 MG/250 ML BAG IVPB SCH (10:26)
[2017-11-05] MEDS: ACYCLOVIR IV SCH ×3 (10:28→22:01)
[2017-11-05] MEDS: buPROPion SR 150 MG TABLET PO SCH (10:28)
[2017-11-05] MEDS: SODIUM CHLORIDE 0.9% IV SCH ×3 (10:28→22:01)
[2017-11-05] MEDS ORDERED: Sodium Chloride 3% for Inhalation 4 ML VIAL.NEB IH ONE (13:03)
[2017-11-05] MEDS: cefTRIAXone 2 GM IN NS 2 GM/100 ML BAG IVPB SCH ×2 (14:30→23:38)
--- NOTE | 2017-11-05 21:34 | CP.PCM.PN ---
<Carrington Churchill - Last Filed: 11/05/17 21:53> Subjective - Date & Time of Evaluation Date of Evaluation: 11/05/17 Time of Evaluation: 07:00 - Subjective Subjective: Pt seen and examined this morning. Pt on TB isolation precautions. Pt complains of dry cough, and not being able to produce a sputum sample. Objective - Vital Signs/Intake and Output Vital Signs (last 24 hours): Temp Pulse Resp BP Pulse Ox 98.6 F 78 16 113/69 94 L 11/05/17 14:00 11/05/17 14:00 11/05/17 14:00 11/05/17 14:00 11/05/17 14:00 Intake and Output: 11/05/17 11/06/17 18:59 06:59 Intake Total 600 Balance 600 - Medications Medications: Current Medications Albuterol/Ipratropium (Duoneb 3 Mg/0.5 Mg (3 Ml) Ud) 3 ml IH [id number] PRN PRN Reason: Wheezing Amitriptyline HCl (Elavil) 100 mg PO DAILY [facility] Last Admin: 11/05/17 10:27 Dose: 100 mg Arformoterol Tartrate (Brovana) 15 mcg IH [id number] [facility] Last Admin: 11/05/17 20:35 Dose: Not Given Aspirin (Aspirin Chewable) 81 mg PO DAILY [facility] Last Admin: 11/05/17 10:28 Dose: 81 mg Atorvastatin Calcium (Lipitor) 40 mg PO DIN [facility] Last Admin: 11/05/17 17:35 Dose: 40 mg Budesonide (Pulmicort Respules) 0.5 mg IH [id number] [facility] Last Admin: 11/05/17 20:35 Dose: Not Given Bupropion HCl (Wellbutrin Sr 150 Mg) 150 mg PO DAILY [facility] Last Admin: 11/05/17 10:28 Dose: 150 mg Clonidine HCl (Catapres) 0.3 mg PO TID [facility] Last Admin: 11/05/17 17:35 Dose: 0.3 mg Emtricitabine/Tenofovir (Truvada 200 Mg-300 Mg) 1 tab PO DAILY [facility] PRN Reason: Protocol Last Admin: 11/05/17 10:26 Dose: 1 tab Heparin Sodium (Porcine) (Heparin) 5,000 units SC Q8 [facility] PRN Reason: Protocol Last Admin: 11/05/17 14:31 Dose: Not Given Ceftriaxone Sodium (Rocephin 2 Gm Ivpb) 2 gm in 100 mls @ 100 mls/hr IVPB 0000, 1200 [facility] PRN Reason: Protocol Last Admin: 11/05/17 14:30 Dose: 100 mls/hr Azithromycin (Zithromax 500mg In Ns) 500 mg in 250 mls @ 167 mls/hr IVPB DAILY [facility] PRN Reason: Protocol Last Admin: 11/05/17 10:26 Dose: 167 mls/hr Trimethoprim/Sulfamethoxazole (300 mg/ Dextrose) 500 mls @ 250 mls/hr IVPB Q8 [facility] PRN Reason: Protocol Last Admin: 11/05/17 17:34 Dose: 250 mls/hr Acyclovir 635 mg/ Sodium (Chloride) 100 mls @ 100 mls/hr IV Q8 [facility] PRN Reason: Protocol Last Admin: 11/05/17 14:29 Dose: 100 mls/hr Ibuprofen (Motrin Tab) 800 mg PO TID PRN PRN Reason: Pain, moderate (4-7) Megestrol Acetate (Megace) 400 mg PO DAILY [facility] Last Admin: 11/05/17 10:26 Dose: 400 mg Methylprednisolone (Solu-Medrol) 40 mg IVP Q8H [facility] Last Admin: 11/05/17 14:30 Dose: 40 mg Pantoprazole Sodium (Protonix Ec Tab) 40 mg PO 0600 [facility] Last Admin: 11/05/17 05:22 Dose: 40 mg Raltegravir (Isentress) 400 mg PO BID [facility] PRN Reason: Protocol Last Admin: 11/05/17 17:34 Dose: 400 mg - Labs Labs: 11/05/17 06:30 11/05/17 06:30 - Constitutional Appears: In Acute Distress - Head Exam Head Exam: ATRAUMATIC, NORMOCEPHALIC - Respiratory Exam Respiratory Exam: Wheezes, NORMAL BREATHING PATTERN. absent: Accessory Muscle Use - Cardiovascular Exam Cardiovascular Exam: REGULAR RHYTHM, +S1, +S2 - GI/Abdominal Exam GI & Abdominal Exam: Soft, Tenderness, Normal Bowel Sounds - Extremities Exam Extremities Exam: absent: Calf Tenderness - Neurological Exam Neurological Exam: Alert, Awake Assessment and Plan - Assessment and Plan (Free Text) Assessment: Pt is a 62 yo female with a PMH of HIV, emphysema, and pulmonary fibrosis, who presented to the ED with 2 days of AMS Plan: Pneumonia - Blood cultures: no growth 4 days - ID: Octaviano continue Rocephin 2 gram IVPB Q12 Zithromax 500mg IVPB Daily Bactrim IVPB 300mg Q8 - Pulm Litinski: pt has CAP, TB isolation due to HIV and COPD. - Cryptococcal Ag not detected - CD4: 164 - CD8: 441 - AFB x 3 uncollected, and quantiferon TB test pending - ordered sputum induction - Viral Load ordered AMS - MRI: punctate infarct right temporal lobe, 3mm in size - start pt on ASA, statin - Head CT negative for acute changes. LP: shows no evidence of meningitis - continue Neuro checks - ECHO: 65% EF, Severe Tricuspid regurgitation, Severe Pulmonary Hypertension - HSV preliminary results negative after 48hr, if negative will discontinue Acyclovir - Neuro: French following Pulm fibrosis -Pulm: Brovana and steroids HIV - continue truvada - continue reltegravir <Abraham May - Last Filed: 11/06/17 09:04> Objective - Vital Signs/Intake and Output Vital Signs (last 24 hours): Temp Pulse Resp BP Pulse Ox 97.6 F 66 18 132/80 95 11/06/17 06:00 11/06/17 06:00 11/06/17 06:00 11/06/17 06:00 11/06/17 06:00 Intake and Output: 11/06/17 11/06/17 06:59 18:59 Intake Total 720 Output Total 500 Balance 220 - Medications Medications: Current Medications Albuterol/Ipratropium (Duoneb 3 Mg/0.5 Mg (3 Ml) Ud) 3 ml IH [id number] PRN PRN Reason: Wheezing Amitriptyline HCl (Elavil) 100 mg PO DAILY [facility] Last Admin: 11/05/17 10:27 Dose: 100 mg Arformoterol Tartrate (Brovana) 15 mcg IH [id number] [facility] Last Admin: 11/06/17 07:19 Dose: 15 mcg Aspirin (Aspirin Chewable) 81 mg PO DAILY [facility] Last Admin: 11/05/17 10:28 Dose: 81 mg Atorvastatin Calcium (Lipitor) 40 mg PO DIN [facility] Last Admin: 11/05/17 17:35 Dose: 40 mg Budesonide (Pulmicort Respules) 0.5 mg IH [id number] [facility] Last Admin: 11/06/17 07:19 Dose: 0.5 mg Bupropion HCl (Wellbutrin Sr 150 Mg) 150 mg PO DAILY [facility] Last Admin: 11/05/17 10:28 Dose: 150 mg Clonidine HCl (Catapres) 0.3 mg PO TID [facility] Last Admin: 11/05/17 17:35 Dose: 0.3 mg Emtricitabine/Tenofovir (Truvada 200 Mg-300 Mg) 1 tab PO DAILY [facility] PRN Reason: Protocol Last Admin: 11/05/17 10:26 Dose: 1 tab Heparin Sodium (Porcine) (Heparin) 5,000 units SC Q8 [facility] PRN Reason: Protocol Last Admin: 11/06/17 05:45 Dose: Not Given Ceftriaxone Sodium (Rocephin 2 Gm Ivpb) 2 gm in 100 mls @ 100 mls/hr IVPB 0000, 1200 [facility] PRN Reason: Protocol Last Admin: 11/05/17 23:38 Dose: 100 mls/hr Azithromycin (Zithromax 500mg In Ns) 500 mg in 250 mls @ 167 mls/hr IVPB DAILY [facility] PRN Reason: Protocol Last Admin: 11/05/17 10:26 Dose: 167 mls/hr Trimethoprim/Sulfamethoxazole (300 mg/ Dextrose) 500 mls @ 250 mls/hr IVPB Q8 [facility] PRN Reason: Protocol Last Admin: 11/06/17 05:32 Dose: 250 mls/hr Acyclovir 635 mg/ Sodium (Chloride) 100 mls @ 100 mls/hr IV Q8 [facility] PRN Reason: Protocol Last Admin: 11/06/17 05:32 Dose: 100 mls/hr Ibuprofen (Motrin Tab) 800 mg PO TID PRN PRN Reason: Pain, moderate (4-7) Megestrol Acetate (Megace) 400 mg PO DAILY [facility] Last Admin: 11/05/17 10:26 Dose: 400 mg Methylprednisolone (Solu-Medrol) 40 mg IVP Q8H [facility] Last Admin: 11/06/17 05:32 Dose: 40 mg Pantoprazole Sodium (Protonix Ec Tab) 40 mg PO 0600 [facility] Last Admin: 11/06/17 05:31 Dose: 40 mg Raltegravir (Isentress) 400 mg PO BID [facility] PRN Reason: Protocol Last Admin: 11/05/17 17:34 Dose: 400 mg - Labs Labs: 11/06/17 06:45 11/06/17 06:45 Attending/Attestation - Attestation I have personally seen and examined this patient.: Yes I have fully participated in the care of the patient.: Yes I have reviewed all pertinent clinical information, including history, physical exam and plan: Yes Notes (Text): 11/05/17 62 year old female with past medical history of HIV, pulmonary fibrosis and emphysema who presented with altered mental status, now resolved. CT head was negative. MRI brain showed punctae right temporal lobe infarct. Patient is on aspirin and statin. Pending neurology evaluation. CXR showed left upper lobe interstitial infiltrate and minimal interstitial infiltrate in right lower lobe. Patient is s/p LP without evidence of bacterial meningitis. Continue with antibiotics as per ID. Patient is pending AFB x 3. Patient is currently on rochepin, azithromycin, bactrim, iv steroids and acyclovir. Abraham May MD Hospitalist.
[2017-11-06 01:51] LABS: SPECIMEN SOURCE CSF
[2017-11-06] MEDS: Pantoprazole 40 mg EC Tab PO SCH (05:31)
[2017-11-06] MEDS: Sulfamethoxazole/Trimethoprim 300 MG in Dextrose 5% In Water 500 ML IVPB SCH ×3 (05:32→21:17)
[2017-11-06] MEDS: MethylPREDNISolone 40 mg Vial IVP SCH ×3 (05:32→23:25)
[2017-11-06] MEDS: ACYCLOVIR IV SCH ×3 (05:32→21:19)
[2017-11-06] MEDS: SODIUM CHLORIDE 0.9% IV SCH ×3 (05:32→21:19)
[2017-11-06 07:16] LABS: GRAN # 5.43 (1.4-6.5); GRAN % 72.3 % (50.0-68.0); HEMOGLOBIN 13.3 g/dL (12.0-16.0); LYMPH # 1.6 (1.2-3.4); LYMPH % 21.3 % (22.0-35.0); MEAN CELL VOLUME 92.4 fl (80.0-105.0); MEAN CORPUSCULAR HEMOGLOBIN 30.5 pg (25.0-35.0); MONO # 0.5 (0.1-0.6); MONO % 6.4 % (1.0-6.0); RBC 4.36 10^6/uL (3.5-6.1); RED CELL DISTRIBUTION WIDTH 14.9 % (11.5-14.5); WHITE BLOOD COUNT 7.5 10^3/ul (4.5-11.0)
[2017-11-06] MEDS: Arformoterol 15 mcg/2 ml Inh Sol IH SCH (07:19)
[2017-11-06] MEDS: Budesonide 0.5 mg/2 ml Inhal Susp UD IH SCH (07:19)
[2017-11-06 07:31] LABS: ALB/GLOB RATIO 0.6 (1.1-1.8); ALBUMIN 2.6 g/dL (3.0-4.8); ALT/SGPT 20 U/L (7-56); AST/SGOT 18 U/L (14-36); BLOOD UREA NITROGEN 18 mg/dL (7-21); CALCIUM 8.2 mg/dL (8.4-10.5); GFR NON-AFRICAN AMERICAN > 60
[2017-11-06] MEDS: buPROPion SR 150 MG TABLET PO SCH (10:56)
[2017-11-06] MEDS: Azithromycin 500MG/NS 250ml 500 MG/250 ML BAG IVPB SCH (10:56)
[2017-11-06] MEDS: Emtricitabine-Tenofovir 200 mg-300 mg Tab PO SCH (10:56)
[2017-11-06] MEDS: Megestrol Acetate 40 mg/ml Cup PO SCH (10:56)
[2017-11-06] MEDS ORDERED: Sodium Chloride 3% for Inhalation 4 ML VIAL.NEB IH SCH (11:30)
[2017-11-06] MEDS: cefTRIAXone 2 GM IN NS 2 GM/100 ML BAG IVPB SCH (12:22)
--- NOTE | 2017-11-06 12:41 | PN ---
DATE: 11/06/2017 SUBJECTIVE: The patient is seen and examined at bedside. She still reports some dry cough with no sputum production, thus unable to get sputum for AFB smear and culture. She also reports that she has substantially decreased exercise capacity and has to stop to rest after walking from her room to nursing station. PHYSICAL EXAMINATION: VITAL SIGNS: Temperature 97.6, blood pressure 132/80, heart rate 66, oxygen saturation 95% on room air, respiratory rate 18. ENT: Head and neck atraumatic. LUNGS: Few squeaks and crackles in the left base. Right lungs appeared to be clear to auscultation, but with decreased breath sounds. HEART: Regular rate and rhythm. S1, S2 distant. ABDOMEN: Soft, nontender, nondistended. MUSCULOSKELETAL: No C/C/E. NEUROLOGIC: The patient moves all extremities spontaneously. SKIN: Moist. PSYCH: The patient is alert, awake and oriented x3. LABORATORY DATA AND IMAGING: WBC 7.5, hemoglobin 13.3, platelet count 180, lymphocytes 21, granulocytes 72.3, eosinophils 0, HSV PCR not detected; however, HIV-1 RNA 4.16. CD-4 count 164. CSF WBC 18, CSF RBC 10, lymphocyte predominant, total protein 37, glucose 70 (protein and glucose in CSF), no cryptococcal antigen are noted in the CSF. Sodium 133, potassium 4.6, chloride 101, carbon dioxide 27, BUN 18, creatinine 0.8, glucose 94, AST 18, ALT 20, total bilirubin 0.3. Echocardiogram reveal severe pulmonary hypertension with reportedly pericardial effusion and preserved left ventricular ejection fraction and minimally affected diastolic function. MEDICATIONS: Acyclovir, DuoNeb p.r.n., Elavil, Brovana, aspirin, Lipitor, Pulmicort, bupropion, ceftriaxone, clonidine, Truvada, heparin 5000 subcu every 8, Megace, Solu-Medrol 40 mg IV every 8 hrs Protonix, Isentress, hypertonic saline for inhalation, Bactrim, azithromycin. ASSESSMENT AND PLAN: This is a 62-year-old lady with history of human immunodeficiency virus who presented with community-acquired pneumonia in the setting of chronic obstructive pulmonary disease exacerbation. The patient was treated with antibiotics, steroid taper and bronchodilators with substantial improvement. Based on multidisciplinary discussion, it was decided to rule out even remote possibility of active Mycobacterium tuberculosis infection and thus the patient was put on isolation, QuantiFERON and AFB sputum x3 were ordered for smear and culture. At present time, we are trying to help pt to produce sputum with hypertonic saline inhalation. The patient is subjectively doing better. However, she was found severe pulmonary hypertension which could not be attributed to LV disease. Once the patient is stable, she would definitely need to go for right heart catheterization to better elaborate on etiology of her severe pulmonary hypertension. It may be related to combination of factors including human immunodeficiency virus, chronic obstructive pulmonary disease and pulmonary fibrosis. Meanwhile, I will get rheumatoid screen to be thorough. I will continue to follow chest x-ray. The duration of antibiotics will be deferred to ID service. It does appear though that the patient is improving clinically. She remains afebrile and without leukocytosis. My suspicion for Pneumocystis carinii pneumonia or invasive fungal infection is pretty low. I will continue to target euvolemia, euglycemia, normothermia and oxygen saturation more than 90%. We will continue with deep vein thrombosis, gastrointestinal prophylaxis. Rip Castillo MD [facility]
--- NOTE | 2017-11-06 13:17 | RAD ---
Date of service: 11/06/2017 HISTORY: cap COMPARISON: No prior. FINDINGS: LUNGS: The lungs are hyperinflated and there is peribronchial thickening with chronic changes in both lungs. There is persistent interstitial fibrosis in the left upper lobe. PLEURA: No significant pleural effusion identified, no pneumothorax apparent. CARDIOVASCULAR: Persistent moderate cardiomegaly. OSSEOUS STRUCTURES: No significant abnormalities. VISUALIZED UPPER ABDOMEN: Normal. OTHER FINDINGS: None. IMPRESSION: No active pulmonary disease. COPD and interstitial fibrosis in the left upper lobe.
[2017-11-06] MEDS ORDERED: Gadodiamide 287 MG/ML VIAL (15ML) IV ONE (16:30)
--- NOTE | 2017-11-06 20:26 | CP.PCM.PN ---
<Carrington Churchill - Last Filed: 11/06/17 20:44> Subjective - Date & Time of Evaluation Date of Evaluation: 11/06/17 Time of Evaluation: 08:00 - Subjective Subjective: Pt seen and examined. Pt reports dry cough. Pt denies any new complaints. Objective - Vital Signs/Intake and Output Vital Signs (last 24 hours): Temp Pulse Resp BP Pulse Ox 97.6 F 92 H 18 110/77 95 11/06/17 06:00 11/06/17 17:55 11/06/17 06:00 11/06/17 17:55 11/06/17 06:00 Intake and Output: 11/06/17 11/07/17 18:59 06:59 Intake Total 480 480 Balance 480 480 - Medications Medications: Current Medications Albuterol/Ipratropium (Duoneb 3 Mg/0.5 Mg (3 Ml) Ud) 3 ml IH [id number] PRN PRN Reason: Wheezing Amitriptyline HCl (Elavil) 100 mg PO DAILY [facility] Last Admin: 11/06/17 10:56 Dose: 100 mg Arformoterol Tartrate (Brovana) 15 mcg IH [id number] [facility] Last Admin: 11/06/17 07:19 Dose: 15 mcg Aspirin (Aspirin Chewable) 81 mg PO DAILY [facility] Last Admin: 11/06/17 10:56 Dose: 81 mg Atorvastatin Calcium (Lipitor) 40 mg PO DIN [facility] Last Admin: 11/06/17 17:55 Dose: 40 mg Budesonide (Pulmicort Respules) 0.5 mg IH [id number] [facility] Last Admin: 11/06/17 07:19 Dose: 0.5 mg Bupropion HCl (Wellbutrin Sr 150 Mg) 150 mg PO DAILY [facility] Last Admin: 11/06/17 10:56 Dose: 150 mg Clonidine HCl (Catapres) 0.3 mg PO TID [facility] Last Admin: 11/06/17 17:55 Dose: 0.3 mg Emtricitabine/Tenofovir (Truvada 200 Mg-300 Mg) 1 tab PO DAILY [facility] PRN Reason: Protocol Last Admin: 11/06/17 10:56 Dose: 1 tab Heparin Sodium (Porcine) (Heparin) 5,000 units SC Q8 [facility] PRN Reason: Protocol Last Admin: 11/06/17 14:50 Dose: Not Given Ceftriaxone Sodium (Rocephin 2 Gm Ivpb) 2 gm in 100 mls @ 100 mls/hr IVPB 0000, 1200 [facility] PRN Reason: Protocol Last Admin: 11/06/17 12:22 Dose: 100 mls/hr Azithromycin (Zithromax 500mg In Ns) 500 mg in 250 mls @ 167 mls/hr IVPB DAILY [facility] PRN Reason: Protocol Last Admin: 11/06/17 10:56 Dose: 167 mls/hr Trimethoprim/Sulfamethoxazole (300 mg/ Dextrose) 500 mls @ 250 mls/hr IVPB Q8 [facility] PRN Reason: Protocol Last Admin: 11/06/17 14:50 Dose: 250 mls/hr Acyclovir 635 mg/ Sodium (Chloride) 100 mls @ 100 mls/hr IV Q8 [facility] PRN Reason: Protocol Last Admin: 11/06/17 14:50 Dose: 100 mls/hr Ibuprofen (Motrin Tab) 800 mg PO TID PRN PRN Reason: Pain, moderate (4-7) Megestrol Acetate (Megace) 400 mg PO DAILY [facility] Last Admin: 11/06/17 10:56 Dose: 400 mg Methylprednisolone (Solu-Medrol) 40 mg IVP Q12H [facility] Last Admin: 11/06/17 12:23 Dose: 40 mg Pantoprazole Sodium (Protonix Ec Tab) 40 mg PO 0600 [facility] Last Admin: 11/06/17 05:31 Dose: 40 mg Raltegravir (Isentress) 400 mg PO BID [facility] PRN Reason: Protocol Last Admin: 11/06/17 17:55 Dose: 400 mg - Labs Labs: 11/06/17 06:45 11/06/17 06:45 - Constitutional Appears: No Acute Distress - Respiratory Exam Respiratory Exam: Clear to Ausculation Bilateral, NORMAL BREATHING PATTERN - Cardiovascular Exam Cardiovascular Exam: RRR, +S1, +S2 - GI/Abdominal Exam GI & Abdominal Exam: Soft, Normal Bowel Sounds. absent: Tenderness - Extremities Exam Extremities Exam: Full ROM, Normal Inspection. absent: Calf Tenderness - Neurological Exam Neurological Exam: Alert, Awake - Psychiatric Exam Psychiatric exam: Normal Affect, Normal Mood - Skin Skin Exam: Dry, Normal Color, Warm Assessment and Plan - Assessment and Plan (Free Text) Assessment: Pt is a 62 yo female with a PMH of HIV, emphysema, and pulmonary fibrosis, who presented to the ED with 2 days of AMS Plan: Pneumonia - Blood cultures: no growth - ID: [email or web address] continue Rocephin 2 gram IVPB Q12 Zithromax 500mg IVPB Daily Bactrim IVPB 300mg Q8 - Pulm Litinski: pt has CAP, TB isolation due to HIV and COPD. Rheumatoid screen. - Cryptococcal Ag not detected - CD4: 164, CD8: 441 - AFB x 3 uncollected, and - quantiferon TB test -indeterminate - sputum induction 3% saline, unsuccessful - Viral Load HIV RNA 4.16 - VDRL pending - Beta D Glucan: negative AMS - MRI: punctate infarct right temporal lobe, 3mm in size - ASA - statin - Head CT negative for acute changes. LP: shows no evidence of meningitis - continue Neuro checks - ECHO: 65% EF, Severe Tricuspid regurgitation, Severe Pulmonary Hypertension - HSV negative viral cultures, will discontinue Acyclovir - Neuro: French following Pulm HTN - pt would benefit from a Right Heart Cath as an out pt Pulm fibrosis -Pulm: Brovana and steroids HIV - continue truvada - continue reltegravir Pt seen, examined, assessment and plan discussed with Dr May. Carrington Churchill <Abraham May - Last Filed: 11/07/17 08:01> Objective - Vital Signs/Intake and Output Vital Signs (last 24 hours): Temp Pulse Resp BP Pulse Ox 97.6 F 80 20 124/80 92 L 11/06/17 22:25 11/06/17 22:25 11/06/17 22:25 11/06/17 22:25 11/06/17 22:25 Intake and Output: 11/07/17 11/07/17 06:59 18:59 Intake Total 840 Balance 840 - Medications Medications: Current Medications Albuterol/Ipratropium (Duoneb 3 Mg/0.5 Mg (3 Ml) Ud) 3 ml IH [id number] PRN PRN Reason: Wheezing Amitriptyline HCl (Elavil) 100 mg PO DAILY [facility] Last Admin: 11/06/17 10:56 Dose: 100 mg Arformoterol Tartrate (Brovana) 15 mcg IH [id number] [facility] Last Admin: 11/07/17 07:50 Dose: Not Given Aspirin (Aspirin Chewable) 81 mg PO DAILY [facility] Last Admin: 11/06/17 10:56 Dose: 81 mg Atorvastatin Calcium (Lipitor) 40 mg PO DIN [facility] Last Admin: 11/06/17 17:55 Dose: 40 mg Budesonide (Pulmicort Respules) 0.5 mg IH [id number] [facility] Last Admin: 11/07/17 07:50 Dose: Not Given Bupropion HCl (Wellbutrin Sr 150 Mg) 150 mg PO DAILY [facility] Last Admin: 11/06/17 10:56 Dose: 150 mg Clonidine HCl (Catapres) 0.3 mg PO TID [facility] Last Admin: 11/06/17 17:55 Dose: 0.3 mg Emtricitabine/Tenofovir (Truvada 200 Mg-300 Mg) 1 tab PO DAILY [facility] PRN Reason: Protocol Last Admin: 11/06/17 10:56 Dose: 1 tab Heparin Sodium (Porcine) (Heparin) 5,000 units SC Q8 [facility] PRN Reason: Protocol Last Admin: 11/07/17 05:12 Dose: Not Given Ceftriaxone Sodium (Rocephin 2 Gm Ivpb) 2 gm in 100 mls @ 100 mls/hr IVPB 0000, 1200 [facility] PRN Reason: Protocol Last Admin: 11/07/17 01:27 Dose: 100 mls/hr Azithromycin (Zithromax 500mg In Ns) 500 mg in 250 mls @ 167 mls/hr IVPB DAILY [facility] PRN Reason: Protocol Last Admin: 11/06/17 10:56 Dose: 167 mls/hr Trimethoprim/Sulfamethoxazole (300 mg/ Dextrose) 500 mls @ 250 mls/hr IVPB Q8 [facility] PRN Reason: Protocol Last Admin: 11/07/17 05:11 Dose: 250 mls/hr Acyclovir 635 mg/ Sodium (Chloride) 100 mls @ 100 mls/hr IV Q8 [facility] PRN Reason: Protocol Last Admin: 11/07/17 05:13 Dose: 100 mls/hr Ibuprofen (Motrin Tab) 800 mg PO TID PRN PRN Reason: Pain, moderate (4-7) Megestrol Acetate (Megace) 400 mg PO DAILY [facility] Last Admin: 11/06/17 10:56 Dose: 400 mg Methylprednisolone (Solu-Medrol) 40 mg IVP Q12H [facility] Last Admin: 11/06/17 23:25 Dose: 40 mg Pantoprazole Sodium (Protonix Ec Tab) 40 mg PO 0600 [facility] Last Admin: 11/07/17 05:12 Dose: 40 mg Raltegravir (Isentress) 400 mg PO BID [facility] PRN Reason: Protocol Last Admin: 11/06/17 17:55 Dose: 400 mg - Labs Labs: 11/06/17 06:45 11/06/17 06:45 Attending/Attestation - Attestation I have personally seen and examined this patient.: Yes I have fully participated in the care of the patient.: Yes I have reviewed all pertinent clinical information, including history, physical exam and plan: Yes Notes (Text): 11/06/17 62 year old female with past medical history of HIV, pulmonary fibrosis and emphysema who presented with altered mental status, now resolved. Patient is s/p LP without evidence of bacterial meningitis. CT head was negative. MRI brain showed punctate right temporal lobe infarct. Patient is on aspirin and statin. Pending neurology evaluation who requested repeat MRI brain which is pending. PT evaluation was appreciated who recommended ARPAN. Initial CXR showed left upper lobe interstitial infiltrate and minimal interstitial infiltrate in right lower lobe. Continue with antibiotics as per ID. Patient is pending AFB x 3 however still unable to provide sample. Will discuss with pulmonary and ID. Quantiferon study was indeterminate. Patient is currently on rochepin, azithromycin, bactrim, iv steroids and acyclovir. Severe pulmonary hypertension was noted on echocardiogram. Pulmonary and cardiology recommended outpatient pulmonary follow up and right heart cath. Abraham May MD Hospitalist.
--- NOTE | 2017-11-06 22:45 | PN ---
DATE: 11/06/2017 SUBJECTIVE: Patient is seen earlier today in 578, bed 2. No fevers and no chills. PHYSICAL EXAMINATION: VITAL SIGNS: Temperature is 98. T-max was 102 on the 6th, heart rate of 80, respiratory rate of 18. HEENT: Unremarkable. NECK: Supple. LUNGS: Decreased breath sounds. HEART: Normal S1 and S2. ABDOMEN: Soft. LABORATORY EXAMINATION: Reveals a white count of 7, platelets of 180, hemoglobin of 13. Chemistries are noted and patient's procalcitonin is less than 0.05. Urinalysis is noted and CSF fluid reveals 18 wbcs and 98% lymphocytes and patient's cryptococcal antigen is not detected. 10 RBCs also. Total cell count was 100. Immunology is reviewed. CD4 count percent is 20% with an absolute CD4 count of 164 and indeterminate TB test, beta 1,3-glucanase is negative. HIV PCR is positive. HSV 1 and HSV 2 is not detected in the CSF. Microbiology reveals the blood cultures are negative. CSF cultures no growth. Viral cultures pending. Review of orders reveals the patient is on ceftriaxone and acyclovir and azithromycin and Dr. May's progress note is reviewed. ASSESSMENT AND PLAN: She is a 62-year-old female with positive human immunodeficiency virus on human immunodeficiency virus medications, pulmonary fibrosis, emphysema, admitted with acute mental status change with sepsis secondary to pneumonia and possible acute viral meningitis. Thus far, the cerebrospinal fluid cultures are negative. Patient does have acquired immunodeficiency syndrome by definition. Absolute CD4 count of 164. 18 white blood cells in the cerebrospinal fluid may be seen in human immunodeficiency virus patient pleocytosis of proline-rich acidic proteins antigen is negative. Cultures are negative. We will check on the magnetic resonance imaging of the head and patient did have a computerized axial tomography scan of the chest, shows diffused interstitial pneumonia, left upper lobe, more focal areas of consolidation. We will follow closely with you. Dr. Castillo's note is reviewed. Patient's human immunodeficiency virus has noted a community-acquired pneumonia in the setting of a chronic obstructive lung disease, possible microbacteria and tuberculosis. We will follow closely. Continue isolation until the acid-fast bacilli smears in the sputum. We will follow with you. Zay Lee MD
--- NOTE | 2017-11-06 23:42 | CON ---
DATE: 11/06/2017 CONSULT SERVICE CARDIOLOGY DICTATING PHYSICIAN: Giorgi Acosta MD REASON FOR THE CONSULTATION: Pulmonary hypertension, pulmonary fibrosis, cardiac evaluation, trace pericardial effusion. BRIEF CLINICAL HISTORY: This is a 62-year-old female with a past medical history significant for HIV related pulmonary disease, history of pulmonary fibrosis, pulmonary hypertension, emphysema, active tobacco abuse, longstanding history of hypertension, admitted with altered mental status and HIV related disease, decreased T-cell count, was initially in ICU, now patient is on the floor without oxygen. Denies any chest pain, denies any shortness of breath, denies any palpitation. PAST MEDICAL HISTORY: Significant for history of emphysema, HIV, pulmonary fibrosis, hypertension, HIV-related pneumonia in the past, being followed at [facility] and being followed by Dr. Santiago, laundry press operator at [facility]. SOCIAL HISTORY: Active tobacco abuse, started smoking 1 to 2 pack a day, at the age of 16. Denies any substance abuse, denies any history of alcohol abuse. History of HIV positive, got from the sex. CURRENT MEDICATIONS: Patient is taking Truvada, Isentress, clonidine, Advair, Ventolin, Elavil, Megace and medication for pulmonary hypertension. ALLERGIES: NO KNOWN DRUG ALLERGIES. REVIEW OF SYSTEMS: As per HPI. PHYSICAL EXAMINATION: As follows: VITAL SIGNS: Temperature afebrile, heart rate 66, blood pressure 132/80. HEENT: PERRLA. Extraocular muscles intact. NECK: Supple. No carotid bruit or thyromegaly. CHEST: Clear to auscultation. HEART: S1 and S2, regular. ABDOMEN: Soft. EXTREMITY: Clubbing and cyanosis, negative. LABORATORY DATA: Blood workup as follows: WBC 7.5, hemoglobin 13.3, hematocrit 40.3, platelet count 180. Chemistry shows sodium 133, potassium 4.6, chloride 101, carbon dioxide 27, anion gap of 10, BUN 18, creatinine 0.8, total protein 6.8, albumin 2.6, albumin globulin ratio 0.6. EKG on admission 11/01/2017 shows normal sinus, sinus tachycardia. No acute ST-T changes noted. Left axis deviation. Patient had echocardiography done on 11/03/[address] Maldonado and reported as normal LV function, left ventricle within the normal limit, normal segmental wall motion, right ventricle mildly dilated, systolic function of RV is moderately reduced, [id number] mitral regurgitation, severe tricuspid regurgitation, RV systolic pressure of 76, reported as severe pulmonary hypertension, trace circumferential pericardial effusion. IMPRESSION AND PLAN: A 62-year-old female with a past known history of pulmonary fibrosis, pulmonary hypertension, human immunodeficiency virus related pneumonia, active tobacco abuse, admitted with altered mental status, now in isolation for rule out tuberculosis. Without oxygen, patient is comfortable. At this point, we will not suggest any invasive cardiac workup. Patient has a laundry press operator at [facility], being followed by them, so continue followup. No further cardiac workup is planned at this time. Continue to treat human immunodeficiency virus related pneumonia. Upon discharge, patient will be followed by laundry press operator at [facility]. We will sign off the case and glad to follow p.r.n. Thank you, Dr. Castillo/Dr. May for providing us the opportunity in taking care of the patient, Sherly Santizo. Giorgi Acosta MD
[2017-11-07] MEDS: cefTRIAXone 2 GM IN NS 2 GM/100 ML BAG IVPB SCH ×2 (01:27→11:40)
[2017-11-07] MEDS: Sulfamethoxazole/Trimethoprim 300 MG in Dextrose 5% In Water 500 ML IVPB SCH ×4 (05:11→22:50)
[2017-11-07] MEDS: Pantoprazole 40 mg EC Tab PO SCH (05:12)
[2017-11-07] MEDS: ACYCLOVIR IV SCH (05:13)
[2017-11-07] MEDS: SODIUM CHLORIDE 0.9% IV SCH (05:13)
[2017-11-07] MEDS: Arformoterol 15 mcg/2 ml Inh Sol IH SCH ×2 (07:50→20:15)
[2017-11-07] MEDS: Budesonide 0.5 mg/2 ml Inhal Susp UD IH SCH ×2 (07:50→20:15)
[2017-11-07 07:58] LABS: BASO # 0.01 K/mm3 (0.0-2.0); BASO % 0.1 % (0.0-3.0); EOS % 0.3 % (1.5-5.0); GRAN # 3.77 (1.4-6.5); GRAN % 50.5 % (50.0-68.0); HEMOGLOBIN 13.7 g/dL (12.0-16.0); LYMPH % 40.5 % (22.0-35.0); MEAN CELL VOLUME 92.2 fl (80.0-105.0); MEAN CORPUSCULAR HEMOGLOBIN 29.8 pg (25.0-35.0); MEAN CORPUSCULAR HGB CONC 32.3 g/dl (31.0-37.0); MEAN PLATELET VOLUME 9.5 fl (7.0-11.0); MONO # 0.6 (0.1-0.6); MONO % 8.6 % (1.0-6.0); RBC 4.6 10^6/uL (3.5-6.1); RED CELL DISTRIBUTION WIDTH 14.7 % (11.5-14.5); WHITE BLOOD COUNT 7.5 10^3/ul (4.5-11.0)
[2017-11-07 08:11] LABS: ALB/GLOB RATIO 0.7 (1.1-1.8); ALBUMIN 2.8 g/dL (3.0-4.8); ALT/SGPT 18 U/L (7-56); AST/SGOT 22 U/L (14-36); BLOOD UREA NITROGEN 17 mg/dL (7-21); CALCIUM 8.6 mg/dL (8.4-10.5); GFR NON-AFRICAN AMERICAN > 60
--- NOTE | 2017-11-07 11:26 | MRI ---
Date of service: 11/06/2017 PROCEDURE: MRI BRAIN WITH CONTRAST HISTORY: assess R occipital infarct COMPARISON: 11/03/2017 MRI TECHNIQUE: Multiplanar, multisequence MR images of the brain were obtained with intravenous contrast enhancement. 15 cc of Omniscan FINDINGS: HEMORRHAGE: None DWI: No evidence of an acute or early subacute infarction. The small area of restricted diffusion seen previously in the right occipital lobe is faintly visible on diffusion image 12 series 3. No other abnormality seen BRAIN PARENCHYMA: No mass,mass effect or edema. No atrophy or chronic microvascular ischemic changes. ENHANCEMENT: No abnormal intracranial enhancement. VENTRICLES: Unremarkable. No hydrocephalus. CRANIUM: Unremarkable. ORBITS: Grossly unremarkable. PARANASAL SINUSES/MASTOIDS: Clear VASCULAR SYSTEM: Skull base flow voids intact. OTHER FINDINGS: The report concurs with the preliminary [facility] report. IMPRESSION: No acute intracranial findings
[2017-11-07] MEDS: Emtricitabine-Tenofovir 200 mg-300 mg Tab PO SCH (11:52)
[2017-11-07] MEDS: MethylPREDNISolone 40 mg Vial IVP SCH ×2 (11:52→22:54)
[2017-11-07] MEDS: Megestrol Acetate 40 mg/ml Cup PO SCH (11:52)
[2017-11-07] MEDS: Azithromycin 500MG/NS 250ml 500 MG/250 ML BAG IVPB SCH (11:55)
[2017-11-07] MEDS: buPROPion SR 150 MG TABLET PO SCH (11:55)
--- NOTE | 2017-11-07 13:58 | PN ---
DATE: 11/07/2017 SUBJECTIVE: The patient is seen and examined at the bedside. She is comfortable. She has hard time to produce sputum for AFB smear and culture. We tried hypertonic saline inhalation; however, the result was the same. PHYSICAL EXAMINATION: VITAL SIGNS: Temperature 98.3, blood pressure 128/64, heart rate 66, respiratory rate 18, oxygen saturation 96% on room air. ENT: Head and neck atraumatic. LUNGS: Clear to auscultation on the right side and few squeaks with decreased breath sounds on left side. HEART: Regular rate and rhythm. S1 and S2 normal. ABDOMEN: Soft, nontender and nondistended. MUSCULOSKELETAL: No C/C/E. NEURO: The patient moves all extremities spontaneously. SKIN: Moist. PSYCH: The patient is alert, awake and oriented x3. LABORATORY DATA: WBC 7.5, hemoglobin 15.7, platelet count 197. Sodium 133, potassium 4.3, chloride 101, carbon dioxide 28, BUN 17, creatinine 0.8, glucose 74, AST 18, ALT 73, total bilirubin 0.5, albumin 2.8. Rheumatoid factor is positive. SHAZIA-6 profile is pending. ESR 15. IMAGING STUDIES: Chest x-ray from yesterday showed some improvement compared with chest x-ray performed on 11/01/2017. MEDICATIONS: DuoNeb every 6 hours p.r.n., Elavil, Brovana, aspirin, Lipitor, Pulmicort inhaled, Wellbutrin, ceftriaxone, clonidine, Truvada, heparin subcu, ibuprofen p.r.n., Megace, Solu-Medrol 40 mg IV every 12 hours (tapered to 20 mg IV every 12 hours), Isentress, Protonix, Bactrim, and azithromycin. ASSESSMENT AND PLAN: This is a 62-year-old lady who presented with community-acquired pneumonia in the setting of chronic obstructive pulmonary disease, severe pulmonary hypertension, human immunodeficiency virus and who was found to have indeterminate QuantiFERON assay. Even though my suspicion for Mycobacterium tuberculosis not high at all as the patient improved on conventional therapy for community-acquired pneumonia, +low-dose steroids. Her chest x-ray appears to be improved (discussed presonally with Dr. Starr), which would not be expected if the patient had active Mycobacterium tuberculosis infection. I discussed the situation with Dr. Brumfield, Infectious Disease Service, who think that indeterminate QuantiFERON assay still does not allow to rule out possibility of active Mycobacterium tuberculosis infection if sputum for AFB smear/culture is not available. At present time, he wanted to continue to try to induce sputum with inhalation of hypertonic saline; however, willing to give consideration to bronchoscopy if that fails. Dr. Acosta's (Cardiology) consultation is appreciated. No RHC at the present time; however, the patient would be referred to outpatient knitting supervisor the patient has at [facility]3]. We will continue to taper prednisone down. We will continue with inhaled corticosteroids and long-acting beta-2 agonist inhalers. We will continue with deep venous thrombosis and gastrointestinal prophylaxes, ceftriaxone, azithromycin and HAART medication. I will touch base with the patient as to whether she would consent to bronchoscopy. We are waiting for SHAZIA screen. Her rheumatoid factor appears to be positive, thus her pulmonary hypertension and ILD appears to be multifactorial, even though possibility of false positive rheumatoid screen is there, provided patient has active infection and human immunodeficiency virus. Addendum: spoke with patient-->refused bronchoscopy. Patient presently appears capable to make her own decision. Addendum: In the mid afternoon, ANIMAL NUTRITIONIST was called for acute change in mental status /AMS: ABG showed moderate c02 retention with acute respiratory acidosis, normoxia-->transfered to ICU, BPAP / applied (altered, but alert enough to cooperate with BPAP), will repeat ABG in an hour. CTH--no ICH, CXR--no acute/ new findings, improved, ammonia level is pending, EKG--no ischemic changes and no chest pain prior to ANIMAL NUTRITIONIST, blood glucose 118, EEG ordered, neuro service was made aware. Addendum: ABG 7.32/45 on 01/31, will increase to 14/6 ccm time 40 min Rip Castillo MD [facility]
[2017-11-07 14:55] LABS: ARTERIAL BLOOD GAS HCO3 23.1 mmol/L (21-28); ARTERIAL BLOOD GAS HEMOGLOBIN 13.5 g/dL (11.7-17.4); ARTERIAL BLOOD GAS O2 CAPACITY 18.4 mL/dl (16-24); ARTERIAL BLOOD GAS O2 CONTENT 18.2 ML/dl (15-23); ARTERIAL BLOOD GAS O2 SAT 99.1 % (95-98); ARTERIAL BLOOD GAS PCO2 47 mm/Hg (35-45); ARTERIAL BLOOD GAS TCO2 24.5 mmol.L (22-28)
[2017-11-07] MEDS ORDERED: Valproate 1,000 MG in Sodium Chloride 0.9% 100 ML IVPB ONE (14:56)
--- NOTE | 2017-11-07 15:25 | CARD ---
APPROVED REPORT Date of service: 11/07/2017 EKG Measurement Heart [id number] <Conclusion> Normal sinus rhythm Left axis deviation Prolonged QT Abnormal ECG
--- NOTE | 2017-11-07 15:36 | CT ---
Date of service: 11/07/2017 PROCEDURE: CT HEAD WITHOUT CONTRAST. HISTORY: AMS COMPARISON: 11/01/2017 TECHNIQUE: Axial computed tomography images were obtained through the head/brain without intravenous contrast. Radiation dose: Total exam DLP = 861 mGy-cm. This CT exam was performed using one or more of the following dose reduction techniques: Automated exposure control, adjustment of the mA and/or kV according to patient size, and/or use of iterative reconstruction technique. FINDINGS: HEMORRHAGE: No intracranial hemorrhage. BRAIN: No mass effect or edema. No atrophy or chronic microvascular ischemic changes. VENTRICLES: Unremarkable. No hydrocephalus. CALVARIUM: Unremarkable. PARANASAL SINUSES: Unremarkable as visualized. No significant inflammatory changes. MASTOID AIR CELLS: Unremarkable as visualized. No inflammatory changes. OTHER FINDINGS: None. IMPRESSION: No acute findings
--- NOTE | 2017-11-07 15:42 | RAD ---
Date of service: 11/07/2017 HISTORY: SOB COMPARISON: 11/06/2017 FINDINGS: LUNGS: Slight improvement in right lower lobe infiltrate. No change in remaining interstitial pattern PLEURA: No significant pleural effusion identified, no pneumothorax apparent. CARDIOVASCULAR: Mild cardiomegaly OSSEOUS STRUCTURES: No significant abnormalities. VISUALIZED UPPER ABDOMEN: Normal. OTHER FINDINGS: None. IMPRESSION: Slight improvement in right lower lobe infiltrate. No change in remaining interstitial pattern
--- NOTE | 2017-11-07 15:50 | CP.PCM.CON ---
History of Present Illness - History of Present Illness History of Present Illness: 62 yr old woman with HIV on truvada, pulmonary fibrosis, HTN, smoker 1/2 ppd , who was admitted with pneumonia, and was admitted to [facility] with a change in mental status. On admission, the family reports that the patient was slurring speech, stating words out of order, and was generally confused, adn as she lives alone, she was not noted to have an acute change. However, she has been slower and more fatigued. She was diagnosed with HIV about 15 years ago, viral load <20, CD 4 count 355. Miss gomez had MRI brain with contrast completed, normal, and has been okay until earlier today when she had a rapid response where she became unresponsive, and was transferred to ICU. on my exam in ICU, she is responding slowly to commands, ROS: positive for fevers, weakness, shortness of breath, and productive cough with yellow sputum. Denied chills, chest pain, vision changes, changes in bowel/ bladder habits, or new rashes. [place] [facility] [place]hx: HIV on Truvada, emphysema, pulmonary fibrosis, HTN PSurgHx: denies Allergies: NKDA Social: 1/2 ppd since age 16, denies EtOH and substance abuse Fam hx: ?thyroid disease Home meds: Truvada, Isentress, Clonidine, Advair, Ventolin, Buproprion, Elavil, Ensure, Megace as [place] [facility] [place] exam: awake, obtunded. PERRL. EOMI. +dolls +corneals, +gag. sticks out tongue when asked, grimaces to sternal rub. motor: 4/5 bilaterally limited by effort. No verbal output. sensory: not accurate. +1 dtr ul and ll bl. Toes downgoing. No clonus. Past Patient History - Infectious Disease Hx of Infectious Diseases: None - Past Social History Smoking Status: Light Smoker < 10 Cigarettes Daily - CARDIAC Hx Cardiac Disorders: Yes - PULMONARY Hx Chronic Obstructive Pulmonary Disease (COPD): Yes - NEUROLOGICAL Hx Neurological Disorder: No - HEMATOLOGICAL/ONCOLOGICAL Hx Human Immunodeficiency Virus (HIV): Yes - MUSCULOSKELETAL/RHEUMATOLOGICAL Hx Falls: Yes - PSYCHIATRIC Hx Substance Use: No - SURGICAL HISTORY Hx Surgeries: No - ANESTHESIA Hx Anesthesia: No Meds Allergies/Adverse Reactions: Allergies Allergy/AdvReac Type Severity Reaction Status Date / Time No Known Allergies Allergy Verified 11/01/17 12:29 - Medications Medications: Current Medications Albuterol/Ipratropium (Duoneb 3 Mg/0.5 Mg (3 Ml) Ud) 3 ml IH [id number] PRN PRN Reason: Wheezing Amitriptyline HCl (Elavil) 100 mg PO DAILY [facility] Last Admin: 11/07/17 11:53 Dose: 100 mg Arformoterol Tartrate (Brovana) 15 mcg IH [id number] [facility] Last Admin: 11/07/17 07:50 Dose: Not Given Aspirin (Aspirin Chewable) 81 mg PO DAILY [facility] Last Admin: 11/07/17 11:53 Dose: 81 mg Atorvastatin Calcium (Lipitor) 40 mg PO DIN [facility] Last Admin: 11/06/17 17:55 Dose: 40 mg Budesonide (Pulmicort Respules) 0.5 mg IH [id number] [facility] Last Admin: 11/07/17 07:50 Dose: Not Given Bupropion HCl (Wellbutrin Sr 150 Mg) 150 mg PO DAILY [facility] Last Admin: 11/07/17 11:55 Dose: 150 mg Clonidine HCl (Catapres) 0.3 mg PO TID [facility] Last Admin: 11/07/17 11:53 Dose: 0.3 mg Emtricitabine/Tenofovir (Truvada 200 Mg-300 Mg) 1 tab PO DAILY [facility] PRN Reason: Protocol Last Admin: 11/07/17 11:52 Dose: 1 tab Heparin Sodium (Porcine) (Heparin) 5,000 units SC Q8 KARYN PRN Reason: Protocol Last Admin: 11/07/17 05:12 Dose: Not Given Ceftriaxone Sodium (Rocephin 2 Gm Ivpb) 2 gm in 100 mls @ 100 mls/hr IVPB 0000, 1200 [facility] PRN Reason: Protocol Last Admin: 11/07/17 11:40 Dose: 100 mls/hr Azithromycin (Zithromax 500mg In Ns) 500 mg in 250 mls @ 167 mls/hr IVPB DAILY [facility]N PRN Reason: Protocol Last Admin: 11/07/17 11:55 Dose: 167 mls/hr Trimethoprim/Sulfamethoxazole (300 mg/ Dextrose) 500 mls @ 250 mls/hr IVPB Q8 KARYN PRN Reason: Protocol Last Admin: 11/07/17 14:15 Dose: 250 mls/hr Valproate Sodium 1,000 mg/ (Sodium Chloride) 110 mls @ 100 mls/hr IVPB ONCE ONE Stop: 11/07/17 16:01 Ibuprofen (Motrin Tab) 800 mg PO TID PRN PRN Reason: Pain, moderate (4-7) Megestrol Acetate (Megace) 400 mg PO DAILY [facility] Last Admin: 11/07/17 11:52 Dose: 400 mg Methylprednisolone (Solu-Medrol) 20 mg IVP Q12H [facility] Last Admin: 11/07/17 11:52 Dose: 20 mg Pantoprazole Sodium (Protonix Ec Tab) 40 mg PO 0600 [facility] Last Admin: 11/07/17 05:12 Dose: 40 mg Raltegravir (Isentress) 400 mg PO BID [facility] PRN Reason: Protocol Last Admin: 11/07/17 11:53 Dose: 400 mg Results - Vital Signs Recent Vital Signs: Last Vital Signs Temp 98.3 F 11/07/17 06:00 Pulse 66 11/07/17 11:53 Resp 18 11/07/17 06:00 BP 128/64 11/07/17 11:53 Pulse Ox 96 11/07/17 06:00 - Labs Result Diagrams: 11/07/17 15:52 11/07/17 15:52 Labs: Laboratory Results - last 24 hr 11/02/17 11/06/17 11/07/17 12:06 10:30 07:30 WBC RBC Hgb Hct MCV MCH MCHC RDW Plt Count MPV Gran % Lymph % (Auto) [place] % (Auto) Eos % (Auto) Baso % (Auto) Gran # Lymph # (Auto) [place] # (Auto) Eos # (Auto) Baso # (Auto) pCO2 pO2 HCO3 ABG pH ABG Total CO2 ABG O2 Saturation ABG O2 Content ABG Base Excess ABG Hemoglobin ABG Carboxyhemoglobin POC ABG HHb (Measured) ABG Methemoglobin ABG O2 Capacity Hgb O2 Saturation FiO2 Sodium 133 Potassium 4.3 Chloride 101 Carbon Dioxide 28 Anion Gap 8 L BUN 17 Creatinine 0.8 Est GFR ( Amer) > 60 Est GFR (Non-Af Amer) > 60 POC Glucose (mg/dL) Random Glucose 74 Calcium 8.6 Total Bilirubin 0.5 AST 22 ALT 18 Alkaline Phosphatase 73 Total Protein 6.9 Albumin 2.8 L Globulin 4.2 Albumin/Globulin Ratio 0.7 L Rheumatoid Arth Interp Positive H SHAZIA 6 Profile Negative Beta-(1,3)-D-Glucan <31 B-(1,3)-D-Glucan Intrp Negative 11/07/17 11/07/17 11/07/17 07:45 14:36 14:45 WBC 7.5 RBC 4.60 Hgb 13.7 Hct 42.4 MCV 92.2 MCH 29.8 MCHC 32.3 RDW 14.7 H Plt Count 197 MPV 9.5 Gran % 50.5 Lymph % (Auto) 40.5 H [place] % (Auto) 8.6 H Eos % (Auto) 0.3 L Baso % (Auto) 0.1 Gran # 3.77 Lymph # (Auto) 3.0 [place] # (Auto) 0.6 Eos # (Auto) 0.0 Baso # (Auto) 0.01 pCO2 47 H pO2 102.0 H HCO3 23.1 ABG pH 7.30 L ABG Total CO2 24.5 ABG O2 Saturation 99.1 H ABG O2 Content 18.2 ABG Base Excess -3.6 L ABG Hemoglobin 13.5 ABG Carboxyhemoglobin 2.7 H POC ABG HHb (Measured) 0.9 ABG Methemoglobin 0.9 ABG O2 Capacity 18.4 Hgb O2 Saturation 95.5 FiO2 40.0 Sodium Potassium Chloride Carbon Dioxide Anion Gap BUN Creatinine Est GFR ( Amer) Est GFR (Non-Af Amer) POC Glucose (mg/dL) 118 H Random Glucose Calcium Total Bilirubin AST ALT Alkaline Phosphatase Total Protein Albumin Globulin Albumin/Globulin Ratio Rheumatoid Arth Interp SHAZIA 6 Profile Beta-(1,3)-D-Glucan B-(1,3)-D-Glucan Intrp Assessment & Plan - Assessment and Plan (Free Text) Assessment: 62 yr old woman with HIV and change in mental status that may be explained by seizure. I would recommend VIdeo eeg to clarify this event, for 24 hours, and this will also elucidate if the patient has herpetic encephalitis. Stroke does not appear likely in light of patients exam. plan: 1. Video eeg for 24 hours. 2. Continue acyclovir Thank you for consulting neurology. Dr. nancy French
[2017-11-07 15:55] LABS: EOS % 0.1 % (1.5-5.0); GRAN # 7.09 (1.4-6.5); GRAN % 81.7 % (50.0-68.0); HEMOGLOBIN 13.8 g/dL (12.0-16.0); LYMPH # 1.2 (1.2-3.4); LYMPH % 14.2 % (22.0-35.0); MEAN CELL VOLUME 93.4 fl (80.0-105.0); MEAN CORPUSCULAR HEMOGLOBIN 30.3 pg (25.0-35.0); MEAN CORPUSCULAR HGB CONC 32.5 g/dl (31.0-37.0); MEAN PLATELET VOLUME 9.3 fl (7.0-11.0); MONO # 0.4 (0.1-0.6); RBC 4.55 10^6/uL (3.5-6.1); RED CELL DISTRIBUTION WIDTH 14.9 % (11.5-14.5); WHITE BLOOD COUNT 8.7 10^3/ul (4.5-11.0)
[2017-11-07 16:08] LABS: ALB/GLOB RATIO 0.7 (1.1-1.8); ALBUMIN 2.9 g/dL (3.0-4.8); ALT/SGPT 20 U/L (7-56); AST/SGOT 18 U/L (14-36); BLOOD UREA NITROGEN 23 mg/dL (7-21); CALCIUM 8.4 mg/dL (8.4-10.5); GFR NON-AFRICAN AMERICAN 56
[2017-11-07 16:18] LABS: TROPONIN I 0.01 ng/mL
--- NOTE | 2017-11-07 16:23 | PCM.RRT ---
<Karley Traylor - Last Filed: 11/07/17 22:03> [employer] Nurse Assessment - Situation Date: 11/07/17 Time CREW FOREMAN was called: 14:33 CREW [employer]EMAN Responder Arrival Time: 14:34 CREW [employer]EMAN Location:: [address] [place] [address] Room Number: 578-2 [employer] Reason for Call: Change in Mental Status [employer]W FOREMAN Called By: Other Disciplines (Physical Therapy) - IV IV Inserted during CREW FOREMAN?: No IV Fluids Initiated During CREW FOREMAN?: not indicated - Respiratory Oxygen Delivery Method: Nasal Cannula @L/min Oxygen Flow Rate: 5 Received Nebulizer Treatments:: No Was the Patient Ventilated with Bag/Mask 100% O2?: No Secretions Suctioned?: No Was the Patient Intubated?: No Was the Patient Placed on a Ventilator?: No - Medication Medications Administered During CREW FOREMAN: none indicated - Diagnostic Test Ordered EKG: Yes (NSR, LAD, prolonged QTc (471), no ST elevations, no T wave inversions) Chest X-Ray: Yes (RLL infiltrate improving) CT Scan: Yes (head- no acute abnormalities) - Stat Labs Ordered CREW FOREMAN Stat Labs Ordered: CBC (wnl), TROPONIN (0.01), ABG (pH 7.30, pO2 102, pCO2 47) CREW FOREMAN Other Labs Ordered: CMP wnl CPR started during CREW FOREMAN?: No - Vital Signs Vital Sign: BP 105/76 HR 99 RR 20 O2 87% RA-->86% on 5L NC T 98.2 (oral) - Finger Stick Blood Glucose Finger Stick Blood Glucose: 118 - Stuart Coma Scale Coma Scale Eye Opening: To verbal stimuli Coma Scale Motor: Withdraw response to pain Coma Scale Verbal: No response - Time CREW FOREMAN Ended Time CREW FOREMAN Ended: 15:15 - Vital Signs at end of CREW FOREMAN Vital Signs at end of CREW FOREMAN: 101/74 HR 87 RR 20 O2 100% on 5L NC - Recommendations 5) CREW FOREMAN Level of Care Recommendations: Transfer to ICU Notifications: Attending Physician, Consultations (ICU, neurology) I.Reason for CREW FOREMAN - A) Acute Change in Patient: (Select all that apply): Acute change in mental status (unresponsive) - Neurological Status (Select all that apply): Lethargic - Respiratory Oxygen Delivery Method: Nasal Cannula @L/min (5) - Constitutional Appears: Non-toxic, No Acute Distress, Older Than Stated Age Additional Comments: severely obtunded - Head Head Exam: ATRAUMATIC, NORMAL INSPECTION, NORMOCEPHALIC - Eyes Additional Comments: pinpoint pupils reactive - Respiratory Exam Respiratory Exam: Clear to Ausculation Bilateral Additional comments: increased respiratory effort - Cardiovascular Exam Cardiovascular Exam: REGULAR RHYTHM, +S1, +S2 - GI/Abdominal Exam GI & Abdominal Exam: Soft - Neurological Exam Neurological Exam: Altered - Extremities Exam Extremities Exam: Normal Inspection. absent: Pedal Edema Plan - Assessment of Findings&Treatment Plan PT was evaluating patient, and she suddenly became unresponsive. Rapid response was called. Patient had eye closed lying on the bed. She did not respond to verbal commands. She responded with facial grimace and slight eye opening to sternal rub. Vitals were within normal limits except O2 sat was decreased to 87 % on room air. Patient was given NC 5L and saturation increased to 100%. BG was 118. No trauma/lesions observed on patient. Heart sounds were regular with normal rhythm. Stat 12-lead EKG did not show any acute changes. Lungs were clear to auscultation bilaterally. Stat CXR was negative. ABG showed mild respiratory acidosis. ICU consult was called and patient was accepted to the unit. CT head was unremarkable. Patient's nurse denied any new medications. He denied that the patient had any visitors today. <Abraham May - Last Filed: 11/08/17 08:10> [employer]AN Nurse Assessment - Vital Signs Vital Sign: Rapid Response Vital Sign Blood Pressure 105/76 Pulse Rate 94 Respiratory Rate 16 Temperature 98.2 F Oxygen Saturation 87 - Vital Signs at end of CREW FOREMAN Vital Signs at end of CREW FOREMAN: Rapid Response End Vital Sign Blood Pressure 101/74 Pulse Rate 87 Respiratory Rate 20 Temperature 98.2 F O2 Sat by Pulse Oximetry 100 Attending/Attestation - Attestation I have personally seen and examined this patient.: Yes I have fully participated in the care of the patient.: Yes I have reviewed all pertinent clinical information, including history, physical exam and plan: Yes Notes (Text): 11/07/17 see progress note
[2017-11-07] MEDS ORDERED: levETIRAcetam 1,000 MG in Sodium Chloride 0.9% 100 ML IV STA (16:26)
[2017-11-07 17:12] LABS: ARTERIAL BLOOD GAS HCO3 23.2 mmol/L (21-28); ARTERIAL BLOOD GAS O2 SAT 98.8 % (95-98); ARTERIAL BLOOD GAS PCO2 45 mm/Hg (35-45); ARTERIAL BLOOD GAS PH 7.32 (7.35-7.45); ARTERIAL BLOOD GAS TCO2 24.6 mmol.L (22-28)
[2017-11-07 19:11] LABS: OPIATES, UR NEGATIVE (NEGATIVE); PHENCYCLIDINE, UR NEGATIVE (NEGATIVE)
[2017-11-07 19:13] LABS: BARBITURATES, UR NEGATIVE (NEGATIVE); BENZODIAZEPINES, UR NEGATIVE (NEGATIVE)
--- NOTE | 2017-11-07 19:41 | CP.PCM.PN ---
Subjective - Date & Time of Evaluation Date of Evaluation: 11/07/17 Time of Evaluation: 12:45 - Subjective Subjective: Patient was seen earlier today after lunch time, no fevers, feeling better, no nausea, no diarrhea, breathing better. Objective - Vital Signs/Intake and Output Vital Signs (last 24 hours): Temp Pulse Resp BP Pulse Ox 98.3 F 66 18 128/64 96 11/07/17 06:00 11/07/17 06:00 11/07/17 06:00 11/07/17 06:00 11/07/17 06:00 Intake and Output: 11/07/17 11/07/17 06:59 18:59 Intake Total 840 Balance 840 - Medications Medications: Current Medications Albuterol/Ipratropium (Duoneb 3 Mg/0.5 Mg (3 Ml) Ud) 3 ml IH [id number] PRN PRN Reason: Wheezing Amitriptyline HCl (Elavil) 100 mg PO DAILY [facility] Last Admin: 11/06/17 10:56 Dose: 100 mg Arformoterol Tartrate (Brovana) 15 mcg IH [id number] [facility] Last Admin: 11/07/17 07:50 Dose: Not Given Aspirin (Aspirin Chewable) 81 mg PO DAILY [facility] Last Admin: 11/06/17 10:56 Dose: 81 mg Atorvastatin Calcium (Lipitor) 40 mg PO DIN [facility] Last Admin: 11/06/17 17:55 Dose: 40 mg Budesonide (Pulmicort Respules) 0.5 mg IH [id number] [facility] Last Admin: 11/07/17 07:50 Dose: Not Given Bupropion HCl (Wellbutrin Sr 150 Mg) 150 mg PO DAILY [facility] Last Admin: 11/06/17 10:56 Dose: 150 mg Clonidine HCl (Catapres) 0.3 mg PO TID [facility] Last Admin: 11/06/17 17:55 Dose: 0.3 mg Emtricitabine/Tenofovir (Truvada 200 Mg-300 Mg) 1 tab PO DAILY [facility] PRN Reason: Protocol Last Admin: 11/06/17 10:56 Dose: 1 tab Heparin Sodium (Porcine) (Heparin) 5,000 units SC Q8 KARYN PRN Reason: Protocol Last Admin: 11/07/17 05:12 Dose: Not Given Ceftriaxone Sodium (Rocephin 2 Gm Ivpb) 2 gm in 100 mls @ 100 mls/hr IVPB 0000, 1200 [facility] PRN Reason: Protocol Last Admin: 11/07/17 01:27 Dose: 100 mls/hr Azithromycin (Zithromax 500mg In Ns) 500 mg in 250 mls @ 167 mls/hr IVPB DAILY [facility] PRN Reason: Protocol Last Admin: 11/06/17 10:56 Dose: 167 mls/hr Trimethoprim/Sulfamethoxazole (300 mg/ Dextrose) 500 mls @ 250 mls/hr IVPB Q8 KARYN PRN Reason: Protocol Last Admin: 11/07/17 05:11 Dose: 250 mls/hr Ibuprofen (Motrin Tab) 800 mg PO TID PRN PRN Reason: Pain, moderate (4-7) Megestrol Acetate (Megace) 400 mg PO DAILY [facility] Last Admin: 11/06/17 10:56 Dose: 400 mg Methylprednisolone (Solu-Medrol) 40 mg IVP Q12H [facility] Last Admin: 11/06/17 23:25 Dose: 40 mg Pantoprazole Sodium (Protonix Ec Tab) 40 mg PO 0600 [facility] Last Admin: 11/07/17 05:12 Dose: 40 mg Raltegravir (Isentress) 400 mg PO BID [facility] PRN Reason: Protocol Last Admin: 11/06/17 17:55 Dose: 400 mg - Labs Labs: 11/07/17 07:45 11/07/17 07:30 - Constitutional Appears: Chronically Ill - Head Exam Head Exam: NORMAL INSPECTION - Respiratory Exam Respiratory Exam: Decreased Breath Sounds - Cardiovascular Exam Cardiovascular Exam: +S1, +S2 - GI/Abdominal Exam GI & Abdominal Exam: Soft. absent: Tenderness Assessment and Plan - Assessment and Plan (Free Text) Plan: Assessment sepsis from acute bacterial pneumonia, R/O PJP in this patient with chronic HIV infection, R/O TB acute meningitis R/O viral emphysema and pulmonary fibrosis Plan follow up final culture results follow up sputum AFB x 3 and Quantiferon TB test continue Rocephin, Zithromax and IV Bactrim day 6 - follow up Fungitell will continue to monitor clinically continue ART follow up final CSF work up results including HSV PCR; CSF crypt Ag is negative , pending CSF VDRL - continue Acyclovir for now
--- NOTE | 2017-11-07 22:18 | CP.PCM.PN ---
<Carrington Churchill - Last Filed: 11/07/17 22:40> Subjective - Date & Time of Evaluation Date of Evaluation: 11/07/17 Time of Evaluation: 08:00 - Subjective Subjective: Pt seen and examined at bedside. Pt on TB isolation. Objective - Vital Signs/Intake and Output Vital Signs (last 24 hours): Temp Pulse Resp BP Pulse Ox 98.3 F 78 27 H 135/84 100 11/07/17 06:00 11/07/17 20:20 11/07/17 18:30 11/07/17 18:00 11/07/17 18:30 Intake and Output: 11/07/17 11/08/17 18:59 06:59 Output Total 200 Balance -200 - Medications Medications: Current Medications Albuterol/Ipratropium (Duoneb 3 Mg/0.5 Mg (3 Ml) Ud) 3 ml IH [id number] PRN PRN Reason: Wheezing Amitriptyline HCl (Elavil) 100 mg PO DAILY [facility] Last Admin: 11/07/17 11:53 Dose: 100 mg Arformoterol Tartrate (Brovana) 15 mcg IH [id number] [facility] Last Admin: 11/07/17 20:15 Dose: 15 mcg Aspirin (Aspirin Chewable) 81 mg PO DAILY [facility] Last Admin: 11/07/17 11:53 Dose: 81 mg Atorvastatin Calcium (Lipitor) 40 mg PO DIN [facility] Last Admin: 11/07/17 17:37 Dose: Not Given Budesonide (Pulmicort Respules) 0.5 mg IH [id number] [facility] Last Admin: 11/07/17 20:15 Dose: 0.5 mg Bupropion HCl (Wellbutrin Sr 150 Mg) 150 mg PO DAILY [facility] Last Admin: 11/07/17 11:55 Dose: 150 mg Clonidine HCl (Catapres) 0.3 mg PO TID [facility] Last Admin: 11/07/17 18:22 Dose: Not Given Emtricitabine/Tenofovir (Truvada 200 Mg-300 Mg) 1 tab PO DAILY [facility] PRN Reason: Protocol Last Admin: 11/07/17 11:52 Dose: 1 tab Heparin Sodium (Porcine) (Heparin) 5,000 units SC Q8 KARYN PRN Reason: Protocol Last Admin: 11/07/17 17:44 Dose: 5,000 units Ceftriaxone Sodium (Rocephin 2 Gm Ivpb) 2 gm in 100 mls @ 100 mls/hr IVPB 0000, 1200 KARYN PRN Reason: Protocol Last Admin: 11/07/17 11:40 Dose: 100 mls/hr Azithromycin (Zithromax 500mg In Ns) 500 mg in 250 mls @ 167 mls/hr IVPB DAILY KARYN PRN Reason: Protocol Last Admin: 11/07/17 11:55 Dose: 167 mls/hr Trimethoprim/Sulfamethoxazole (300 mg/ Dextrose) 500 mls @ 250 mls/hr IVPB Q8 KARYN PRN Reason: Protocol Last Admin: 11/07/17 18:16 Dose: 250 mls/hr Acyclovir 600 mg/ Sodium (Chloride) 100 mls @ 100 mls/hr IV Q8 KARYN PRN Reason: Protocol Ibuprofen (Motrin Tab) 800 mg PO TID PRN PRN Reason: Pain, moderate (4-7) Megestrol Acetate (Megace) 400 mg PO DAILY [facility] Last Admin: 11/07/17 11:52 Dose: 400 mg Methylprednisolone (Solu-Medrol) 20 mg IVP Q12H [facility] Last Admin: 11/07/17 11:52 Dose: 20 mg Pantoprazole Sodium (Protonix Ec Tab) 40 mg PO 0600 [facility] Last Admin: 11/07/17 05:12 Dose: 40 mg Raltegravir (Isentress) 400 mg PO BID KARYN PRN Reason: Protocol Last Admin: 11/07/17 18:22 Dose: Not Given - Labs Labs: 11/07/17 15:52 11/07/17 15:52 - Constitutional Appears: In Acute Distress - Head Exam Head Exam: ATRAUMATIC - ENT Exam ENT Exam: Mucous Membranes Moist - Respiratory Exam Respiratory Exam: Wheezes, NORMAL BREATHING PATTERN. absent: Respiratory Distress, Stridor - Cardiovascular Exam Cardiovascular Exam: RRR, +S1, +S2 - GI/Abdominal Exam GI & Abdominal Exam: Distended, Soft - Extremities Exam Extremities Exam: Full ROM - Neurological Exam Neurological Exam: Alert, Awake, Oriented x3 - Psychiatric Exam Psychiatric exam: Normal Affect, Normal Mood - Skin Skin Exam: Dry, Intact, Warm Assessment and Plan - Assessment and Plan (Free Text) Assessment: Pt is a 62 yo female with a PMH of HIV, emphysema, and pulmonary fibrosis, who presented to the ED with 2 days of AMS Plan: Pneumonia - Blood cultures: no growth - ID: [email or web address] continue Rocephin 2 gram IVPB Q12 Zithromax 500mg IVPB Daily Bactrim IVPB 300mg Q8 - Pulm Litinski: pt has CAP, TB isolation due to HIV and COPD. Rheumatoid screen. - Cryptococcal Ag not detected - CD4: 164, CD8: 441 - quantiferon TB test -indeterminate - Viral Load HIV RNA 4.16 - Beta D Glucan: negative - VDRL pending - AFB x 1 collected, waiting for results AMS - repeat episode 11-07-17 - Repeat head CT negative for acute changes - rapid response called today - pt transferred to ICU - UDS positive for methadone - MRI: punctate infarct right temporal lobe, 3mm in size - ASA - statin - LP: shows no evidence of meningitis - continue Neuro checks - ECHO: 65% EF, Severe Tricuspid regurgitation, Severe Pulmonary Hypertension - HSV negative viral cultures, will discontinue Acyclovir - Neuro: French following Pulm HTN, Pulm fibrosis - pt would benefit from a Right Heart Cath as an out pt -Pulm: Brovana and steroids HIV - continue truvada - continue reltegravir Pt seen, examined, assessment and plan discussed with Dr May. Carrington Churchill <Abraham May - Last Filed: 11/08/17 08:17> Objective - Vital Signs/Intake and Output Vital Signs (last 24 hours): Temp Pulse Resp BP Pulse Ox 98.3 F 88 27 H 135/84 100 11/07/17 06:00 11/08/17 06:00 11/07/17 18:30 11/07/17 18:00 11/07/17 18:30 Intake and Output: 11/08/17 11/08/17 06:59 18:59 Intake Total 800 Output Total 1825 Balance -1025 - Medications Medications: Current Medications Albuterol/Ipratropium (Duoneb 3 Mg/0.5 Mg (3 Ml) Ud) 3 ml IH [id number] PRN PRN Reason: Wheezing Amitriptyline HCl (Elavil) 100 mg PO DAILY [facility] Last Admin: 11/07/17 11:53 Dose: 100 mg Arformoterol Tartrate (Brovana) 15 mcg IH [id number] KARYN Last Admin: 11/08/17 07:58 Dose: 15 mcg Aspirin (Aspirin Chewable) 81 mg PO DAILY [facility] Last Admin: 11/07/17 11:53 Dose: 81 mg Atorvastatin Calcium (Lipitor) 40 mg PO DIN [facility] Last Admin: 11/07/17 17:37 Dose: Not Given Budesonide (Pulmicort Respules) 0.5 mg IH [id number] [facility] Last Admin: 11/08/17 07:59 Dose: 0.5 mg Bupropion HCl (Wellbutrin Sr 150 Mg) 150 mg PO DAILY [facility] Last Admin: 11/07/17 11:55 Dose: 150 mg Clonidine HCl (Catapres) 0.3 mg PO TID [facility] Last Admin: 11/07/17 18:22 Dose: Not Given Emtricitabine/Tenofovir (Truvada 200 Mg-300 Mg) 1 tab PO DAILY [facility] PRN Reason: Protocol Last Admin: 11/07/17 11:52 Dose: 1 tab Heparin Sodium (Porcine) (Heparin) 5,000 units SC Q8 [facility] PRN Reason: Protocol Last Admin: 11/08/17 05:41 Dose: 5,000 units Ceftriaxone Sodium (Rocephin 2 Gm Ivpb) 2 gm in 100 mls @ 100 mls/hr IVPB 0000, 1200 [facility] PRN Reason: Protocol Last Admin: 11/08/17 00:07 Dose: 100 mls/hr Azithromycin (Zithromax 500mg In Ns) 500 mg in 250 mls @ 167 mls/hr IVPB DAILY [facility] PRN Reason: Protocol Last Admin: 11/07/17 11:55 Dose: 167 mls/hr Trimethoprim/Sulfamethoxazole (300 mg/ Dextrose) 500 mls @ 250 mls/hr IVPB Q8 [facility] PRN Reason: Protocol Last Admin: 11/08/17 05:42 Dose: 250 mls/hr Acyclovir 600 mg/ Sodium (Chloride) 100 mls @ 100 mls/hr IV Q8 [facility] PRN Reason: Protocol Last Admin: 11/08/17 05:42 Dose: 100 mls/hr Ibuprofen (Motrin Tab) 800 mg PO TID PRN PRN Reason: Pain, moderate (4-7) Megestrol Acetate (Megace) 400 mg PO DAILY [facility] Last Admin: 11/07/17 11:52 Dose: 400 mg Methylprednisolone (Solu-Medrol) 20 mg IVP Q12H [facility] Last Admin: 11/07/17 22:54 Dose: 20 mg Pantoprazole Sodium (Protonix Ec Tab) 40 mg PO 0600 [facility] Last Admin: 11/08/17 05:42 Dose: 40 mg Raltegravir (Isentress) 400 mg PO BID [facility] PRN Reason: Protocol Last Admin: 11/07/17 18:22 Dose: Not Given - Labs Labs: 11/08/17 06:00 11/08/17 06:00 Attending/Attestation - Attestation I have personally seen and examined this patient.: Yes I have fully participated in the care of the patient.: Yes I have reviewed all pertinent clinical information, including history, physical exam and plan: Yes Notes (Text): 11/07/17 62 year old female with past medical history of HIV, pulmonary fibrosis and emphysema who presented with altered mental status, which later resolved. Patient is s/p LP without evidence of bacterial meningitis. CT head was negative. MRI brain showed punctate right temporal lobe infarct. Repeat MRI brain was negative. Patient is on aspirin and statin. Initial CXR showed left upper lobe interstitial infiltrate and minimal interstitial infiltrate in right lower lobe. Continue with antibiotics as per ID. Patient is pending AFB x 3 however had been unable to provide sample. Today she was able to provide one sample. Will discuss with pulmonary and ID. Quantiferon study was indeterminate. Patient is currently on rochepin, azithromycin, bactrim, iv steroids and acyclovir. Severe pulmonary hypertension was noted on echocardiogram. Pulmonary and cardiology recommended outpatient pulmonary follow up and right heart cath. This afternoon patient had [employer] for altered mental status with decreased responsiveness. Repeat CT head is negative. Repeat CXR shows improvement of right side process. Utox is ordered. ABG showed mild CO2 retention 47 with PH 7.3. Case discussed with Dr. Castillo who will monitor in ICU with bipap and serial ABGs. Case discussed with neurology who recommended dose of depakoate and EEG / video EEG. Abraham May MD Hospitalist.
[2017-11-08] MEDS: cefTRIAXone 2 GM IN NS 2 GM/100 ML BAG IVPB SCH (00:07)
[2017-11-08] MEDS: Pantoprazole 40 mg EC Tab PO SCH (05:42)
[2017-11-08] MEDS: Sulfamethoxazole/Trimethoprim 300 MG in Dextrose 5% In Water 500 ML IVPB SCH (05:42)
[2017-11-08 06:55] LABS: BASO # 0.01 K/mm3 (0.0-2.0); BASO % 0.1 % (0.0-3.0); GRAN # 4.99 (1.4-6.5); GRAN % 74.5 % (50.0-68.0); HEMOGLOBIN 14.8 g/dL (12.0-16.0); LYMPH # 1.2 (1.2-3.4); LYMPH % 18.5 % (22.0-35.0); MEAN CORPUSCULAR HEMOGLOBIN 29.7 pg (25.0-35.0); MEAN CORPUSCULAR HGB CONC 31.9 g/dl (31.0-37.0); MEAN PLATELET VOLUME 9.7 fl (7.0-11.0); MONO # 0.5 (0.1-0.6); MONO % 6.9 % (1.0-6.0); RBC 4.99 10^6/uL (3.5-6.1); RED CELL DISTRIBUTION WIDTH 14.9 % (11.5-14.5); WHITE BLOOD COUNT 6.7 10^3/ul (4.5-11.0)
[2017-11-08 07:18] LABS: ALB/GLOB RATIO 0.7 (1.1-1.8); ALBUMIN 2.9 g/dL (3.0-4.8); ALT/SGPT 23 U/L (7-56); AST/SGOT 26 U/L (14-36); BLOOD UREA NITROGEN 18 mg/dL (7-21); CALCIUM 8.5 mg/dL (8.4-10.5); GFR NON-AFRICAN AMERICAN > 60
[2017-11-08] MEDS: Arformoterol 15 mcg/2 ml Inh Sol IH SCH ×2 (07:58→19:26)
[2017-11-08] MEDS: Budesonide 0.5 mg/2 ml Inhal Susp UD IH SCH ×2 (07:59→19:27)
--- NOTE | 2017-11-08 09:05 | CP.CCUPN ---
<Frederick Oneal - Last Filed: 11/08/17 11:17> CCU Subjective - Physician Review Subjective (Free Text): 11/08/17 09:03 Frederick Oneal DO PGY1 - Internal Medicine [employer]st - ICU Progress Note Patient was seen and examined this morning at bedside in ICU She is adamant about signing out AMA; Patient was redirected and explained risks about signing out as well as potential for public health risk as she is a TB r/o. She reports that she is fine and there is nothing wrong with her. 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 She is fixated on not losing her food stamps. On 12 system ROS patient denies all symptoms. CCU Objective - Vital Signs / Intake & Output Vital Signs (Last 4 hours): Vital Signs Pulse Resp BP Pulse Ox 11/08/17 08:30 110 H 22 86 L 11/08/17 08:20 99 H 87 L 11/08/17 08:18 98 H 22 11/08/17 08:11 102 H 60 H 11/08/17 08:10 100 H 24 11/08/17 08:09 103 H 18 11/08/17 08:08 103 H 21 11/08/17 08:07 103 H 47 H 11/08/17 08:06 103 H 35 H 11/08/17 08:05 102 H 22 11/08/17 08:04 102 H 21 11/08/17 08:03 101 H 18 11/08/17 08:02 99 H 21 11/08/17 08:01 141/81 11/08/17 08:00 101 H 22 11/08/17 07:59 98 H 20 11/08/17 07:58 98 H 21 11/08/17 07:57 98 H 17 11/08/17 07:56 100 H 18 11/08/17 07:55 100 H 15 11/08/17 07:54 103 H 21 11/08/17 07:53 102 H 24 11/08/17 07:52 105 H 20 11/08/17 07:50 112 H 79 L 11/08/17 07:40 107 H 17 95 11/08/17 07:30 94 H 21 100 11/08/17 07:20 98 H 21 100 11/08/17 07:10 100 H 22 11/08/17 07:09 102 H 22 09/13/18 07:08 103 H 21 11/08/17 07:07 104 H 21 11/08/17 07:06 106 H 19 11/08/17 07:05 111 H 37 H 11/08/17 07:04 111 H 23 11/08/17 07:03 111 H 11/08/17 07:02 109 H 25 H 11/08/17 07:01 110 H 25 H 11/08/17 07:00 129/84 11/08/17 06:59 109 H 21 11/08/17 06:58 110 H 27 H 11/08/17 06:57 109 H 31 H 11/08/17 06:56 110 H 30 H 11/08/17 06:55 109 H 44 H 11/08/17 06:54 109 H 22 11/08/17 06:53 110 H 11/08/17 06:52 110 H 26 H 11/08/17 06:51 100 H 11/08/17 06:50 95 H 26 H 11/08/17 06:49 95 H 11/08/17 06:48 95 H 26 H 11/08/17 06:00 88 Intake and Output (Last 8hrs): Intake & Output 11/07/17 11/08/17 11/08/17 22:59 06:59 14:59 Intake Total 800 Output Total 200 1625 Balance -200 -825 Intake: IV 800 Left Forearm 800 Output: Urine 200 1625 Urethral (Lama) 200 1625 Other: # Bowel Movements 0 - Physical Exam Head: Positive for: Atraumatic, Normocephalic Pupils: Positive for: PERRL Extroacular Muscles: Positive for: EOMI Conjunctiva: Positive for: Normal Neck: Positive for: Normal Range of Motion. Negative for: Meningeal Signs, JVD Respiratory/Chest: Positive for: Other (Complete L air acevedo w/ ronchi, crackles, wheezes; poor airmovement. Some minor crackling in RML/RLL ). Negative for: Clear to Auscultation, Good Air Exchange, Respiratory Distress, Accessory Muscle Use Cardiovascular: Positive for: Regular Rate and Rhythm, Normal S1, S2, Tachycardic. Negative for: Murmurs Abdomen: Positive for: Normal Bowel Sounds. Negative for: Tenderness, Distention, Peritoneal Signs, Rebound, Guarding Back: Positive for: Normal Inspection. Negative for: CVA Tenderness Upper Extremity: Positive for: Normal Inspection. Negative for: Cyanosis, Edema , Swelling Lower Extremity: Positive for: NORMAL PULSES, Capillary Refill < 2 s. Negative for: Edema, CALF TENDERNESS, Tenderness Neurological: Positive for: GCS=15, CN II-XII Intact Skin: Positive for: Warm, Dry, Normal Color. Negative for: Rashes Psychiatric: Positive for: Alert, Oriented x 3, Normal Concentration, Other ( Patient has poor insight into condition; does not believe she is ill; ) - Medications Active Medications: Active Medications Generic Name Dose Route Start Last Admin Trade Name Freq PRN Reason Stop Dose Admin Albuterol/Ipratropium 3 ml 11/02/17 08:21 Duoneb 3 Mg/0.5 Mg (3 Ml) Ud IH [id number] PRN Wheezing Amitriptyline HCl 100 mg 11/02/17 10:00 11/07/17 11:53 Elavil PO 100 mg DAILY KARYN Administration Arformoterol Tartrate 15 mcg 11/02/17 20:00 11/08/17 07:58 Brovana IH 15 mcg [id number] KARYN Administration Aspirin 81 mg 11/05/17 10:00 11/07/17 11:53 Aspirin Chewable PO 81 mg DAILY KARYN Administration Atorvastatin Calcium 40 mg 11/04/17 17:00 11/07/17 17:37 Lipitor PO Not Given DIN KARYN Budesonide 0.5 mg 11/02/17 20:00 11/08/17 07:59 Pulmicort Respules IH 0.5 mg [id number] KARYN Administration Bupropion HCl 150 mg 11/02/17 10:00 11/07/17 11:55 Wellbutrin Sr 150 Mg PO 150 mg DAILY KARYN Administration Clonidine HCl 0.3 mg 11/02/17 10:00 11/07/17 18:22 Catapres PO Not Given TID KARYN Emtricitabine/Tenofovir 1 tab 11/02/17 10:00 11/07/17 11:52 Truvada 200 Mg-300 Mg PO 1 tab DAILY KARYN Administration Protocol Heparin Sodium (Porcine) 5,000 units 11/02/17 14:00 11/08/17 05:41 Heparin SC 5,000 units Q8 KARYN Administration Protocol Ceftriaxone Sodium 2 gm in 100 mls @ 100 mls/hr 11/03/17 08:02 11/08/17 00:07 Rocephin 2 Gm Ivpb IVPB 100 mls/hr 0000,1200 KARYN Administration Protocol Azithromycin 500 mg in 250 mls @ 167 mls/hr 11/03/17 15:00 11/07/17 11:55 Zithromax 500mg In Ns IVPB 167 mls/hr DAILY KARYN Administration Protocol Trimethoprim/Sulfamethoxazole 500 mls @ 250 mls/hr 11/04/17 14:00 11/08/17 05 :42 300 mg/ Dextrose IVPB 250 mls/hr Q8 KARYN Administration Protocol Acyclovir 600 mg/ Sodium 100 mls @ 100 mls/hr 11/07/17 22:00 11/08/17 05:42 Chloride IV 100 mls/hr Q8 KARYN Administration Protocol Ibuprofen 800 mg 11/02/17 08:30 Motrin Tab PO TID PRN Pain, moderate (4-7) Megestrol Acetate 400 mg 11/02/17 10:00 11/07/17 11:52 Megace PO 400 mg DAILY KARYN Administration Methylprednisolone 20 mg 11/07/17 10:45 11/07/17 22:54 Solu-Medrol IVP 20 mg Q12H KARYN Administration Pantoprazole Sodium 40 mg 11/05/17 06:00 11/08/17 05:42 Protonix Ec Tab PO 40 mg 0600 KARYN Administration Raltegravir 400 mg 11/02/17 10:00 11/07/17 18:22 Isentress PO Not Given BID [facility] Protocol - Patient Studies Lab Studies: Lab Studies 11/08/17 11/08/17 11/08/17 Range/Units 06:00 06:00 06:00 WBC 6.7 D (4.5-11.0) 10^3/ul RBC 4.99 (3.5-6.1) 10^6/uL Hgb 14.8 (12.0-16.0) g/dL Hct 46.4 (36.0-48.0) % MCV 93.0 (80.0-105.0) fl MCH 29.7 (25.0-35.0) pg MCHC 31.9 (31.0-37.0) g/dl RDW 14.9 H (11.5-14.5) % Plt Count 191 (120.0-450.0) 10^3/uL MPV 9.7 (7.0-11.0) fl Gran % 74.5 H (50.0-68.0) % Lymph % (Auto) 18.5 L (22.0-35.0) % Collier % (Auto) 6.9 H (1.0-6.0) % Eos % (Auto) 0.0 L (1.5-5.0) % Baso % (Auto) 0.1 (0.0-3.0) % Gran # 4.99 (1.4-6.5) Lymph # (Auto) 1.2 (1.2-3.4) Collier # (Auto) 0.5 (0.1-0.6) Eos # (Auto) 0.0 (0.0-0.7) Baso # (Auto) 0.01 (0.0-2.0) K/mm3 pCO2 (35-45) mm/Hg pO2 (80-100) mm/Hg HCO3 (21-28) mmol/L ABG pH (7.35-7.45) ABG Total CO2 (22-28) mmol.L ABG O2 Saturation (95-98) % ABG O2 Content (15-23) ML/dl ABG Base Excess (-2.0-3.0) mmol/L ABG Hemoglobin (11.7-17.4) g/dL ABG Carboxyhemoglobin (0.5-1.5) % POC ABG HHb (Measured) (0-5) % ABG Methemoglobin (0.0-3.0) % ABG O2 Capacity (16-24) mL/dl ABG Potassium (3.6-5.2) mmol/L Hgb O2 Saturation (95.0-98.0) % Glucose (65-105) mg/dl Lactate (0.7-2.1) mmol/L FiO2 % Inspiratory BiPAP Sodium 133 (132-148) mmol/L Potassium 4.5 (3.6-5.0) mmol/L Chloride 100 (98-107) mmol/L Carbon Dioxide 27 (21-33) mmol/L Anion Gap 10 (10-20) BUN 18 (7-21) mg/dL Creatinine 0.7 (0.7-1.2) mg/dl Est GFR ( Amer) > 60 Est GFR (Non-Af Amer) > 60 POC Glucose (mg/dL) (65-110) mg/dL Random Glucose 134 H (70-110) mg/dL Calcium 8.5 (8.4-10.5) mg/dL Phosphorus 2.8 (2.5-4.5) mg/dL Magnesium 1.9 (1.7-2.2) mg/dL Total Bilirubin 0.4 (0.2-1.3) mg/dL AST 26 (14-36) U/L ALT 23 (7-56) U/L Alkaline Phosphatase 71 (38-126) U/L Ammonia < 9 L (9-33) umol/L Troponin I ng/mL Total Protein 7.2 (5.8-8.3) g/dL Albumin 2.9 L (3.0-4.8) g/dL Globulin 4.3 gm/dL Albumin/Globulin Ratio 0.7 L (1.1-1.8) Arterial Blood Potassium (3.6-5.2) mmol/L Urine Opiates Screen (NEGATIVE) Urine Methadone Screen (NEGATIVE) Ur Barbiturates Screen (NEGATIVE) Ur Phencyclidine Scrn (NEGATIVE) Ur Amphetamines Screen (NEGATIVE) U Benzodiazepines Scrn (NEGATIVE) U Oth Cocaine Metabols (NEGATIVE) U Cannabinoids Screen (NEGATIVE) SHAZIA 6 Profile (NEGATIVE) 11/07/17 11/07/17 11/07/17 Range/Units 18:47 17:00 15:52 WBC (4.5-11.0) 10^3/ul RBC (3.5-6.1) 10^6/uL Hgb (12.0-16.0) g/dL Hct (36.0-48.0) % MCV (80.0-105.0) fl MCH (25.0-35.0) pg MCHC (31.0-37.0) g/dl RDW (11.5-14.5) % Plt Count (120.0-450.0) 10^3/uL MPV (7.0-11.0) fl Gran % (50.0-68.0) % Lymph % (Auto) (22.0-35.0) % Collier % (Auto) (1.0-6.0) % Eos % (Auto) (1.5-5.0) % Baso % (Auto) (0.0-3.0) % Gran # (1.4-6.5) Lymph # (Auto) (1.2-3.4) Collier # (Auto) (0.1-0.6) Eos # (Auto) (0.0-0.7) Baso # (Auto) (0.0-2.0) K/mm3 pCO2 45 (35-45) mm/Hg pO2 109.0 H (80-100) mm/Hg HCO3 23.2 (21-28) mmol/L ABG pH 7.32 L (7.35-7.45) ABG Total CO2 24.6 (22-28) mmol.L ABG O2 Saturation 98.8 H (95-98) % ABG O2 Content (15-23) ML/dl ABG Base Excess -3.1 L (-2.0-3.0) mmol/L ABG Hemoglobin (11.7-17.4) g/dL ABG Carboxyhemoglobin (0.5-1.5) % POC ABG HHb (Measured) (0-5) % ABG Methemoglobin (0.0-3.0) % ABG O2 Capacity (16-24) mL/dl ABG Potassium 4.4 (3.6-5.2) mmol/L Hgb O2 Saturation (95.0-98.0) % Glucose 107 H (65-105) mg/dl Lactate 0.7 (0.7-2.1) mmol/L FiO2 35.0 % Inspiratory BiPAP 12 Sodium 134.0 134 (132-148) mmol/L Potassium 4.7 (3.6-5.0) mmol/L Chloride 106.0 102 (98-107) mmol/L Carbon Dioxide 26 (21-33) mmol/L Anion Gap 11 (10-20) BUN 23 H (7-21) mg/dL Creatinine 1.0 (0.7-1.2) mg/dl Est GFR ( Amer) > 60 Est GFR (Non-Af Amer) 56 POC Glucose (mg/dL) (65-110) mg/dL Random Glucose 109 (70-110) mg/dL Calcium 8.4 (8.4-10.5) mg/dL Phosphorus (2.5-4.5) mg/dL Magnesium (1.7-2.2) mg/dL Total Bilirubin 0.3 (0.2-1.3) mg/dL AST 18 (14-36) U/L ALT 20 (7-56) U/L Alkaline Phosphatase 73 (38-126) U/L Ammonia (9-33) umol/L Troponin I 0.01 D ng/mL Total Protein 7.2 (5.8-8.3) g/dL Albumin 2.9 L (3.0-4.8) g/dL Globulin 4.3 gm/dL Albumin/Globulin Ratio 0.7 L (1.1-1.8) Arterial Blood Potassium 4.4 (3.6-5.2) mmol/L Urine Opiates Screen Negative (NEGATIVE) Urine Methadone Screen Positive H (NEGATIVE) Ur Barbiturates Screen Negative (NEGATIVE) Ur Phencyclidine Scrn Negative (NEGATIVE) Ur Amphetamines Screen Negative (NEGATIVE) U Benzodiazepines Scrn Negative (NEGATIVE) U Oth Cocaine Metabols Negative (NEGATIVE) U Cannabinoids Screen Negative (NEGATIVE) SHAZIA 6 Profile (NEGATIVE) 11/07/17 11/07/17 11/07/17 Range/Units 15:52 14:45 14:36 WBC 8.7 (4.5-11.0) 10^3/ul RBC 4.55 (3.5-6.1) 10^6/uL Hgb 13.8 (12.0-16.0) g/dL Hct 42.5 (36.0-48.0) % MCV 93.4 (80.0-105.0) fl MCH 30.3 (25.0-35.0) pg MCHC 32.5 (31.0-37.0) g/dl RDW 14.9 H (11.5-14.5) % Plt Count 196 (120.0-450.0) 10^3/uL MPV 9.3 (7.0-11.0) fl Gran % 81.7 H (50.0-68.0) % Lymph % (Auto) 14.2 L (22.0-35.0) % Collier % (Auto) 4.0 (1.0-6.0) % Eos % (Auto) 0.1 L (1.5-5.0) % Baso % (Auto) 0.0 (0.0-3.0) % Gran # 7.09 H (1.4-6.5) Lymph # (Auto) 1.2 (1.2-3.4) Collier # (Auto) 0.4 (0.1-0.6) Eos # (Auto) 0.0 (0.0-0.7) Baso # (Auto) 0.00 (0.0-2.0) K/mm3 pCO2 47 H (35-45) mm/Hg pO2 102.0 H (80-100) mm/Hg HCO3 23.1 (21-28) mmol/L ABG pH 7.30 L (7.35-7.45) ABG Total CO2 24.5 (22-28) mmol.L ABG O2 Saturation 99.1 H (95-98) % ABG O2 Content 18.2 (15-23) ML/dl ABG Base Excess -3.6 L (-2.0-3.0) mmol/L ABG Hemoglobin 13.5 (11.7-17.4) g/dL ABG Carboxyhemoglobin 2.7 H (0.5-1.5) % POC ABG HHb (Measured) 0.9 (0-5) % ABG Methemoglobin 0.9 (0.0-3.0) % ABG O2 Capacity 18.4 (16-24) mL/dl ABG Potassium (3.6-5.2) mmol/L Hgb O2 Saturation 95.5 (95.0-98.0) % Glucose (65-105) mg/dl Lactate (0.7-2.1) mmol/L FiO2 40.0 % Inspiratory BiPAP Sodium (132-148) mmol/L Potassium (3.6-5.0) mmol/L Chloride (98-107) mmol/L Carbon Dioxide (21-33) mmol/L Anion Gap (10-20) BUN (7-21) mg/dL Creatinine (0.7-1.2) mg/dl Est GFR ( Amer) Est GFR (Non-Af Amer) POC Glucose (mg/dL) 118 H (65-110) mg/dL Random Glucose (70-110) mg/dL Calcium (8.4-10.5) mg/dL Phosphorus (2.5-4.5) mg/dL Magnesium (1.7-2.2) mg/dL Total Bilirubin (0.2-1.3) mg/dL AST (14-36) U/L ALT (7-56) U/L Alkaline Phosphatase (38-126) U/L Ammonia (9-33) umol/L Troponin I ng/mL Total Protein (5.8-8.3) g/dL Albumin (3.0-4.8) g/dL Globulin gm/dL Albumin/Globulin Ratio (1.1-1.8) Arterial Blood Potassium (3.6-5.2) mmol/L Urine Opiates Screen (NEGATIVE) Urine Methadone Screen (NEGATIVE) Ur Barbiturates Screen (NEGATIVE) Ur Phencyclidine Scrn (NEGATIVE) Ur Amphetamines Screen (NEGATIVE) U Benzodiazepines Scrn (NEGATIVE) U Oth Cocaine Metabols (NEGATIVE) U Cannabinoids Screen (NEGATIVE) SHAZIA 6 Profile (NEGATIVE) 11/06/17 Range/Units 10:30 WBC (4.5-11.0) 10^3/ul RBC (3.5-6.1) 10^6/uL Hgb (12.0-16.0) g/dL Hct (36.0-48.0) % MCV (80.0-105.0) fl MCH (25.0-35.0) pg MCHC (31.0-37.0) g/dl RDW (11.5-14.5) % Plt Count (120.0-450.0) 10^3/uL MPV (7.0-11.0) fl Gran % (50.0-68.0) % Lymph % (Auto) (22.0-35.0) % Collier % (Auto) (1.0-6.0) % Eos % (Auto) (1.5-5.0) % Baso % (Auto) (0.0-3.0) % Gran # (1.4-6.5) Lymph # (Auto) (1.2-3.4) Collier # (Auto) (0.1-0.6) Eos # (Auto) (0.0-0.7) Baso # (Auto) (0.0-2.0) K/mm3 pCO2 (35-45) mm/Hg pO2 (80-100) mm/Hg HCO3 (21-28) mmol/L ABG pH (7.35-7.45) ABG Total CO2 (22-28) mmol.L ABG O2 Saturation (95-98) % ABG O2 Content (15-23) ML/dl ABG Base Excess (-2.0-3.0) mmol/L ABG Hemoglobin (11.7-17.4) g/dL ABG Carboxyhemoglobin (0.5-1.5) % POC ABG HHb (Measured) (0-5) % ABG Methemoglobin (0.0-3.0) % ABG O2 Capacity (16-24) mL/dl ABG Potassium (3.6-5.2) mmol/L Hgb O2 Saturation (95.0-98.0) % Glucose (65-105) mg/dl Lactate (0.7-2.1) mmol/L FiO2 % Inspiratory BiPAP Sodium (132-148) mmol/L Potassium (3.6-5.0) mmol/L Chloride (98-107) mmol/L Carbon Dioxide (21-33) mmol/L Anion Gap (10-20) BUN (7-21) mg/dL Creatinine (0.7-1.2) mg/dl Est GFR ( Amer) Est GFR (Non-Af Amer) POC Glucose (mg/dL) (65-110) mg/dL Random Glucose (70-110) mg/dL Calcium (8.4-10.5) mg/dL Phosphorus (2.5-4.5) mg/dL Magnesium (1.7-2.2) mg/dL Total Bilirubin (0.2-1.3) mg/dL AST (14-36) U/L ALT (7-56) U/L Alkaline Phosphatase (38-126) U/L Ammonia (9-33) umol/L Troponin I ng/mL Total Protein (5.8-8.3) g/dL Albumin (3.0-4.8) g/dL Globulin gm/dL Albumin/Globulin Ratio (1.1-1.8) Arterial Blood Potassium (3.6-5.2) mmol/L Urine Opiates Screen (NEGATIVE) Urine Methadone Screen (NEGATIVE) Ur Barbiturates Screen (NEGATIVE) Ur Phencyclidine Scrn (NEGATIVE) Ur Amphetamines Screen (NEGATIVE) U Benzodiazepines Scrn (NEGATIVE) U Oth Cocaine Metabols (NEGATIVE) U Cannabinoids Screen (NEGATIVE) SHAZIA 6 Profile Negative (NEGATIVE) Laboratory Results - last 24 hr 11/06/17 11/07/17 11/07/17 10:30 14:36 14:45 WBC RBC Hgb Hct MCV MCH MCHC RDW Plt Count MPV Gran % Lymph % (Auto) Collier % (Auto) Eos % (Auto) Baso % (Auto) Gran # Lymph # (Auto) Collier # (Auto) Eos # (Auto) Baso # (Auto) pCO2 47 H pO2 102.0 H HCO3 23.1 ABG pH 7.30 L ABG Total CO2 24.5 ABG O2 Saturation 99.1 H ABG O2 Content 18.2 ABG Base Excess -3.6 L ABG Hemoglobin 13.5 ABG Carboxyhemoglobin 2.7 H POC ABG HHb (Measured) 0.9 ABG Methemoglobin 0.9 ABG O2 Capacity 18.4 ABG Potassium Hgb O2 Saturation 95.5 Glucose Lactate FiO2 40.0 Inspiratory BiPAP Sodium Potassium Chloride Carbon Dioxide Anion Gap BUN Creatinine Est GFR ( Amer) Est GFR (Non-Af Amer) POC Glucose (mg/dL) 118 H Random Glucose Calcium Phosphorus Magnesium Total Bilirubin AST ALT Alkaline Phosphatase Ammonia Troponin I Total Protein Albumin Globulin Albumin/Globulin Ratio Arterial Blood Potassium Urine Opiates Screen Urine Methadone Screen Ur Barbiturates Screen Ur Phencyclidine Scrn Ur Amphetamines Screen U Benzodiazepines Scrn U Oth Cocaine Metabols U Cannabinoids Screen SHAZIA 6 Profile Negative 11/07/17 11/07/17 11/07/17 15:52 15:52 17:00 WBC 8.7 RBC 4.55 Hgb 13.8 Hct 42.5 MCV 93.4 MCH 30.3 MCHC 32.5 RDW 14.9 H Plt Count 196 MPV 9.3 Gran % 81.7 H Lymph % (Auto) 14.2 L Collier % (Auto) 4.0 Eos % (Auto) 0.1 L Baso % (Auto) 0.0 Gran # 7.09 H Lymph # (Auto) 1.2 Collier # (Auto) 0.4 Eos # (Auto) 0.0 Baso # (Auto) 0.00 pCO2 45 pO2 109.0 H HCO3 23.2 ABG pH 7.32 L ABG Total CO2 24.6 ABG O2 Saturation 98.8 H ABG O2 Content ABG Base Excess -3.1 L ABG Hemoglobin ABG Carboxyhemoglobin POC ABG HHb (Measured) ABG Methemoglobin ABG O2 Capacity ABG Potassium 4.4 Hgb O2 Saturation Glucose 107 H Lactate 0.7 FiO2 35.0 Inspiratory BiPAP 12 Sodium 134 134.0 Potassium 4.7 Chloride 102 106.0 Carbon Dioxide 26 Anion Gap 11 BUN 23 H Creatinine 1.0 Est GFR ( Amer) > 60 Est GFR (Non-Af Amer) 56 POC Glucose (mg/dL) Random Glucose 109 Calcium 8.4 Phosphorus Magnesium Total Bilirubin 0.3 AST 18 ALT 20 Alkaline Phosphatase 73 Ammonia Troponin I 0.01 D Total Protein 7.2 Albumin 2.9 L Globulin 4.3 Albumin/Globulin Ratio 0.7 L Arterial Blood Potassium 4.4 Urine Opiates Screen Urine Methadone Screen Ur Barbiturates Screen Ur Phencyclidine Scrn Ur Amphetamines Screen U Benzodiazepines Scrn U Oth Cocaine Metabols U Cannabinoids Screen SHAZIA 6 Profile 11/07/17 11/08/17 11/08/17 18:47 06:00 06:00 WBC 6.7 D RBC 4.99 Hgb 14.8 Hct 46.4 MCV 93.0 MCH 29.7 MCHC 31.9 RDW 14.9 H Plt Count 191 MPV 9.7 Gran % 74.5 H Lymph % (Auto) 18.5 L Collier % (Auto) 6.9 H Eos % (Auto) 0.0 L Baso % (Auto) 0.1 Gran # 4.99 Lymph # (Auto) 1.2 Collier # (Auto) 0.5 Eos # (Auto) 0.0 Baso # (Auto) 0.01 pCO2 pO2 HCO3 ABG pH ABG Total CO2 ABG O2 Saturation ABG O2 Content ABG Base Excess ABG Hemoglobin ABG Carboxyhemoglobin POC ABG HHb (Measured) ABG Methemoglobin ABG O2 Capacity ABG Potassium Hgb O2 Saturation Glucose Lactate FiO2 Inspiratory BiPAP Sodium Potassium Chloride Carbon Dioxide Anion Gap BUN Creatinine Est GFR ( Amer) Est GFR (Non-Af Amer) POC Glucose (mg/dL) Random Glucose Calcium Phosphorus Magnesium Total Bilirubin AST ALT Alkaline Phosphatase Ammonia < 9 L Troponin I Total Protein Albumin Globulin Albumin/Globulin Ratio Arterial Blood Potassium Urine Opiates Screen Negative Urine Methadone Screen Positive H Ur Barbiturates Screen Negative Ur Phencyclidine Scrn Negative Ur Amphetamines Screen Negative U Benzodiazepines Scrn Negative U Oth Cocaine Metabols Negative U Cannabinoids Screen Negative SHAZIA 6 Profile 11/08/17 06:00 WBC RBC Hgb Hct MCV MCH MCHC RDW Plt Count MPV Gran % Lymph % (Auto) Collier % (Auto) Eos % (Auto) Baso % (Auto) Gran # Lymph # (Auto) Collier # (Auto) Eos # (Auto) Baso # (Auto) pCO2 pO2 HCO3 ABG pH ABG Total CO2 ABG O2 Saturation ABG O2 Content ABG Base Excess ABG Hemoglobin ABG Carboxyhemoglobin POC ABG HHb (Measured) ABG Methemoglobin ABG O2 Capacity ABG Potassium Hgb O2 Saturation Glucose Lactate FiO2 Inspiratory BiPAP Sodium 133 Potassium 4.5 Chloride 100 Carbon Dioxide 27 Anion Gap 10 BUN 18 Creatinine 0.7 Est GFR ( Amer) > 60 Est GFR (Non-Af Amer) > 60 POC Glucose (mg/dL) Random Glucose 134 H Calcium 8.5 Phosphorus 2.8 Magnesium 1.9 Total Bilirubin 0.4 AST 26 ALT 23 Alkaline Phosphatase 71 Ammonia Troponin I Total Protein 7.2 Albumin 2.9 L Globulin 4.3 Albumin/Globulin Ratio 0.7 L Arterial Blood Potassium Urine Opiates Screen Urine Methadone Screen Ur Barbiturates Screen Ur Phencyclidine Scrn Ur Amphetamines Screen U Benzodiazepines Scrn U Oth Cocaine Metabols U Cannabinoids Screen SHAZIA 6 Profile EKG/Cardiology Studies: Cardiology / EKG Studies 11/07/17 14:45 EKG [ELECTROCARDIOGRAM] Stat Comment: Reason For Exam: low BP lethargic Fingerstick Blood Sugar Results: 186 Review of Systems - Review of Systems All systems: reviewed and no additional remarkable complaints except Review of Systems: as per HPI Critical Care Progress Note - Nutrition Nutrition: Nutrition Category Date Time Status Heart Healthy Diet [DIET] Diets 11/08/17 Breakfast Active Assessment/Plan - Assessment and Plan (Free Text) Assessment: 62F PMH HIV+ on HAART (Tcell 355); adm 11/01 for 2 days of AMS; ML 2/2 PNA (Tb vs PCP vs MAC) ACTUARIAL TRAINEE called for AMS 11/07 PM; ABG showed mild CO2 retention w/ acute respiratory acidosis and normoxia. Patient subsequently put on BiPAP and sent to ICU Neuro: Patient mental status much improved Now AAO3; No s/s of FND Does not recall events prior to rapid response R/o encephalitis, viral meningitis - Lymphocytes on CSF, Protein + Glucose wnl, HSV negative, Cryptocous negative Empiric Acyclovir started 24HR EEG started yesterday; Prelim read negative; no SZ like activity overnight 1000mg Keppra loaded yesterday Cont monitoring neuro status Reorient as needed Pulm: Patient is satting well on room air; RR 17 CT Chest - Diffuse interstitial infiltrate or pulmonary fibrosis in the left upper lobe. More focal area of consolidation or scarring and volume loss in the superior segment of the left lower lobe. There are also some bulla contiguous with the consolidation. Evidence of emphysema in both upper lobes COPD + Pulm Fibrosis - [place], Aformoterol, Budesonide, Solumedrol 20 Q12 Pulm HTN - Cont monitoring PNA - ProCal negative; however must r/o TB vs Mac vs PCP ; Abx below Sputum cultures Q8; Completed Quantiferon indeterminate CXR shows improving RLL infiltrate as of 11/08 Cardio: No chest pain, tachycardic overnight BP 110-141/ 70-80 Maintain MAP >65 Nephro/ : BUN/Cr - 18/0.7 Good urine output ID: C/w Rocephin C/w Acyclovir C/w Azithromycin C/w Bactrim Truvada 200-300 Isentress 400 TB r/o as above Meningitis / Encephalitis work up as above Blood Cx negative @ 5 days DVT/GI PPX: Heparin 5000 Q8, Protonix Patient was seen examined and discussed w/ attending physician Dr. Maldonado Oneal DO PGY1 Internal Medicine [employer] Analyst Pager [phone] - Date & Time Date: 11/08/17 Time: 11:23 <Austin Okeefe - Last Filed: 11/08/17 12:55> CCU Objective - Vital Signs / Intake & Output Vital Signs (Last 4 hours): Vital Signs Pulse BP 11/08/17 10:50 94 H 110/70 Intake and Output (Last 8hrs): Intake & Output 11/07/17 11/08/17 11/08/17 22:59 06:59 14:59 Intake Total 800 Output Total 200 1625 Balance -200 -825 Intake: IV 800 Left Forearm 800 Output: Urine 200 1625 Urethral (Lama) 200 1625 Other: # Bowel Movements 0 - Medications Active Medications: Active Medications Generic Name Dose Route Start Last Admin Trade Name Freq PRN Reason Stop Dose Admin Albuterol/Ipratropium 3 ml 11/02/17 08:21 Duoneb 3 Mg/0.5 Mg (3 Ml) Ud IH [id number] PRN Wheezing Amitriptyline HCl 100 mg 11/02/17 10:00 11/08/17 09:50 Elavil PO 100 mg DAILY KARYN Administration Arformoterol Tartrate 15 mcg 11/02/17 20:00 11/08/17 07:58 Brovana IH 15 mcg [id number] KARYN Administration Aspirin 81 mg 11/05/17 10:00 11/08/17 09:50 Aspirin Chewable PO 81 mg DAILY KARYN Administration Atorvastatin Calcium 40 mg 11/04/17 17:00 11/07/17 17:37 Lipitor PO Not Given DIN KARYN Budesonide 0.5 mg 11/02/17 20:00 11/08/17 07:59 Pulmicort Respules IH 0.5 mg [id number] KARYN Administration Bupropion HCl 150 mg 11/02/17 10:00 11/08/17 09:50 Wellbutrin Sr 150 Mg PO 150 mg DAILY KARYN Administration Clonidine HCl 0.3 mg 11/02/17 10:00 11/08/17 10:50 Catapres PO Not Given TID KARYN Emtricitabine/Tenofovir 1 tab 11/02/17 10:00 11/08/17 09:58 Truvada 200 Mg-300 Mg PO 1 tab DAILY KARYN Administration Protocol Heparin Sodium (Porcine) 5,000 units 11/02/17 14:00 11/08/17 05:41 Heparin SC 5,000 units Q8 KARYN Administration Protocol Ceftriaxone Sodium 2 gm in 100 mls @ 100 mls/hr 11/03/17 08:02 11/08/17 00:07 Rocephin 2 Gm Ivpb IVPB 100 mls/hr 0000,1200 KARYN Administration Protocol Azithromycin 500 mg in 250 mls @ 167 mls/hr 11/03/17 15:00 11/08/17 09:51 Zithromax 500mg In Ns IVPB 167 mls/hr DAILY KARYN Administration Protocol Trimethoprim/Sulfamethoxazole 500 mls @ 250 mls/hr 11/04/17 14:00 11/08/17 05 :42 300 mg/ Dextrose IVPB 250 mls/hr Q8 KARYN Administration Protocol Acyclovir 600 mg/ Sodium 100 mls @ 100 mls/hr 11/07/17 22:00 11/08/17 05:42 Chloride IV 100 mls/hr Q8 KARYN Administration Protocol Ibuprofen 800 mg 11/02/17 08:30 Motrin Tab PO TID PRN Pain, moderate (4-7) Megestrol Acetate 400 mg 11/02/17 10:00 11/08/17 09:50 Megace PO 400 mg DAILY KARYN Administration Methylprednisolone 20 mg 11/07/17 10:45 11/08/17 09:54 Solu-Medrol IVP 20 mg Q12H KARYN Administration Pantoprazole Sodium 40 mg 11/05/17 06:00 11/08/17 05:42 Protonix Ec Tab PO 40 mg 0600 KARYN Administration Raltegravir 400 mg 11/02/17 10:00 11/08/17 09:58 Isentress PO 400 mg BID KARYN Administration Protocol - Patient Studies Lab Studies: Lab Studies 11/08/17 11/08/17 11/08/17 Range/Units 06:00 06:00 06:00 WBC 6.7 D (4.5-11.0) 10^3/ul RBC 4.99 (3.5-6.1) 10^6/uL Hgb 14.8 (12.0-16.0) g/dL Hct 46.4 (36.0-48.0) % MCV 93.0 (80.0-105.0) fl MCH 29.7 (25.0-35.0) pg MCHC 31.9 (31.0-37.0) g/dl RDW 14.9 H (11.5-14.5) % Plt Count 191 (120.0-450.0) 10^3/uL MPV 9.7 (7.0-11.0) fl Gran % 74.5 H (50.0-68.0) % Lymph % (Auto) 18.5 L (22.0-35.0) % Collier % (Auto) 6.9 H (1.0-6.0) % Eos % (Auto) 0.0 L (1.5-5.0) % Baso % (Auto) 0.1 (0.0-3.0) % Gran # 4.99 (1.4-6.5) Lymph # (Auto) 1.2 (1.2-3.4) Collier # (Auto) 0.5 (0.1-0.6) Eos # (Auto) 0.0 (0.0-0.7) Baso # (Auto) 0.01 (0.0-2.0) K/mm3 pCO2 (35-45) mm/Hg pO2 (80-100) mm/Hg HCO3 (21-28) mmol/L ABG pH (7.35-7.45) ABG Total CO2 (22-28) mmol.L ABG O2 Saturation (95-98) % ABG O2 Content (15-23) ML/dl ABG Base Excess (-2.0-3.0) mmol/L ABG Hemoglobin (11.7-17.4) g/dL ABG Carboxyhemoglobin (0.5-1.5) % POC ABG HHb (Measured) (0-5) % ABG Methemoglobin (0.0-3.0) % ABG O2 Capacity (16-24) mL/dl ABG Potassium (3.6-5.2) mmol/L Hgb O2 Saturation (95.0-98.0) % Glucose (65-105) mg/dl Lactate (0.7-2.1) mmol/L FiO2 % Inspiratory BiPAP Sodium 133 (132-148) mmol/L Potassium 4.5 (3.6-5.0) mmol/L Chloride 100 (98-107) mmol/L Carbon Dioxide 27 (21-33) mmol/L Anion Gap 10 (10-20) BUN 18 (7-21) mg/dL Creatinine 0.7 (0.7-1.2) mg/dl Est GFR ( Amer) > 60 Est GFR (Non-Af Amer) > 60 POC Glucose (mg/dL) (65-110) mg/dL Random Glucose 134 H (70-110) mg/dL Calcium 8.5 (8.4-10.5) mg/dL Phosphorus 2.8 (2.5-4.5) mg/dL Magnesium 1.9 (1.7-2.2) mg/dL Total Bilirubin 0.4 (0.2-1.3) mg/dL AST 26 (14-36) U/L ALT 23 (7-56) U/L Alkaline Phosphatase 71 (38-126) U/L Ammonia < 9 L (9-33) umol/L Troponin I ng/mL Total Protein 7.2 (5.8-8.3) g/dL Albumin 2.9 L (3.0-4.8) g/dL Globulin 4.3 gm/dL Albumin/Globulin Ratio 0.7 L (1.1-1.8) Arterial Blood Potassium (3.6-5.2) mmol/L Urine Opiates Screen (NEGATIVE) Urine Methadone Screen (NEGATIVE) Ur Barbiturates Screen (NEGATIVE) Ur Phencyclidine Scrn (NEGATIVE) Ur Amphetamines Screen (NEGATIVE) U Benzodiazepines Scrn (NEGATIVE) U Oth Cocaine Metabols (NEGATIVE) U Cannabinoids Screen (NEGATIVE) 11/07/17 11/07/17 11/07/17 Range/Units 18:47 17:00 15:52 WBC (4.5-11.0) 10^3/ul RBC (3.5-6.1) 10^6/uL Hgb (12.0-16.0) g/dL Hct (36.0-48.0) % MCV (80.0-105.0) fl MCH (25.0-35.0) pg MCHC (31.0-37.0) g/dl RDW (11.5-14.5) % Plt Count (120.0-450.0) 10^3/uL MPV (7.0-11.0) fl Gran % (50.0-68.0) % Lymph % (Auto) (22.0-35.0) % Collier % (Auto) (1.0-6.0) % Eos % (Auto) (1.5-5.0) % Baso % (Auto) (0.0-3.0) % Gran # (1.4-6.5) Lymph # (Auto) (1.2-3.4) Collier # (Auto) (0.1-0.6) Eos # (Auto) (0.0-0.7) Baso # (Auto) (0.0-2.0) K/mm3 pCO2 45 (35-45) mm/Hg pO2 109.0 H (80-100) mm/Hg HCO3 23.2 (21-28) mmol/L ABG pH 7.32 L (7.35-7.45) ABG Total CO2 24.6 (22-28) mmol.L ABG O2 Saturation 98.8 H (95-98) % ABG O2 Content (15-23) ML/dl ABG Base Excess -3.1 L (-2.0-3.0) mmol/L ABG Hemoglobin (11.7-17.4) g/dL ABG Carboxyhemoglobin (0.5-1.5) % POC ABG HHb (Measured) (0-5) % ABG Methemoglobin (0.0-3.0) % ABG O2 Capacity (16-24) mL/dl ABG Potassium 4.4 (3.6-5.2) mmol/L Hgb O2 Saturation (95.0-98.0) % Glucose 107 H (65-105) mg/dl Lactate 0.7 (0.7-2.1) mmol/L FiO2 35.0 % Inspiratory BiPAP 12 Sodium 134.0 134 (132-148) mmol/L Potassium 4.7 (3.6-5.0) mmol/L Chloride 106.0 102 (98-107) mmol/L Carbon Dioxide 26 (21-33) mmol/L Anion Gap 11 (10-20) BUN 23 H (7-21) mg/dL Creatinine 1.0 (0.7-1.2) mg/dl Est GFR ( Amer) > 60 Est GFR (Non-Af Amer) 56 POC Glucose (mg/dL) (65-110) mg/dL Random Glucose 109 (70-110) mg/dL Calcium 8.4 (8.4-10.5) mg/dL Phosphorus (2.5-4.5) mg/dL Magnesium (1.7-2.2) mg/dL Total Bilirubin 0.3 (0.2-1.3) mg/dL AST 18 (14-36) U/L ALT 20 (7-56) U/L Alkaline Phosphatase 73 (38-126) U/L Ammonia (9-33) umol/L Troponin I 0.01 D ng/mL Total Protein 7.2 (5.8-8.3) g/dL Albumin 2.9 L (3.0-4.8) g/dL Globulin 4.3 gm/dL Albumin/Globulin Ratio 0.7 L (1.1-1.8) Arterial Blood Potassium 4.4 (3.6-5.2) mmol/L Urine Opiates Screen Negative (NEGATIVE) Urine Methadone Screen Positive H (NEGATIVE) Ur Barbiturates Screen Negative (NEGATIVE) Ur Phencyclidine Scrn Negative (NEGATIVE) Ur Amphetamines Screen Negative (NEGATIVE) U Benzodiazepines Scrn Negative (NEGATIVE) U Oth Cocaine Metabols Negative (NEGATIVE) U Cannabinoids Screen Negative (NEGATIVE) 11/07/17 11/07/17 11/07/17 Range/Units 15:52 14:45 14:36 WBC 8.7 (4.5-11.0) 10^3/ul RBC 4.55 (3.5-6.1) 10^6/uL Hgb 13.8 (12.0-16.0) g/dL Hct 42.5 (36.0-48.0) % MCV 93.4 (80.0-105.0) fl MCH 30.3 (25.0-35.0) pg MCHC 32.5 (31.0-37.0) g/dl RDW 14.9 H (11.5-14.5) % Plt Count 196 (120.0-450.0) 10^3/uL MPV 9.3 (7.0-11.0) fl Gran % 81.7 H (50.0-68.0) % Lymph % (Auto) 14.2 L (22.0-35.0) % Collier % (Auto) 4.0 (1.0-6.0) % Eos % (Auto) 0.1 L (1.5-5.0) % Baso % (Auto) 0.0 (0.0-3.0) % Gran # 7.09 H (1.4-6.5) Lymph # (Auto) 1.2 (1.2-3.4) Collier # (Auto) 0.4 (0.1-0.6) Eos # (Auto) 0.0 (0.0-0.7) Baso # (Auto) 0.00 (0.0-2.0) K/mm3 pCO2 47 H (35-45) mm/Hg pO2 102.0 H (80-100) mm/Hg HCO3 23.1 (21-28) mmol/L ABG pH 7.30 L (7.35-7.45) ABG Total CO2 24.5 (22-28) mmol.L ABG O2 Saturation 99.1 H (95-98) % ABG O2 Content 18.2 (15-23) ML/dl ABG Base Excess -3.6 L (-2.0-3.0) mmol/L ABG Hemoglobin 13.5 (11.7-17.4) g/dL ABG Carboxyhemoglobin 2.7 H (0.5-1.5) % POC ABG HHb (Measured) 0.9 (0-5) % ABG Methemoglobin 0.9 (0.0-3.0) % ABG O2 Capacity 18.4 (16-24) mL/dl ABG Potassium (3.6-5.2) mmol/L Hgb O2 Saturation 95.5 (95.0-98.0) % Glucose (65-105) mg/dl Lactate (0.7-2.1) mmol/L FiO2 40.0 % Inspiratory BiPAP Sodium (132-148) mmol/L Potassium (3.6-5.0) mmol/L Chloride (98-107) mmol/L Carbon Dioxide (21-33) mmol/L Anion Gap (10-20) BUN (7-21) mg/dL Creatinine (0.7-1.2) mg/dl Est GFR ( Amer) Est GFR (Non-Af Amer) POC Glucose (mg/dL) 118 H (65-110) mg/dL Random Glucose (70-110) mg/dL Calcium (8.4-10.5) mg/dL Phosphorus (2.5-4.5) mg/dL Magnesium (1.7-2.2) mg/dL Total Bilirubin (0.2-1.3) mg/dL AST (14-36) U/L ALT (7-56) U/L Alkaline Phosphatase (38-126) U/L Ammonia (9-33) umol/L Troponin I ng/mL Total Protein (5.8-8.3) g/dL Albumin (3.0-4.8) g/dL Globulin gm/dL Albumin/Globulin Ratio (1.1-1.8) Arterial Blood Potassium (3.6-5.2) mmol/L Urine Opiates Screen (NEGATIVE) Urine Methadone Screen (NEGATIVE) Ur Barbiturates Screen (NEGATIVE) Ur Phencyclidine Scrn (NEGATIVE) Ur Amphetamines Screen (NEGATIVE) U Benzodiazepines Scrn (NEGATIVE) U Oth Cocaine Metabols (NEGATIVE) U Cannabinoids Screen (NEGATIVE) Laboratory Results - last 24 hr 11/07/17 11/07/17 11/07/17 14:36 14:45 15:52 WBC 8.7 RBC 4.55 Hgb 13.8 Hct 42.5 MCV 93.4 MCH 30.3 MCHC 32.5 RDW 14.9 H Plt Count 196 MPV 9.3 Gran % 81.7 H Lymph % (Auto) 14.2 L Collier % (Auto) 4.0 Eos % (Auto) 0.1 L Baso % (Auto) 0.0 Gran # 7.09 H Lymph # (Auto) 1.2 Collier # (Auto) 0.4 Eos # (Auto) 0.0 Baso # (Auto) 0.00 pCO2 47 H pO2 102.0 H HCO3 23.1 ABG pH 7.30 L ABG Total CO2 24.5 ABG O2 Saturation 99.1 H ABG O2 Content 18.2 ABG Base Excess -3.6 L ABG Hemoglobin 13.5 ABG Carboxyhemoglobin 2.7 H POC ABG HHb (Measured) 0.9 ABG Methemoglobin 0.9 ABG O2 Capacity 18.4 ABG Potassium Hgb O2 Saturation 95.5 Glucose Lactate FiO2 40.0 Inspiratory BiPAP Sodium Potassium Chloride Carbon Dioxide Anion Gap BUN Creatinine Est GFR ( Amer) Est GFR (Non-Af Amer) POC Glucose (mg/dL) 118 H Random Glucose Calcium Phosphorus Magnesium Total Bilirubin AST ALT Alkaline Phosphatase Ammonia Troponin I Total Protein Albumin Globulin Albumin/Globulin Ratio Arterial Blood Potassium Urine Opiates Screen Urine Methadone Screen Ur Barbiturates Screen Ur Phencyclidine Scrn Ur Amphetamines Screen U Benzodiazepines Scrn U Oth Cocaine Metabols U Cannabinoids Screen 11/07/17 11/07/17 11/07/17 15:52 17:00 18:47 WBC RBC Hgb Hct MCV MCH MCHC RDW Plt Count MPV Gran % Lymph % (Auto) Collier % (Auto) Eos % (Auto) Baso % (Auto) Gran # Lymph # (Auto) Collier # (Auto) Eos # (Auto) Baso # (Auto) pCO2 45 pO2 109.0 H HCO3 23.2 ABG pH 7.32 L ABG Total CO2 24.6 ABG O2 Saturation 98.8 H ABG O2 Content ABG Base Excess -3.1 L ABG Hemoglobin ABG Carboxyhemoglobin POC ABG HHb (Measured) ABG Methemoglobin ABG O2 Capacity ABG Potassium 4.4 Hgb O2 Saturation Glucose 107 H Lactate 0.7 FiO2 35.0 Inspiratory BiPAP 12 Sodium 134 134.0 Potassium 4.7 Chloride 102 106.0 Carbon Dioxide 26 Anion Gap 11 BUN 23 H Creatinine 1.0 Est GFR ( Amer) > 60 Est GFR (Non-Af Amer) 56 POC Glucose (mg/dL) Random Glucose 109 Calcium 8.4 Phosphorus Magnesium Total Bilirubin 0.3 AST 18 ALT 20 Alkaline Phosphatase 73 Ammonia Troponin I 0.01 D Total Protein 7.2 Albumin 2.9 L Globulin 4.3 Albumin/Globulin Ratio 0.7 L Arterial Blood Potassium 4.4 Urine Opiates Screen Negative Urine Methadone Screen Positive H Ur Barbiturates Screen Negative Ur Phencyclidine Scrn Negative Ur Amphetamines Screen Negative U Benzodiazepines Scrn Negative U Oth Cocaine Metabols Negative U Cannabinoids Screen Negative 11/08/17 11/08/17 11/08/17 06:00 06:00 06:00 WBC 6.7 D RBC 4.99 Hgb 14.8 Hct 46.4 MCV 93.0 MCH 29.7 MCHC 31.9 RDW 14.9 H Plt Count 191 MPV 9.7 Gran % 74.5 H Lymph % (Auto) 18.5 L Collier % (Auto) 6.9 H Eos % (Auto) 0.0 L Baso % (Auto) 0.1 Gran # 4.99 Lymph # (Auto) 1.2 Collier # (Auto) 0.5 Eos # (Auto) 0.0 Baso # (Auto) 0.01 pCO2 pO2 HCO3 ABG pH ABG Total CO2 ABG O2 Saturation ABG O2 Content ABG Base Excess ABG Hemoglobin ABG Carboxyhemoglobin POC ABG HHb (Measured) ABG Methemoglobin ABG O2 Capacity ABG Potassium Hgb O2 Saturation Glucose Lactate FiO2 Inspiratory BiPAP Sodium 133 Potassium 4.5 Chloride 100 Carbon Dioxide 27 Anion Gap 10 BUN 18 Creatinine 0.7 Est GFR ( Amer) > 60 Est GFR (Non-Af Amer) > 60 POC Glucose (mg/dL) Random Glucose 134 H Calcium 8.5 Phosphorus 2.8 Magnesium 1.9 Total Bilirubin 0.4 AST 26 ALT 23 Alkaline Phosphatase 71 Ammonia < 9 L Troponin I Total Protein 7.2 Albumin 2.9 L Globulin 4.3 Albumin/Globulin Ratio 0.7 L Arterial Blood Potassium Urine Opiates Screen Urine Methadone Screen Ur Barbiturates Screen Ur Phencyclidine Scrn Ur Amphetamines Screen U Benzodiazepines Scrn U Oth Cocaine Metabols U Cannabinoids Screen EKG/Cardiology Studies: Cardiology / EKG Studies 11/07/17 14:45 EKG [ELECTROCARDIOGRAM] Stat Comment: Reason For Exam: low BP lethargic Critical Care Progress Note - Nutrition Nutrition: Nutrition Category Date Time Status Heart Healthy Diet [DIET] Diets 11/08/17 Breakfast Active Assessment/Plan - Assessment and Plan (Free Text) Assessment: Patient seen and examined on rounds, with resident, agree with note with following additions/exceptions: Patient is 62yo female with PMhx of HIV on HAART, COPD, admitted to MICU for PNA and AMS. Currently AAOx3, NAD, afebrile, BP stable, comfortable in NAD Labs, imaging, chart reviewed. VEEG, no seizure like activity as per neurology CT head negative. ID following. PNA AMS, resolved HIV on HAART r/o Meningitis, Encephalitis Recommend: - supp o2 as needed, goal sat 90%, Duonebs PRN, BIPAP as needed - Abx as per ID - Cont with HAART therapy as per ID - IVF - monitor LFTs - follow up cultures - FS control - follow up neuro, official VEEG read - GI ppx - DVT ppx - Transfer to telemetry
[2017-11-08] MEDS: Megestrol Acetate 40 mg/ml Cup PO SCH (09:50)
[2017-11-08] MEDS: buPROPion SR 150 MG TABLET PO SCH (09:50)
[2017-11-08] MEDS: Azithromycin 500MG/NS 250ml 500 MG/250 ML BAG IVPB SCH (09:51)
[2017-11-08] MEDS: MethylPREDNISolone 40 mg Vial IVP SCH (09:54)
[2017-11-08] MEDS: Emtricitabine-Tenofovir 200 mg-300 mg Tab PO SCH (09:58)
--- NOTE | 2017-11-08 16:37 | CP.PCM.PN ---
<Carrington Churchill - Last Filed: 11/08/17 19:53> Subjective - Date & Time of Evaluation Date of Evaluation: 11/08/17 Time of Evaluation: 06:00 - Subjective Subjective: Pt seen and examined this morning in ICU. Pt reports feeling much better at this time. Objective - Vital Signs/Intake and Output Vital Signs (last 24 hours): Temp Pulse Resp BP Pulse Ox 98.3 F 93 H 22 129/83 86 L 11/07/17 06:00 11/08/17 15:02 11/08/17 08:30 11/08/17 15:02 11/08/17 08:30 Intake and Output: 11/08/17 11/08/17 06:59 18:59 Intake Total 800 Output Total 1825 Balance -1025 - Medications Medications: Current Medications Albuterol/Ipratropium (Duoneb 3 Mg/0.5 Mg (3 Ml) Ud) 3 ml IH [id number] PRN PRN Reason: Wheezing Amitriptyline HCl (Elavil) 100 mg PO DAILY [facility] Last Admin: 11/08/17 09:50 Dose: 100 mg Arformoterol Tartrate (Brovana) 15 mcg IH [id number] [facility] Last Admin: 11/08/17 07:58 Dose: 15 mcg Aspirin (Aspirin Chewable) 81 mg PO DAILY [facility] Last Admin: 11/08/17 09:50 Dose: 81 mg Atorvastatin Calcium (Lipitor) 40 mg PO DIN KARYN Last Admin: 11/07/17 17:37 Dose: Not Given Atovaquone (Mepron) 750 mg PO BID KARYN PRN Reason: Protocol Azithromycin (Zithromax) 500 mg PO DAILY KARYN PRN Reason: Protocol Last Admin: 11/08/17 15:02 Dose: 500 mg Budesonide (Pulmicort Respules) 0.5 mg IH [id number] [facility] Last Admin: 11/08/17 07:59 Dose: 0.5 mg Bupropion HCl (Wellbutrin Sr 150 Mg) 150 mg PO DAILY [facility] Last Admin: 11/08/17 09:50 Dose: 150 mg Clonidine HCl (Catapres) 0.3 mg PO TID [facility] Last Admin: 11/08/17 15:02 Dose: 0.3 mg Emtricitabine/Tenofovir (Truvada 200 Mg-300 Mg) 1 tab PO DAILY [facility] PRN Reason: Protocol Last Admin: 11/08/17 09:58 Dose: 1 tab Heparin Sodium (Porcine) (Heparin) 5,000 units SC Q8 KARYN PRN Reason: Protocol Last Admin: 11/08/17 15:01 Dose: 5,000 units Ibuprofen (Motrin Tab) 800 mg PO TID PRN PRN Reason: Pain, moderate (4-7) Last Admin: 11/08/17 15:02 Dose: 800 mg Megestrol Acetate (Megace) 400 mg PO DAILY [facility] Last Admin: 11/08/17 09:50 Dose: 400 mg Methylprednisolone (Medrol) 20 mg PO Q12 [facility] Pantoprazole Sodium (Protonix Ec Tab) 40 mg PO 0600 [facility] Last Admin: 11/08/17 05:42 Dose: 40 mg Raltegravir (Isentress) 400 mg PO BID [facility] PRN Reason: Protocol Last Admin: 11/08/17 09:58 Dose: 400 mg - Labs Labs: 11/08/17 06:00 11/08/17 06:00 - Constitutional Appears: No Acute Distress - ENT Exam ENT Exam: Mucous Membranes Moist - Respiratory Exam Respiratory Exam: Wheezes, NORMAL BREATHING PATTERN. absent: Stridor - Cardiovascular Exam Cardiovascular Exam: REGULAR RHYTHM, +S1, +S2 - GI/Abdominal Exam GI & Abdominal Exam: Soft, Normal Bowel Sounds. absent: Tenderness - Neurological Exam Neurological Exam: Alert, Awake, Oriented x3 - Psychiatric Exam Psychiatric exam: Normal Affect, Normal Mood - Skin Skin Exam: Dry, Normal Color, Warm Assessment and Plan - Assessment and Plan (Free Text) Assessment: Pt is a 62 yo female with a PMH of HIV, emphysema, and pulmonary fibrosis, who presented to the ED with 2 days of AMS Plan: Pneumonia - Blood cultures: no growth - ID: [email or web address]: Discontinued: Rocephin, Zithromax IV, Bactrim, acyclovir Start: Azithromax 500 PO, Mepron 750 BID, PO Methylprednisolone - Pulm Litinski: pt has CAP, TB isolation due to HIV and COPD. Rheumatoid screen. - Cryptococcal Ag not detected, CD4: 164, CD8: 441, quantiferon TB test - indeterminate - Viral Load HIV RNA 4.16, Beta D Glucan: negative - AFB x 1 collected, called micro lab at [facility]], they estimate the results will be back by Sunday AMS - repeat episode 11-07-17 - Repeat head CT negative for acute changes - pt transferred out of ICU to the floor - UDS positive for methadone - MRI: punctate infarct right temporal lobe, 3mm in size - ASA, statin - LP: no evidence of meningitis - Neuro checks - ECHO: 65% EF, Severe Tricuspid regurgitation, Severe Pulmonary Hypertension - Neuro: French, Video eeg for 24 hours Pulm HTN, Pulm fibrosis - pt would benefit from a Right Heart Cath as an out pt - Pulm: Brovana and steroids HIV - continue truvada - continue reltegravir Pt seen, examined, assessment and plan discussed with Dr May. Carrington Churchill PGY1 Internal Medicine <Abraham May - Last Filed: 11/09/17 07:01> Objective - Vital Signs/Intake and Output Vital Signs (last 24 hours): Temp Pulse Resp BP Pulse Ox 99.7 F H 65 20 104/67 100 11/08/17 17:18 11/09/17 02:00 11/08/17 17:18 11/08/17 17:38 11/08/17 17:18 Intake and Output: 11/08/17 11/09/17 18:59 06:59 Intake Total 600 Output Total 0 Balance 600 - Medications Medications: Current Medications Albuterol/Ipratropium (Duoneb 3 Mg/0.5 Mg (3 Ml) Ud) 3 ml IH [id number] PRN PRN Reason: Wheezing Last Admin: 11/08/17 19:27 Dose: 3 ml Amitriptyline HCl (Elavil) 100 mg PO DAILY [facility] Last Admin: 11/08/17 09:50 Dose: 100 mg Arformoterol Tartrate (Brovana) 15 mcg IH [id number] KARYN Last Admin: 11/08/17 19:26 Dose: 15 mcg Aspirin (Aspirin Chewable) 81 mg PO DAILY [facility] Last Admin: 11/08/17 09:50 Dose: 81 mg Atorvastatin Calcium (Lipitor) 40 mg PO DIN [facility] Last Admin: 11/08/17 17:38 Dose: 40 mg Atovaquone (Mepron) 750 mg PO BID KARYN PRN Reason: Protocol Last Admin: 11/08/17 17:37 Dose: 750 mg Azithromycin (Zithromax) 500 mg PO DAILY KARYN PRN Reason: Protocol Last Admin: 11/08/17 15:02 Dose: 500 mg Budesonide (Pulmicort Respules) 0.5 mg IH [id number] [facility] Last Admin: 11/08/17 19:27 Dose: 0.5 mg Bupropion HCl (Wellbutrin Sr 150 Mg) 150 mg PO DAILY [facility] Last Admin: 11/08/17 09:50 Dose: 150 mg Clonidine HCl (Catapres) 0.3 mg PO TID KARYN Last Admin: 11/08/17 17:38 Dose: 0.3 mg Emtricitabine/Tenofovir (Truvada 200 Mg-300 Mg) 1 tab PO DAILY KARYN PRN Reason: Protocol Last Admin: 11/08/17 09:58 Dose: 1 tab Heparin Sodium (Porcine) (Heparin) 5,000 units SC Q8 KARYN PRN Reason: Protocol Last Admin: 11/09/17 05:50 Dose: 5,000 units Ibuprofen (Motrin Tab) 800 mg PO TID PRN PRN Reason: Pain, moderate (4-7) Last Admin: 11/08/17 15:02 Dose: 800 mg Megestrol Acetate (Megace) 400 mg PO DAILY [facility] Last Admin: 11/08/17 09:50 Dose: 400 mg Methylprednisolone (Medrol) 20 mg PO Q12 [facility] Last Admin: 11/08/17 21:58 Dose: 20 mg Pantoprazole Sodium (Protonix Ec Tab) 40 mg PO 0600 [facility] Last Admin: 11/09/17 05:50 Dose: 40 mg Raltegravir (Isentress) 400 mg PO BID [facility] PRN Reason: Protocol Last Admin: 11/08/17 17:38 Dose: 400 mg - Labs Labs: 11/08/17 06:00 11/08/17 06:00 Attending/Attestation - Attestation I have personally seen and examined this patient.: Yes I have fully participated in the care of the patient.: Yes I have reviewed all pertinent clinical information, including history, physical exam and plan: Yes Notes (Text): 11/08/17 62 year old female with past medical history of HIV, pulmonary fibrosis and emphysema who presented with altered mental status, which later resolved. Patient is s/p LP without evidence of bacterial meningitis. CT head was negative. MRI brain showed punctate right temporal lobe infarct. Howevr repeat MRI brain and CT head were negative. Patient is on aspirin and statin. EEG negative as well. Neurology is following. UTox was positive for methadone which patient is denying recent use of. She was counselled on risks of substance abuse. Initial CXR showed left upper lobe interstitial infiltrate and minimal interstitial infiltrate in right lower lobe. Continue with antibiotics as per ID. Patient is pending AFB x 3 however had been unable to provide sample. One AFB was sent yesterday and pending. Quantiferon study was indeterminate. Case was discussed with ID; recommended to d/c bactrim and acyclovir and start mepron. Severe pulmonary hypertension was noted on echocardiogram. Pulmonary and cardiology recommended outpatient pulmonary follow up and right heart cath. Abraham May MD Hospitalist.
[2017-11-08] MEDS: Atovaquone 750 mg/5 ml Susp UD PO SCH (17:37)
--- NOTE | 2017-11-08 17:48 | PN ---
DATE: 11/08/2017 SUBJECTIVE: The patient was seen earlier today in 128, bed 3. No fevers and no chills. The patient had an uneventful night. PHYSICAL EXAMINATION: VITAL SIGNS: Temperature is 98, heart rate of 100, respiratory rate of 22, and blood pressure is 110/70. HEENT: Unremarkable. NECK: Supple. LUNGS: Decreased breath sounds. HEART: Normal S1 and S2. ABDOMEN: Soft, nontender. LABORATORY EXAMINATION: Reveals a white count of 6.7, hemoglobin of 14, and platelets of 191. Chemistries reveal a BUN of 18, creatinine of 0.7. Spinal fluid is noted, 18 wbc's. Methadone screen is positive. The patient's CD4 count is 164 at 20%. HIV is detectable at 4.16 . TB, QuantiFERON is indeterminate. Microbiology reveals the blood cultures are no growth. CSF cultures are no growth. ASSESSMENT AND PLAN: This is a 62-year-old female seen in [facility], bed 3 earlier today with sepsis with acute bacterial pneumonia in a patient with human immunodeficiency virus disease and acquired immune deficiency syndrome, viral meningitis. Cultures negative. Currently, on ceftriaxone, Zithromax, and Bactrim, day #1. The Fungitell is negative. The patient is also on acyclovir IV. The patient's chest x-ray, slight improvement in the right lower lobe infiltrate. The patient had a CAT scan of the chest. Diffuse interstitial infiltrate, pulmonary fibrosis and had LDH which is 799. We will repeat the LDH. I doubt this to be pneumocystis. We will follow with you. Zay Lee MD
--- NOTE | 2017-11-09 00:29 | CP.PCM.PN ---
Subjective - Date & Time of Evaluation Date of Evaluation: 11/08/17 Time of Evaluation: 10:15 - Subjective Subjective: Miss Santizo is now awake very vocal, and following commands well with no new complaints. on exam: Normal neurological exam. EEG: normal 24 hour eeg. No seizures, no interictal epileptiform discharges. Objective - Vital Signs/Intake and Output Vital Signs (last 24 hours): Temp Pulse Resp BP Pulse Ox 99.7 F H 114 H 20 104/67 100 11/08/17 17:18 11/08/17 18:00 11/08/17 17:18 11/08/17 17:38 11/08/17 17:18 Intake and Output: 11/08/17 11/09/17 18:59 06:59 Intake Total 600 Output Total 0 Balance 600 - Medications Medications: Current Medications Albuterol/Ipratropium (Duoneb 3 Mg/0.5 Mg (3 Ml) Ud) 3 ml IH [id number] PRN PRN Reason: Wheezing Last Admin: 11/08/17 19:27 Dose: 3 ml Amitriptyline HCl (Elavil) 100 mg PO DAILY [facility] Last Admin: 11/08/17 09:50 Dose: 100 mg Arformoterol Tartrate (Brovana) 15 mcg IH [id number] [facility] Last Admin: 11/08/17 19:26 Dose: 15 mcg Aspirin (Aspirin Chewable) 81 mg PO DAILY [facility] Last Admin: 11/08/17 09:50 Dose: 81 mg Atorvastatin Calcium (Lipitor) 40 mg PO DIN [facility] Last Admin: 11/08/17 17:38 Dose: 40 mg Atovaquone (Mepron) 750 mg PO BID [facility] PRN Reason: Protocol Last Admin: 11/08/17 17:37 Dose: 750 mg Azithromycin (Zithromax) 500 mg PO DAILY [facility] PRN Reason: Protocol Last Admin: 11/08/17 15:02 Dose: 500 mg Budesonide (Pulmicort Respules) 0.5 mg IH [id number] [facility] Last Admin: 11/08/17 19:27 Dose: 0.5 mg Bupropion HCl (Wellbutrin Sr 150 Mg) 150 mg PO DAILY [facility] Last Admin: 11/08/17 09:50 Dose: 150 mg Clonidine HCl (Catapres) 0.3 mg PO TID [facility] Last Admin: 11/08/17 17:38 Dose: 0.3 mg Emtricitabine/Tenofovir (Truvada 200 Mg-300 Mg) 1 tab PO DAILY [facility] PRN Reason: Protocol Last Admin: 11/08/17 09:58 Dose: 1 tab Heparin Sodium (Porcine) (Heparin) 5,000 units SC Q8 [facility] PRN Reason: Protocol Last Admin: 11/08/17 21:56 Dose: 5,000 units Ibuprofen (Motrin Tab) 800 mg PO TID PRN PRN Reason: Pain, moderate (4-7) Last Admin: 11/08/17 15:02 Dose: 800 mg Megestrol Acetate (Megace) 400 mg PO DAILY [facility] Last Admin: 11/08/17 09:50 Dose: 400 mg Methylprednisolone (Medrol) 20 mg PO Q12 [facility] Last Admin: 11/08/17 21:58 Dose: 20 mg Pantoprazole Sodium (Protonix Ec Tab) 40 mg PO 0600 [facility] Last Admin: 11/08/17 05:42 Dose: 40 mg Raltegravir (Isentress) 400 mg PO BID [facility] PRN Reason: Protocol Last Admin: 11/08/17 17:38 Dose: 400 mg - Labs Labs: 11/08/17 06:00 11/08/17 06:00 Assessment and Plan - Assessment and Plan (Free Text) Assessment: Patient with spell that was thought to be seizure, more likely was nonepileptic events, now with normal neurological examination. we will sign off at this point. ' Please reconsult prn. Thank you Dr. wang
[2017-11-09] MEDS: Pantoprazole 40 mg EC Tab PO SCH (05:50)
[2017-11-09 07:07] LABS: EOS % 0.1 % (1.5-5.0); GRAN # 5.44 (1.4-6.5); GRAN % 72.1 % (50.0-68.0); HEMOGLOBIN 13.6 g/dL (12.0-16.0); LYMPH # 1.5 (1.2-3.4); LYMPH % 19.3 % (22.0-35.0); MEAN CORPUSCULAR HEMOGLOBIN 30.2 pg (25.0-35.0); MEAN CORPUSCULAR HGB CONC 32.1 g/dl (31.0-37.0); MEAN PLATELET VOLUME 9.7 fl (7.0-11.0); MONO # 0.6 (0.1-0.6); MONO % 8.5 % (1.0-6.0); RBC 4.51 10^6/uL (3.5-6.1); WHITE BLOOD COUNT 7.6 10^3/ul (4.5-11.0)
[2017-11-09 07:27] LABS: ALB/GLOB RATIO 0.7 (1.1-1.8); ALBUMIN 2.7 g/dL (3.0-4.8); ALT/SGPT 30 U/L (7-56); AST/SGOT 22 U/L (14-36); BLOOD UREA NITROGEN 22 mg/dL (7-21); CALCIUM 8.5 mg/dL (8.4-10.5); GFR NON-AFRICAN AMERICAN > 60
[2017-11-09] MEDS: Budesonide 0.5 mg/2 ml Inhal Susp UD IH SCH ×2 (08:02→20:07)
[2017-11-09] MEDS: Arformoterol 15 mcg/2 ml Inh Sol IH SCH ×2 (08:02→20:06)
--- NOTE | 2017-11-09 09:04 | CP.PCM.PN ---
<Trang Stacy - Last Filed: 11/09/17 12:39> Subjective - Date & Time of Evaluation Date of Evaluation: 11/09/17 Time of Evaluation: 09:00 - Subjective Subjective: [id number] ID Progress note for Dr. Brumfield Patient seen and examined sitting in chair near the window. Nursing reports no acute events overnight. Patient denied acute complaints of fever, chills, night sweats, headache, dizziness, chest pain, palpitations, abdominal pain, nausea, vomiting, SOB, bowel/bladder complaints, pain/swelling in her legs bilaterally. Patient states she has a chronic dry cough but is unable to produce anymore sputum to send for AFB. She is eager to go home today and was asking about how to sign out AMA. Objective - Vital Signs/Intake and Output Vital Signs (last 24 hours): Temp Pulse Resp BP Pulse Ox 98.3 F 98 H 18 127/92 H 98 11/09/17 08:08 11/09/17 08:08 11/09/17 08:08 11/09/17 08:08 11/09/17 08:08 Intake and Output: 11/09/17 11/09/17 06:59 18:59 Intake Total 360 Output Total 400 Balance -40 - Medications Medications: Current Medications Albuterol/Ipratropium (Duoneb 3 Mg/0.5 Mg (3 Ml) Ud) 3 ml IH [id number] PRN PRN Reason: Wheezing Last Admin: 11/08/17 19:27 Dose: 3 ml Amitriptyline HCl (Elavil) 100 mg PO DAILY [facility] Last Admin: 11/08/17 09:50 Dose: 100 mg Arformoterol Tartrate (Brovana) 15 mcg IH [id number] [facility] Last Admin: 11/09/17 08:02 Dose: Not Given Aspirin (Aspirin Chewable) 81 mg PO DAILY [facility] Last Admin: 11/08/17 09:50 Dose: 81 mg Atorvastatin Calcium (Lipitor) 40 mg PO DIN [facility] Last Admin: 11/08/17 17:38 Dose: 40 mg Atovaquone (Mepron) 750 mg PO BID [facility] PRN Reason: Protocol Last Admin: 11/08/17 17:37 Dose: 750 mg Azithromycin (Zithromax) 500 mg PO DAILY [facility] PRN Reason: Protocol Last Admin: 11/08/17 15:02 Dose: 500 mg Budesonide (Pulmicort Respules) 0.5 mg IH [id number] [facility] Last Admin: 11/09/17 08:02 Dose: Not Given Bupropion HCl (Wellbutrin Sr 150 Mg) 150 mg PO DAILY [facility] Last Admin: 11/08/17 09:50 Dose: 150 mg Clonidine HCl (Catapres) 0.3 mg PO TID [facility] Last Admin: 11/08/17 17:38 Dose: 0.3 mg Emtricitabine/Tenofovir (Truvada 200 Mg-300 Mg) 1 tab PO DAILY [facility] PRN Reason: Protocol Last Admin: 11/08/17 09:58 Dose: 1 tab Heparin Sodium (Porcine) (Heparin) 5,000 units SC Q8 [facility] PRN Reason: Protocol Last Admin: 11/09/17 05:50 Dose: 5,000 units Ibuprofen (Motrin Tab) 800 mg PO TID PRN PRN Reason: Pain, moderate (4-7) Last Admin: 11/08/17 15:02 Dose: 800 mg Megestrol Acetate (Megace) 400 mg PO DAILY [facility] Last Admin: 11/08/17 09:50 Dose: 400 mg Methylprednisolone (Medrol) 20 mg PO Q12 [facility] Last Admin: 11/08/17 21:58 Dose: 20 mg Pantoprazole Sodium (Protonix Ec Tab) 40 mg PO 0600 [facility] Last Admin: 11/09/17 05:50 Dose: 40 mg Raltegravir (Isentress) 400 mg PO BID [facility] PRN Reason: Protocol Last Admin: 11/08/17 17:38 Dose: 400 mg - Labs Labs: 11/09/17 06:20 11/09/17 06:20 - Constitutional Appears: Unkempt, Chronically Ill - Head Exam Head Exam: ATRAUMATIC, NORMOCEPHALIC - Eye Exam Eye Exam: EOMI, Normal appearance. absent: Conjunctival injection, Scleral icterus - ENT Exam ENT Exam: Mucous Membranes Dry - Neck Exam Neck Exam: Full ROM - Respiratory Exam Respiratory Exam: Rhonchi, Wheezes, NORMAL BREATHING PATTERN. absent: Accessory Muscle Use, Respiratory Distress - Cardiovascular Exam Cardiovascular Exam: Tachycardia, +S1, +S2 - GI/Abdominal Exam GI & Abdominal Exam: Soft, Normal Bowel Sounds. absent: Firm, Tenderness - Rectal Exam Rectal Exam: Deferred - Extremities Exam Extremities Exam: Normal Capillary Refill, Normal Inspection. absent: Pedal Edema - Neurological Exam Neurological Exam: Alert, Awake, CN II-XII Intact, Oriented x3 - Psychiatric Exam Psychiatric exam: Normal Affect, Normal Mood - Skin Skin Exam: Dry, Intact Assessment and Plan - Assessment and Plan (Free Text) Assessment: 62yo female PMHx HIV on HAART, pulmonary fibrosis, and emphysema presents to the ER with 2 days of AMS. ID consulted for sepsis secondary to bacterial pna Plan: -sepsis likely secondary to bacterial pna - r/o TB AFB negative x 1 f/u AFB x 2 isolation and droplet precautions discontinued -CT head: unremarkable -Spinal tap: Volume: 2 Appearance: clear/colorless WBC: 18 RBC: 10 Total Cell Count: 100 Neutrophils: 1 Lymphocytes: 98 Monocytes/Macrophages: 1 Glucose: 70 Total Protein: 37 LDH: pending VDRL: pending HSV I and HSV II: pending -CSF culture 11/01: negative final -Cryptococcus: negative -Procalcitonin: <0.05 -Patient has known hx of HIV on home meds Truvada and Isentress %CD4: 20 Absolute CD4: 164 T Help/Suppress: 0.37 Absolute CD8: 441 %CD8: 55 -blood culture prelim x 1 : no growth -urine culture: consider repeat -Brain MRI: punctate infarct R temporal lobe on the order of 3mm size based on diffusion weighted imaging. no lobar brain infarction identified. Exam otherwise reflects age-appropriate related neuro degenerative changes -CT Chest: diffuse IS infiltrate/pulmonary fibrosis in the left upper lobe. There is more focal area of consolidation/scarrying and volume loss in the superior segment of the left lower lobe. There are also some bulla contiguous with the consolidation. There is also evidence of emphysema in both upper lobes. -CXR: There is left upper lobe IS infiltrate adn a minimal IS infiltrate in the R lower lobe -Echo reviewed- unremarkable -continue Azithromycin -continue management as per primary Discussed with Dr. Octaviano Stacy Pgy3 <Alireza Brumfield - Last Filed: 11/09/17 13:13> Objective - Vital Signs/Intake and Output Vital Signs (last 24 hours): Temp Pulse Resp BP Pulse Ox 98.3 F 98 H 18 127/92 H 98 11/09/17 08:08 11/09/17 10:09 11/09/17 08:08 11/09/17 10:09 11/09/17 08:08 Intake and Output: 11/09/17 11/09/17 06:59 18:59 Intake Total 360 Output Total 400 Balance -40 - Medications Medications: Current Medications Albuterol/Ipratropium (Duoneb 3 Mg/0.5 Mg (3 Ml) Ud) 3 ml IH [id number] PRN PRN Reason: Wheezing Last Admin: 11/08/17 19:27 Dose: 3 ml Amitriptyline HCl (Elavil) 100 mg PO DAILY [facility] Last Admin: 11/09/17 10:12 Dose: 100 mg Arformoterol Tartrate (Brovana) 15 mcg IH [id number] [facility] Last Admin: 11/09/17 08:02 Dose: Not Given Aspirin (Aspirin Chewable) 81 mg PO DAILY [facility] Last Admin: 11/09/17 10:09 Dose: 81 mg Atorvastatin Calcium (Lipitor) 40 mg PO DIN [facility] Last Admin: 11/08/17 17:38 Dose: 40 mg Atovaquone (Mepron) 750 mg PO BID [facility] PRN Reason: Protocol Last Admin: 11/09/17 10:11 Dose: 750 mg Azithromycin (Zithromax) 500 mg PO DAILY [facility] PRN Reason: Protocol Last Admin: 11/09/17 10:12 Dose: 500 mg Budesonide (Pulmicort Respules) 0.5 mg IH [id number] [facility] Last Admin: 11/09/17 08:02 Dose: Not Given Bupropion HCl (Wellbutrin Sr 150 Mg) 150 mg PO DAILY [facility] Last Admin: 11/09/17 10:12 Dose: 150 mg Clonidine HCl (Catapres) 0.3 mg PO TID [facility] Last Admin: 11/09/17 10:09 Dose: 0.3 mg Emtricitabine/Tenofovir (Truvada 200 Mg-300 Mg) 1 tab PO DAILY [facility] PRN Reason: Protocol Last Admin: 11/09/17 10:11 Dose: 1 tab Heparin Sodium (Porcine) (Heparin) 5,000 units SC Q8 [facility] PRN Reason: Protocol Last Admin: 11/09/17 05:50 Dose: 5,000 units Ibuprofen (Motrin Tab) 800 mg PO TID PRN PRN Reason: Pain, moderate (4-7) Last Admin: 11/08/17 15:02 Dose: 800 mg Megestrol Acetate (Megace) 400 mg PO DAILY [facility] Last Admin: 11/09/17 10:11 Dose: 400 mg Methylprednisolone (Medrol) 20 mg PO Q12 [facility] Last Admin: 11/09/17 10:14 Dose: 20 mg Pantoprazole Sodium (Protonix Ec Tab) 40 mg PO 0600 [facility] Last Admin: 11/09/17 05:50 Dose: 40 mg Raltegravir (Isentress) 400 mg PO BID [facility] PRN Reason: Protocol Last Admin: 11/09/17 10:11 Dose: 400 mg - Labs Labs: 11/09/17 06:20 11/09/17 06:20 Assessment and Plan - Assessment and Plan (Free Text) Plan: Infectious Diseases Attending Physician Addendum Patient seen and examined, discussed with medical data entry clerk. I have reviewed the pertinent clinical information for the patient, including history of present illness, medical, personal and social histories, lab results and imaging findings. I agree with the above findings, assessment and plan. In addition: Assessment sepsis from acute bacterial pneumonia, unlikely PJP in this patient with chronic HIV infection AIDS with latest CD4 count 164, less likely TB acute meningitis R/O viral emphysema and pulmonary fibrosis Plan follow up final culture results Quantiferon TB test is indeterminate but sputum AFB x 1 and suspicion for TB is lower since she is not really able to produce sputum - may d/c isolation as discussed with infection control continue Rocephin, Zithromax - Fungitell is negative, making PJP unlikely, but will keep Mepron for PJP prophylaxis continue ART follow up final CSF work up; CSF crypt Ag is negative, pending CSF VDRL; HSV PCR in the CSF is negative and Acyclovir has been discontinued discussed with Dr. May
[2017-11-09] MEDS: Emtricitabine-Tenofovir 200 mg-300 mg Tab PO SCH (10:11)
[2017-11-09] MEDS: Atovaquone 750 mg/5 ml Susp UD PO SCH ×2 (10:11→17:25)
[2017-11-09] MEDS: Megestrol Acetate 40 mg/ml Cup PO SCH (10:11)
[2017-11-09] MEDS: buPROPion SR 150 MG TABLET PO SCH (10:12)
[2017-11-09] MEDS ORDERED: cefTRIAXone 2 GM IN NS 2 GM/100 ML BAG IVPB SCH (14:00)
[2017-11-09 16:18] VITALS: RESP 20
--- NOTE | 2017-11-09 22:39 | CP.PCM.PN ---
<Carrington Churchill - Last Filed: 11/09/17 22:50> Subjective - Date & Time of Evaluation Date of Evaluation: 11/09/17 Time of Evaluation: 05:00 - Subjective Subjective: Pt seen and examined this morning. Reports breathing continues to improve. Normal mental status. Objective - Vital Signs/Intake and Output Vital Signs (last 24 hours): Temp Pulse Resp BP Pulse Ox 98.7 F 97 H 20 130/86 98 11/09/17 16:18 11/09/17 18:00 11/09/17 16:18 11/09/17 17:24 11/09/17 16:18 Intake and Output: 11/09/17 11/10/17 18:59 06:59 Intake Total 1770 Output Total 350 Balance 1420 - Medications Medications: Current Medications Albuterol/Ipratropium (Duoneb 3 Mg/0.5 Mg (3 Ml) Ud) 3 ml IH [id number] PRN PRN Reason: Wheezing Last Admin: 11/08/17 19:27 Dose: 3 ml Amitriptyline HCl (Elavil) 100 mg PO DAILY [facility] Last Admin: 11/09/17 10:12 Dose: 100 mg Arformoterol Tartrate (Brovana) 15 mcg [facility] [id number] [facility] Last Admin: 11/09/17 20:06 Dose: 15 mcg Aspirin (Aspirin Chewable) 81 mg PO DAILY [facility] Last Admin: 11/09/17 10:09 Dose: 81 mg Atorvastatin Calcium (Lipitor) 40 mg PO DIN [facility] Last Admin: 11/09/17 17:25 Dose: 40 mg Atovaquone (Mepron) 750 mg PO BID [facility] PRN Reason: Protocol Last Admin: 11/09/17 17:25 Dose: 750 mg Azithromycin (Zithromax) 500 mg PO DAILY [facility] PRN Reason: Protocol Last Admin: 11/09/17 10:12 Dose: 500 mg Budesonide (Pulmicort Respules) 0.5 mg IH [id number] [facility] Last Admin: 11/09/17 20:07 Dose: 0.5 mg Bupropion HCl (Wellbutrin Sr 150 Mg) 150 mg PO DAILY [facility] Last Admin: 11/09/17 10:12 Dose: 150 mg Clonidine HCl (Catapres) 0.3 mg PO TID [facility] Last Admin: 11/09/17 17:24 Dose: 0.3 mg Emtricitabine/Tenofovir (Truvada 200 Mg-300 Mg) 1 tab PO DAILY [facility] PRN Reason: Protocol Last Admin: 11/09/17 10:11 Dose: 1 tab Heparin Sodium (Porcine) (Heparin) 5,000 units SC Q8 [facility] PRN Reason: Protocol Last Admin: 11/09/17 21:33 Dose: 5,000 units Ceftriaxone Sodium (Rocephin 1 Gram Ivpb) 1 gm in 100 mls @ 100 mls/hr IVPB DAILY [facility] PRN Reason: Protocol Ceftriaxone Sodium (Rocephin 2 Gm Ivpb) 2 gm in 100 mls @ 100 mls/hr IVPB DAILY [facility] PRN Reason: Protocol Last Admin: 11/09/17 14:35 Dose: 100 mls/hr Ibuprofen (Motrin Tab) 800 mg PO TID PRN PRN Reason: Pain, moderate (4-7) Last Admin: 11/08/17 15:02 Dose: 800 mg Megestrol Acetate (Megace) 400 mg PO DAILY [facility] Last Admin: 11/09/17 10:11 Dose: 400 mg Methylprednisolone (Medrol) 20 mg PO Q12 [facility] Last Admin: 11/09/17 21:33 Dose: 20 mg Pantoprazole Sodium (Protonix Ec Tab) 40 mg PO 0600 [facility] Last Admin: 11/09/17 05:50 Dose: 40 mg Raltegravir (Isentress) 400 mg PO BID [facility] PRN Reason: Protocol Last Admin: 11/09/17 17:25 Dose: 400 mg - Labs Labs: 11/09/17 06:20 11/09/17 06:20 - Constitutional Appears: No Acute Distress - Head Exam Head Exam: NORMOCEPHALIC - ENT Exam ENT Exam: Mucous Membranes Moist - Respiratory Exam Respiratory Exam: Wheezes. absent: Respiratory Distress - Cardiovascular Exam Cardiovascular Exam: RRR, +S1, +S2. absent: Murmur - GI/Abdominal Exam GI & Abdominal Exam: Soft, Normal Bowel Sounds. absent: Tenderness - Extremities Exam Extremities Exam: absent: Calf Tenderness - Neurological Exam Neurological Exam: Alert, Awake - Skin Skin Exam: Dry, Warm Assessment and Plan - Assessment and Plan (Free Text) Assessment: Pt is a 62 yo female with a PMH of HIV, emphysema, and pulmonary fibrosis, who presented to the ED with 2 days of AMS. Plan: Pneumonia - Blood cultures: no growth - ID, Octaviano: Continue Azithromax 500 PO, Mepron 750 BID, PO Medrol, Ceftriaxone 2gm IV Push - Per ID, AFB negative x 1, still need 2 more negative sputum samples before discharge - Pulm Litinski: CAP, TB isolation due to HIV and COPD. - Viral Load HIV RNA 4.16, Beta D Glucan: negative AMS - Repeat head CT negative for acute changes - pt transferred out of ICU to the floor - UDS positive for methadone - MRI: punctate infarct right temporal lobe, 3mm in size - ASA, statin - LP: no evidence of meningitis - Neuro checks - ECHO: 65% EF, Severe Tricuspid regurgitation, Severe Pulmonary Hypertension - Neuro: French, Video eeg for 24 hours Pulm HTN, Pulm fibrosis - pt would benefit from a Right Heart Cath as an out pt - Pulm: Brovana and steroids HIV - continue truvada - continue reltegravir Pt seen, examined and discussed with Dr. May. Carrington Churchill, PGY 1, Internal Medicine <Abraham May - Last Filed: 11/10/17 14:42> Objective - Vital Signs/Intake and Output Vital Signs (last 24 hours): Temp Pulse Resp BP Pulse Ox 98.5 F 108 H 20 125/69 97 11/10/17 06:00 11/10/17 14:40 11/10/17 06:00 11/10/17 14:40 11/10/17 06:00 - Medications Medications: Current Medications Albuterol/Ipratropium (Duoneb 3 Mg/0.5 Mg (3 Ml) Ud) 3 ml IH [id number] PRN PRN Reason: Wheezing Last Admin: 11/08/17 19:27 Dose: 3 ml Amitriptyline HCl (Elavil) 100 mg PO DAILY [facility] Last Admin: 11/10/17 09:41 Dose: 100 mg Arformoterol Tartrate (Brovana) 15 mcg [facility] [id number] [facility] Last Admin: 11/10/17 07:47 Dose: Not Given Aspirin (Aspirin Chewable) 81 mg PO DAILY [facility] Last Admin: 11/10/17 09:41 Dose: 81 mg Atorvastatin Calcium (Lipitor) 40 mg PO DIN [facility] Last Admin: 11/09/17 17:25 Dose: 40 mg Atovaquone (Mepron) 750 mg PO BID [facility] PRN Reason: Protocol Last Admin: 11/10/17 09:40 Dose: 750 mg Azithromycin (Zithromax) 500 mg PO DAILY [facility] PRN Reason: Protocol Last Admin: 11/10/17 09:40 Dose: 500 mg Budesonide (Pulmicort Respules) 0.5 mg IH [id number] [facility] Last Admin: 11/10/17 07:48 Dose: Not Given Bupropion HCl (Wellbutrin Sr 150 Mg) 150 mg PO DAILY [facility] Last Admin: 11/10/17 09:41 Dose: 150 mg Clonidine HCl (Catapres) 0.3 mg PO TID [facility] Last Admin: 11/10/17 14:40 Dose: Not Given Emtricitabine/Tenofovir (Truvada 200 Mg-300 Mg) 1 tab PO DAILY [facility] PRN Reason: Protocol Last Admin: 11/10/17 09:41 Dose: 1 tab Ceftriaxone Sodium (Rocephin 1 Gram Ivpb) 1 gm in 100 mls @ 100 mls/hr IVPB DAILY [facility] PRN Reason: Protocol Last Admin: 11/10/17 09:40 Dose: 100 mls/hr Ibuprofen (Motrin Tab) 800 mg PO TID PRN PRN Reason: Pain, moderate (4-7) Last Admin: 11/08/17 15:02 Dose: 800 mg Megestrol Acetate (Megace) 400 mg PO DAILY [facility] Last Admin: 11/10/17 09:40 Dose: 400 mg Methylprednisolone (Medrol) 20 mg PO Q12 [facility] Last Admin: 11/10/17 09:41 Dose: 20 mg Pantoprazole Sodium (Protonix Ec Tab) 40 mg PO 0600 [facility] Last Admin: 11/10/17 05:45 Dose: 40 mg Raltegravir (Isentress) 400 mg PO BID [facility] PRN Reason: Protocol Last Admin: 11/10/17 09:41 Dose: 400 mg - Labs Labs: 11/10/17 07:00 11/10/17 07:00 Attending/Attestation - Attestation I have personally seen and examined this patient.: Yes I have fully participated in the care of the patient.: Yes I have reviewed all pertinent clinical information, including history, physical exam and plan: Yes Notes (Text): 11/09/17 62 year old female with past medical history of HIV, pulmonary fibrosis and emphysema who presented with altered mental status, which later resolved. Patient is s/p LP without evidence of bacterial meningitis. CT head was negative. MRI brain showed punctate right temporal lobe infarct. However repeat MRI brain and CT head were negative. Patient is on aspirin and statin. EEG negative as well. Neurology is following. UTox was positive for methadone which patient is denying recent use of. She was counselled on risks of substance abuse. Initial CXR showed left upper lobe interstitial infiltrate and minimal interstitial infiltrate in right lower lobe. Continue with antibiotics as per ID. Patient is pending AFB x 3 however had been unable to provide sample. One AFB was sent and negative. Quantiferon study was indeterminate. ID is following. Patient is on rocephin, azithromycin and mepron. Severe pulmonary hypertension was noted on echocardiogram. Pulmonary and cardiology recommended outpatient pulmonary follow up and right heart cath. Abraham May MD Hospitalist.
[2017-11-10] MEDS: Pantoprazole 40 mg EC Tab PO SCH (05:45)
[2017-11-10 06:56] VITALS: TEMP 98.5; O2SAT 97
[2017-11-10] MEDS: Arformoterol 15 mcg/2 ml Inh Sol IH SCH (07:47)
[2017-11-10] MEDS: Budesonide 0.5 mg/2 ml Inhal Susp UD IH SCH (07:48)
[2017-11-10 08:15] LABS: GRAN # 5.81 (1.4-6.5); GRAN % 76.6 % (50.0-68.0); HEMOGLOBIN 13.2 g/dL (12.0-16.0); LYMPH # 1.2 (1.2-3.4); LYMPH % 16.1 % (22.0-35.0); MEAN CELL VOLUME 93.9 fl (80.0-105.0); MEAN CORPUSCULAR HEMOGLOBIN 29.8 pg (25.0-35.0); MEAN CORPUSCULAR HGB CONC 31.7 g/dl (31.0-37.0); MEAN PLATELET VOLUME 9.5 fl (7.0-11.0); MONO # 0.6 (0.1-0.6); MONO % 7.3 % (1.0-6.0); RBC 4.43 10^6/uL (3.5-6.1); RED CELL DISTRIBUTION WIDTH 14.9 % (11.5-14.5); WHITE BLOOD COUNT 7.6 10^3/ul (4.5-11.0)
[2017-11-10 09:00] LABS: ALB/GLOB RATIO 0.8 (1.1-1.8); ALT/SGPT 26 U/L (7-56); AST/SGOT 23 U/L (14-36); BLOOD UREA NITROGEN 26 mg/dL (7-21); CALCIUM 8.4 mg/dL (8.4-10.5); GFR NON-AFRICAN AMERICAN > 60
[2017-11-10] MEDS: Megestrol Acetate 40 mg/ml Cup PO SCH (09:40)
[2017-11-10] MEDS: Atovaquone 750 mg/5 ml Susp UD PO SCH (09:40)
[2017-11-10] MEDS: buPROPion SR 150 MG TABLET PO SCH (09:41)
[2017-11-10] MEDS: Emtricitabine-Tenofovir 200 mg-300 mg Tab PO SCH (09:41)
[2017-11-10] MEDS ORDERED: cefTRIAXone 1 gm 1 GM/100 ML BAG IVPB SCH (10:00)
[2017-11-10 14:40] VITALS: BP 125/69; PULSE 108
--- NOTE | 2017-11-10 16:07 | PN ---
DATE: 11/10/2017 SUBJECTIVE: The patient is in bed, seen earlier today in room 365, bed 1. Patient has no fevers and chills. PHYSICAL EXAMINATION: VITAL SIGNS: Temperature is 98, blood pressure is 116/70, respiratory rate of 18. HEENT: Unremarkable. NECK: Supple. LUNGS: Have decreased breath sounds. HEART: Normal S1 and S2. ABDOMINAL: Soft. LABORATORY EXAMINATION: Reveals a white count of 7.6, hemoglobin of 13 and platelets of 247. Chemistries reveals a BUN of 26, creatinine of 0.8. Urinalysis is noted and T-cells are noted. Serology is reviewed. Review of orders . ASSESSMENT AND PLAN: A 62-year-old female with positive acquired immune deficiency syndrome, positive pulmonary fibrosis, emphysema, was admitted with change in mental status, had probably a viral meningitis, this has resolved and initially admitted with sepsis with acute bacterial pneumonia and patient's acute meningitis is probably viral. Currently doing well. We can discontinue ceftriaxone and AFBs were negative. Patient may use p.o. Bactrim double strength three times weekly for Pneumocystis carinii pneumonia prophylaxis and further human immunodeficiency virus medications. Patient's procalcitonin initially was negative. Follow up with human immunodeficiency virus provider. Zay Lee MD
--- NOTE | 2017-11-11 16:43 | CP.PCM.DIS ---
Provider - Provider Date of Admission: 11/01/17 18:23 Attending physician: Abraham May MD Primary care physician: Dr. Cook Consults: ID: Dr. Lee Neuro: Dr. French Cardio: Dr. Acosta Pulmonology/ICU: Dr. Castillo Time Spent in preparation of Discharge (in minutes): 54 Diagnosis - Discharge Diagnosis (1) HIV (human immunodeficiency virus infection) Status: Chronic (2) Altered mental state Status: Acute (3) Pneumonia Status: Acute Hospital Course - Lab Results Lab Results: Micro Results 11/07/17 16:09 Naris MRSA Culture (Admit) - Final MRSA NOT DETECTED 11/07/17 12:30 Other: Please Indicate Mycobacterial Culture - Preliminary Most Recent Lab Values WBC 7.6 10^3/ul (4.5-11.0) 11/10/17 07:00 RBC 4.43 10^6/uL (3.5-6.1) 11/10/17 07:00 Hgb 13.2 g/dL (12.0-16.0) 11/10/17 07:00 Hct 41.6 % (36.0-48.0) 11/10/17 07:00 MCV 93.9 fl (80.0-105.0) 11/10/17 07:00 MCH 29.8 pg (25.0-35.0) 11/10/17 07:00 MCHC 31.7 g/dl (31.0-37.0) 11/10/17 07:00 RDW 14.9 % (11.5-14.5) H 11/10/17 07:00 Plt Count 247 10^3/uL (120.0-450.0) 11/10/17 07:00 MPV 9.5 fl (7.0-11.0) 11/10/17 07:00 Gran % 76.6 % (50.0-68.0) H 11/10/17 07:00 Lymph % (Auto) 16.1 % (22.0-35.0) L 11/10/17 07:00 [place] % (Auto) 7.3 % (1.0-6.0) H 11/10/17 07:00 Eos % (Auto) 0.0 % (1.5-5.0) L 11/10/17 07:00 Baso % (Auto) 0.0 % (0.0-3.0) 11/10/17 07:00 Gran # 5.81 (1.4-6.5) 11/10/17 07:00 Lymph # (Auto) 1.2 (1.2-3.4) 11/10/17 07:00 [place] # (Auto) 0.6 (0.1-0.6) 11/10/17 07:00 Eos # (Auto) 0.0 (0.0-0.7) 11/10/17 07:00 Baso # (Auto) 0.00 K/mm3 (0.0-2.0) 11/10/17 07:00 Neutrophils % (Manual) 95 % (50.0-70.0) H 11/03/17 08:00 Lymphocytes % (Manual) 4 % (22.0-35.0) L 11/03/17 08:00 Monocytes % (Manual) 1 % (1.0-6.0) 11/03/17 08:00 Anisocytosis (manual) Slight 11/03/17 08:00 ESR 15 mm/hr (0.0-20.0) 11/06/17 07:00 pCO2 45 mm/Hg (35-45) 11/07/17 17:00 pO2 109.0 mm/Hg (80-100) H 11/07/17 17:00 HCO3 23.2 mmol/L (21-28) 11/07/17 17:00 ABG pH 7.32 (7.35-7.45) L 11/07/17 17:00 ABG Total CO2 24.6 mmol.L (22-28) 11/07/17 17:00 ABG O2 Saturation 98.8 % (95-98) H 11/07/17 17:00 ABG O2 Content 18.2 ML/dl (15-23) 11/07/17 14:45 ABG Base Excess -3.1 mmol/L (-2.0-3.0) L 11/07/17 17:00 ABG Hemoglobin 13.5 g/dL (11.7-17.4) 11/07/17 14:45 ABG Carboxyhemoglobin 2.7 % (0.5-1.5) H 11/07/17 14:45 POC ABG HHb (Measured) 0.9 % (0-5) 11/07/17 14:45 ABG Methemoglobin 0.9 % (0.0-3.0) 11/07/17 14:45 ABG O2 Capacity 18.4 mL/dl (16-24) 11/07/17 14:45 ABG Potassium 4.4 mmol/L (3.6-5.2) 11/07/17 17:00 VBG pH 7.36 (7.32-7.43) 11/01/17 13:20 VBG pCO2 58.0 (40-60) 11/01/17 13:20 VBG HCO3 32.8 mmol/l (21-28) H 11/01/17 13:20 VBG Total CO2 34.6 mmol.L (22-28) H 11/01/17 13:20 VBG O2 Sat (Calc) 42.0 % (40-65) 11/01/17 13:20 VBG Base Excess 5.6 mmol/L (0.0-2.0) H 11/01/17 13:20 VBG Potassium 4.7 mmol/L (3.6-5.2) 11/01/17 13:20 Hgb O2 Saturation 95.5 % (95.0-98.0) 11/07/17 14:45 Sodium 134.0 mmol/L (132-148) 11/07/17 17:00 Chloride 106.0 mmol/L (98-107) 11/07/17 17:00 Glucose 107 mg/dl (65-105) H 11/07/17 17:00 Lactate 0.7 mmol/L (0.7-2.1) 11/07/17 17:00 FiO2 35.0 % 11/07/17 17:00 Inspiratory BiPAP 12 11/07/17 17:00 Sodium 133 mmol/L (132-148) 11/10/17 07:00 Potassium 4.9 mmol/L (3.6-5.0) 11/10/17 07:00 Chloride 101 mmol/L (98-107) 11/10/17 07:00 Carbon Dioxide 26 mmol/L (21-33) 11/10/17 07:00 Anion Gap 10 (10-20) 11/10/17 07:00 BUN 26 mg/dL (7-21) H 11/10/17 07:00 Creatinine 0.8 mg/dl (0.7-1.2) 11/10/17 07:00 Est GFR ( Amer) > 60 11/10/17 07:00 Est GFR (Non-Af Amer) > 60 11/10/17 07:00 POC Glucose (mg/dL) 118 mg/dL (65-110) H 11/07/17 14:36 Random Glucose 82 mg/dL (70-110) 11/10/17 07:00 Calcium 8.4 mg/dL (8.4-10.5) 11/10/17 07:00 Phosphorus 2.7 mg/dL (2.5-4.5) 11/10/17 07:00 Magnesium 2.0 mg/dL (1.7-2.2) 11/10/17 07:00 Total Bilirubin 0.6 mg/dL (0.2-1.3) 11/10/17 07:00 AST 23 U/L (14-36) 11/10/17 07:00 ALT 26 U/L (7-56) 11/10/17 07:00 Alkaline Phosphatase 73 U/L (38-126) 11/10/17 07:00 Ammonia < 9 umol/L (9-33) L 11/08/17 06:00 Lactate Dehydrogenase 518 U/L (333-699) 11/08/17 07:00 Troponin I 0.01 ng/mL D 11/07/17 15:52 NT-Pro-B Natriuret Pep 2150 pg/mL (0-450) H 11/02/17 12:01 Total Protein 6.9 g/dL (5.8-8.3) 11/10/17 07:00 Albumin 3.0 g/dL (3.0-4.8) 11/10/17 07:00 Globulin 3.9 gm/dL 11/10/17 07:00 Albumin/Globulin Ratio 0.8 (1.1-1.8) L 11/10/17 07:00 Triglycerides 54 mg/dL (35-160) 11/04/17 07:00 Cholesterol 91 mg/dL (130-200) L 11/04/17 07:00 LDL Cholesterol Direct 50 mg/dL (0-129) 11/04/17 07:00 HDL Cholesterol 21 mg/dL (29-60) L 11/04/17 07:00 Procalcitonin < 0.05 NG/ML (0.19-0.49) L 11/01/17 13:20 Arterial Blood Potassium 4.4 mmol/L (3.6-5.2) 11/07/17 17:00 Venous Blood Potassium 4.7 mmol/L (3.6-5.2) 11/01/17 13:20 Urine Color Yellow (YELLOW) 11/01/17 11:55 Urine Appearance Clear (CLEAR) 11/01/17 11:55 Urine pH 7.0 (4.7-8.0) 11/01/17 11:55 Ur Specific [place] 1.025 (1.005-1.035) 11/01/17 11:55 Urine Protein 30 mg/dL (<30 mg/dL) H 11/01/17 11:55 Urine Glucose (UA) Negative mg/dL (NEGATIVE) 11/01/17 11:55 Urine Ketones Negative mg/dL (NEGATIVE) 11/01/17 11:55 Urine Blood Negative (NEGATIVE) 11/01/17 11:55 Urine Nitrate Negative (NEGATIVE) 11/01/17 11:55 Urine Bilirubin Negative (NEGATIVE) 11/01/17 11:55 Urine Urobilinogen >=8.0 E.U./dL (<1 E.U./dL) 11/01/17 11:55 Ur Leukocyte Esterase Trace Cece/uL (NEGATIVE) H 11/01/17 11:55 Urine RBC 0 - 2 /hpf (0-2) 11/01/17 11:55 Urine WBC 2 - 5 /hpf (0-6) 11/01/17 11:55 Ur Epithelial Cells 6 - 8 /hpf (0-5) 11/01/17 11:55 Amorphous Sediment Few 11/01/17 11:55 Urine Bacteria Many (NEG) 11/01/17 11:55 Hyaline Casts 0 - 2 /hpf 11/01/17 11:55 Coarse Granular Casts Trace /hpf (0-2) H 11/01/17 11:55 Urine Other [place]yeast 11/01/17 11:55 Fluid Type Spinal fluid 11/01/17 16:54 CSF Volume 2 mL (0-1) H 11/01/17 16:54 CSF Appearance Clear/colorless (CLEAR) 11/01/17 16:54 CSF WBC 18.0 /uL (0.0-5.0) H 11/01/17 16:54 CSF RBC 10.0 /uL (0.0-0.0) H 11/01/17 16:54 CSF Total Cell Counted 100 (0-0) H 11/01/17 16:54 CSF Neutrophils 1 % (0-0) H 11/01/17 16:54 CSF Lymphocytes 98.0 % (0-0) H 11/01/17 16:54 CSF Monos/Macrophages 1 % (0-0) H 11/01/17 16:54 CSF Comment Straw 11/01/17 16:54 CSF Glucose 70 mg/dL (40-70) 11/01/17 16:54 CSF LDH TNP 11/01/17 16:54 CSF Total Protein 37.0 mg/dL (12-60) 11/01/17 16:54 CSF Cryptococcus Ag Not detected (Not Detected) 11/01/17 16:54 Urine Opiates Screen Negative (NEGATIVE) 11/07/17 18:47 Urine Methadone Screen Positive (NEGATIVE) H 11/07/17 18:47 Ur Barbiturates Screen Negative (NEGATIVE) 11/07/17 18:47 Ur Phencyclidine Scrn Negative (NEGATIVE) 11/07/17 18:47 Ur Amphetamines Screen Negative (NEGATIVE) 11/07/17 18:47 U Benzodiazepines Scrn Negative (NEGATIVE) 11/07/17 18:47 U Oth Cocaine Metabols Negative (NEGATIVE) 11/07/17 18:47 U Cannabinoids Screen Negative (NEGATIVE) 11/07/17 18:47 Rheumatoid Arth Interp Positive (NEGATIVE) H 11/06/17 10:30 SHAZIA 6 Profile Negative (NEGATIVE) 11/06/17 10:30 Absolute Lymphs (Flow) 803 Cells/mcL (850-3900) L 11/02/17 09:00 % CD4 Cells 20 Percent (30-61) L 11/02/17 09:00 Absolute CD4 Count 164 Cells/mcL (490-1740) L 11/02/17 09:00 T-Help/Suppress Ratio 0.37 Ratio (0.86-5.00) L 11/02/17 09:00 % CD8 Cells 55 Percent (12-42) H 11/02/17 09:00 Absolute CD8 Count 441 Cells/mcL (180-1170) 11/02/17 09:00 T-Lymph Analys Comment See note 11/02/17 09:00 HSV Source Description Csf 11/01/17 16:54 HSV I DNA PCR Not detected (Not Detected) 11/01/17 16:54 HSV II DNA PCR Not detected (Not Detected) 11/01/17 16:54 HIV-1 RNA Qnt (RT-PCR) 4.16 (Not Detected) H 11/02/17 09:00 TB Test (QFT) Nil 0.04 IU/mL 11/03/17 08:00 TB Test Mitogen - Nil 0.27 IU/mL 11/03/17 08:00 TB Test TB - Nil 0.00 IU/mL 11/03/17 08:00 TB Test (QFT) Indeterminate (Negative) H 11/03/17 08:00 Beta-(1,3)-D-Glucan <31 pg/mL (<60) 11/02/17 12:06 B-(1,3)-D-Glucan Intrp Negative 11/02/17 12:06 - Hospital Course Hospital Course: 62 year old female with past medical history significant for HIV, pulmonary fibrosis and emphysema who presented with altered mental status which would later resolve. An LP was done and showed no evidence of bacterial meningitis. A CT head was negative for any acute ICA's. 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 An EEG was negative for any seizure activity. A chest x-ray showed left upper lobe interstitial infiltrate and minimal interstitial infiltrate in right lower lobe. An echocardiogram showed severe pHTN. Patient had a UDS that was positive for methadone, which patient denied taking. Cardiology, Pulmonology, Neurology and ID were consulted. She was started on ASA, statin, rochepin, azithromycin, mepron, IV solumedrol and acyclovir. A quantiferon study was done and was found to be indeterminate. Three AFB cultures were ordered to rule out TB but patient was only able to produce one sample, which was negative. Patient was found to have a CD4 count of 164. ID stated that patient was safe for discharge with course of zithromax and bactrim ppx. Cardiology and Pulmonology recommended outpatient pulmonology follow up and right heart cath. Patient was discharged on 11/10/17 with instructions written as below. - Date & Time of H&P Date of H&P: 11/01/17 Time of H&P: 21:07 Discharge Exam - Head Exam Head Exam: NORMOCEPHALIC - Eye Exam Eye Exam: EOMI, Normal appearance Pupil Exam: PERRL - ENT Exam ENT Exam: Mucous Membranes Moist - Neck Exam Neck exam: Full Rom - Respiratory Exam Respiratory Exam: Clear to PA & Lateral, NORMAL BREATHING PATTERN, UNREMARKABLE - Cardiovascular Exam Cardiovascular Exam: REGULAR RHYTHM - GI/Abdominal Exam GI & Abdominal Exam: Normal Bowel Sounds, Unremarkable - Extremities Exam Extremities exam: normal inspection - Neurological Exam Neurological exam: Alert, Oriented x3 - Psychiatric Exam Psychiatric exam: Normal Affect, Normal Mood - Skin Skin Exam: Dry, Intact, Normal Color, Warm Discharge Plan - Discharge Medications Prescriptions: Azithromycin [Zithromax] 500 mg PO DAILY #10 tab Methylprednisolone [Medrol Dose Pack (21 tabs)] 4 mg PO DAILY #21 mg Sulfamethoxazole/Trimethoprim [Bactrim DS 800 mg-160 mg] 1 tab PO MWF #21 tab - Follow Up Plan Condition: FAIR Disposition: HOME/ ROUTINE Instructions: Azithromycin (Systemic), Transient Ischemic Attack (DC), Pneumonia, Adult (DC), Altered Mental Status (DC), Sulfamethoxazole and Trimethoprim Additional Instructions: Please follow up with your primary care doctor within one week of discharge Please follow up with your HIV specialist, Dr. Urbina, within one week of discharge Please take all medications as prescribed Please continue home Advair You have been prescribed two new medications as follows: 1. Azithromax: Antibiotic for pneumonia; Please take two 250mg tablets daily for five days 2. Bactrim: Antibiotic for PCP pneumonia; Please take one DS tablet on Sunday, Sunday, and Sunday until your HIV specialist discontinues If your symptoms return, please seek emergency medical attention
== END 2017-11-10 15:48 | disposition home or self-care (01) | DRG 706 ==
LOC: ED 11:23 → ERH 18:23 → 5RNO 20:32 → 5RSO 11-02 18:14 → ICU 11-07 15:34 → 3RNO 11-08 13:42
PROVIDERS: ADMIT Internal Medicine; ATTEND Internal Medicine
DX: B20 Human immunodeficiency virus [HIV] disease (principal); B59 Pneumocystosis; A87.9 Viral meningitis, unspecified; A41.9 Sepsis, unspecified organism; J15.9 Unspecified bacterial pneumonia; E87.2 Acidosis; J44.0 Chronic obstructive pulmonary disease with (acute) lower respiratory infection; J44.1 Chronic obstructive pulmonary disease with (acute) exacerbation; I10 Essential (primary) hypertension; I27.20 Pulmonary hypertension, unspecified; J84.10 Pulmonary fibrosis, unspecified; F17.210 Nicotine dependence, cigarettes, uncomplicated; Z79.82 Long term (current) use of aspirin; Z79.899 Other long term (current) drug therapy; Z87.01 Personal history of pneumonia (recurrent)